=== PATIENT | female | born 1965 | race Caucasian/White ===

== ENCOUNTER 2016-05-18 14:51 | Inpatient (IN) | payer MEDICAID, OTHER ==
[~2016-05-18] VITALS: Ht 160 cm; Wt 52.4 kg
[2016-05-18 15:10] VITALS: BP 138/83; PULSE 68; RESP 22; TEMP 98.1; O2SAT 99
[2016-05-18] MEDS ORDERED: LORazepam 2 MG TAB PO PRN (15:15)
[2016-05-18] MEDS ORDERED: LORazepam 2 MG/ML VIAL IV PUSH PRN ×4 (15:15)
[2016-05-18] MEDS ORDERED: FLUMAZENIL 0.5 MG/5 ML VIAL IV PUSH PRN (15:15)
[2016-05-18] MEDS ORDERED: LORazepam 1 MG TAB PO PRN (15:15)
--- NOTE | 2016-05-18 15:19 | PD ---
HPI Chief Complaint: Rojas Act Time Seen by Provider: 15:11 Travel History International Travel<30 days: No Contact w/Intl Traveler<30days: No History of Present Illness HPI Patient is a 51-year-old female brought by police on a Rojas act for alcohol intoxication and suicide attempt. The patient states that overnight some time she woke up and was depressed that she has started drinking again and took approximately 20 Klonopin 0.5 mg tablets. This was an attempt to harm herself because she is depressed but she is "an alcoholic ". She notified her boyfriend who called police. She states that she has been sober for 3 months but began drinking again 3 days prior. She has been drinking constantly. She takes BuSpar in addition to Klonopin for depression and anxiety. She has had previous suicide attempts. She denies any chronic medical problems. She endorses tobacco use, denies illicit drug use. She states that several months ago she had severe alcohol withdrawals and she is concerned this will happen again. Her last alcoholic drink was approximately 1 hour prior. [facility] Past Medical History Diminished Hearing: No Kidney Stones: Yes Immunizations Current: Yes Menopausal: Yes : 2 Tubal Ligation: Yes Past Surgical History Section: Yes Social History Alcohol Use: No Tobacco Use: No Substance Use: No Allergies-Medications (Allergen,Severity, Reaction): Coded Allergies: Sulfa (Verified Allergy, Intermediate, Hives, 05/18/16) Reported Meds & Prescriptions Reported Meds & Active Scripts Active Reported Klonopin (Clonazepam) 1 Mg Tab 1 Mg PO TID Buspirone (Buspirone HCl) 15 Mg Tab 15 Mg PO BID Review of Systems General / Constitutional: No: Fever HENT: No: Headaches, Lightheadedness Cardiovascular: No: Chest Pain or Discomfort Respiratory: No: Shortness of Breath Gastrointestinal: No: Abdominal Pain Neurologic: No: Weakness, Syncope, Focal Abnormalities, Tremor, Ataxia, Sensory Disturbance Psychiatric: Positive: Anxiety, Depression, Suicidal Ideations, Substance Abuse (ethanol) Physical Exam Narrative GENERAL: Well-developed and well-nourished adult female in no acute distress. Appears intoxicated but not overly somnolent. SKIN: Warm and dry. Good turgor without tenting. HEAD: Normocephalic and atraumatic. EYES: PERRL bilaterally, 5mm. EOMI bilaterally. Mild right lateral subconjunctival hemorrhage present. No injection or icterus present. No proptosis. Lids without edema or erythema. ENT: Buccal mucosa pink and moist. Oropharynx free of erythema, tonsillar hypertrophy, masses, swelling, asymmetry and exudates. Uvula midline and airway patent. NECK: Supple, no midline tenderness, crepitus or step-offs. Trachea midline, no JVD. No cervical or facial lymphadenopathy. CARDIOVASCULAR: Regular rate and rhythm without murmurs, rubs, clicks or gallops. Radial and posterior tibial pulses 2+ bilaterally. No pedal edema. Negative bilateral Homans sign. RESPIRATORY: Clear to auscultation bilaterally with symmetrical rise and fall, no distress or use of accessory muscles. Speaks in full sentences. GASTROINTESTINAL: Non-tender, non-distended. Normal bowel sounds all 4 quadrants. No masses or organomegaly present. MUSCULOSKELETAL: Patient freely moving all four extremities spontaneously. Extremities without clubbing, cyanosis, or edema. No obvious deformities. NEUROLOGIC: CN II-XII grossly intact. Awake and alert. Motor grossly within normal limits. Normal speech. PSYCHIATRIC: Tearful. Data Data Last Documented VS Vital Signs Date Time Temp Pulse Resp B/P Pulse Ox O2 Delivery O2 Flow Rate FiO2 05/18/16 16:52 20 05/18/16 15:10 98.1 68 138/83 99 Orders Complete Blood Count With Diff (05/18/16 15:09) Comprehensive Metabolic Panel (05/18/16 15:09) Urinalysis - C+S If Indicated (05/18/16 15:09) Drug Screen, Random Urine (05/18/16 15:09) Ed Urine Pregnancytest Poc (05/18/16 15:09) Alcohol (Ethanol) (05/18/16 15:09) Salicylates (Aspirin) (05/18/16 15:09) Tylenol (Acetaminophen) (05/18/16 15:09) Psych Screen (05/18/16 15:09) Diet Regular Basic (05/18/16 Dinner) Alcohol Withdrawal Asmt-Ciwa ONCE (05/18/16 15:09) Flumazenil Inj (Romazicon Inj) (05/18/16 15:15) Lorazepam (Ativan) (05/18/16 15:15) Lorazepam Inj (Ativan Inj) (05/18/16 15:15) Lorazepam (Ativan) (05/18/16 15:15) Lorazepam Inj (Ativan Inj) (05/18/16 15:15) Lorazepam Inj (Ativan Inj) (05/18/16 15:15) Lorazepam Inj (Ativan Inj) (05/18/16 15:15) Beta Hcg (Quant/Titer) (05/18/16 15:30) Labs Laboratory Tests Test 05/18/16 05/18/16 15:20 15:30 Urine Color YELLOW Urine Turbidity HAZY Urine pH 5.5 Urine Specific Tiger 1.016 Urine Protein TRACE mg/dL Urine Glucose (UA) NEG mg/dL Urine Ketones NEG mg/dL Urine Occult Blood MOD Urine Nitrite NEG Urine Bilirubin NEG Urine Urobilinogen LESS THAN 2.0 MG/DL Urine Leukocyte Esterase TRACE Urine RBC 4 /hpf Urine WBC 4 /hpf Urine Squamous Epithelial 10 /hpf Cells Urine Bacteria RARE /hpf Urine Mucus FEW /lpf Microscopic Urinalysis Comment CULT NOT INDICATED Urine Opiates Screen NEG Urine Barbiturates Screen NEG Urine Amphetamines Screen NEG Urine Benzodiazepines Screen POS Urine Cocaine Screen NEG Urine Cannabinoids Screen NEG White Blood Count 9.3 TH/MM3 Red Blood Count 4.49 MIL/MM3 Hemoglobin 13.6 GM/DL Hematocrit 40.7 % Mean Corpuscular Volume 90.8 FL Mean Corpuscular Hemoglobin 30.3 PG Mean Corpuscular Hemoglobin 33.4 % Concent Red Cell Distribution Width 13.3 % Platelet Count 192 TH/MM3 Mean Platelet Volume 8.3 FL Neutrophils (%) (Auto) 58.9 % Lymphocytes (%) (Auto) 32.5 % Monocytes (%) (Auto) 6.1 % Eosinophils (%) (Auto) 1.4 % Basophils (%) (Auto) 1.1 % Neutrophils # (Auto) 5.4 TH/MM3 Lymphocytes # (Auto) 3.0 TH/MM3 Monocytes # (Auto) 0.6 TH/MM3 Eosinophils # (Auto) 0.1 TH/MM3 Basophils # (Auto) 0.1 TH/MM3 CBC Comment DIFF FINAL Differential Comment Sodium Level 140 MEQ/L Potassium Level 3.8 MEQ/L Chloride Level 105 MEQ/L Carbon Dioxide Level 24.0 MEQ/L Anion Gap 11 MEQ/L Blood Urea Nitrogen 15 MG/DL Creatinine 0.62 MG/DL Estimat Glomerular Filtration 101 ML/MIN Rate Random Glucose 72 MG/DL Calcium Level 8.6 MG/DL Total Bilirubin 0.4 MG/DL Aspartate Amino Transf 25 U/L (AST/SGOT) Alanine Aminotransferase 27 U/L (ALT/SGPT) Alkaline Phosphatase 45 U/L Total Protein 6.3 GM/DL Albumin 3.4 GM/DL Human Chorionic Gonadotropin, LESS THAN 1 Quant MIU/ML Salicylates Level 4.6 MG/DL Acetaminophen Level LESS THAN 2.0 MCG/ML Ethyl Alcohol Level 180 MG/DL MDM Medical Decision Making Medical Screen Exam Complete: Yes Emergency Medical Condition: Yes Interpretation(s) Laboratory Tests Test 05/18/16 05/18/16 15:20 15:30 Urine Color YELLOW (YELLW/STRAW) Urine Turbidity HAZY (CLEAR) Urine pH 5.5 (5.0-8.5) Urine Specific Tiger 1.016 (1.002-1.035) Urine Protein TRACE mg/dL (NEG-TRACE) Urine Glucose (UA) NEG mg/dL (NEG) Urine Ketones NEG mg/dL (NEG) Urine Occult Blood MOD (NEG) Urine Nitrite NEG (NEG) Urine Bilirubin NEG (NEG) Urine Urobilinogen LESS THAN 2.0 MG/DL (LESS THAN 2.0) Urine Leukocyte Esterase TRACE (NEG) Urine RBC 4 /hpf (0-3) Urine WBC 4 /hpf (0-5) Urine Squamous Epithelial 10 /hpf (0-5) Cells Urine Bacteria RARE /hpf (NONE) Urine Mucus FEW /lpf (OCC) Microscopic Urinalysis Comment CULT NOT INDICATED Urine Opiates Screen NEG (NEG) Urine Barbiturates Screen NEG (NEG) Urine Amphetamines Screen NEG (NEG) Urine Benzodiazepines Screen POS (NEG) Urine Cocaine Screen NEG (NEG) Urine Cannabinoids Screen NEG (NEG) White Blood Count 9.3 TH/MM3 (4.0-11.0) Red Blood Count 4.49 MIL/MM3 (4.00-5.30) Hemoglobin 13.6 GM/DL (11.6-15.3) Hematocrit 40.7 % (35.0-46.0) Mean Corpuscular Volume 90.8 FL (80.0-100.0) Mean Corpuscular Hemoglobin 30.3 PG (27.0-34.0) Mean Corpuscular Hemoglobin 33.4 % Concent (32.0-36.0) Red Cell Distribution Width 13.3 % (11.6-17.2) Platelet Count 192 TH/MM3 (150-450) Mean Platelet Volume 8.3 FL (7.0-11.0) Neutrophils (%) (Auto) 58.9 % (16.0-70.0) Lymphocytes (%) (Auto) 32.5 % (9.0-44.0) Monocytes (%) (Auto) 6.1 % (0.0-8.0) Eosinophils (%) (Auto) 1.4 % (0.0-4.0) Basophils (%) (Auto) 1.1 % (0.0-2.0) Neutrophils # (Auto) 5.4 TH/MM3 (1.8-7.7) Lymphocytes # (Auto) 3.0 TH/MM3 (1.0-4.8) Monocytes # (Auto) 0.6 TH/MM3 (0-0.9) Eosinophils # (Auto) 0.1 TH/MM3 (0-0.4) Basophils # (Auto) 0.1 TH/MM3 (0-0.2) CBC Comment DIFF FINAL Differential Comment Sodium Level 140 MEQ/L (136-145) Potassium Level 3.8 MEQ/L (3.5-5.1) Chloride Level 105 MEQ/L (98-107) Carbon Dioxide Level 24.0 MEQ/L (21.0-32.0) Anion Gap 11 MEQ/L (5-15) Blood Urea Nitrogen 15 MG/DL (7-18) Creatinine 0.62 MG/DL (0.50-1.00) Estimat Glomerular Filtration 101 ML/MIN Rate (>89) Random Glucose 72 MG/DL (74-106) Calcium Level 8.6 MG/DL (8.5-10.1) Total Bilirubin 0.4 MG/DL (0.2-1.0) Aspartate Amino Transf 25 U/L (15-37) (AST/SGOT) Alanine Aminotransferase 27 U/L (10-53) (ALT/SGPT) Alkaline Phosphatase 45 U/L (45-117) Total Protein 6.3 GM/DL (6.4-8.2) Albumin 3.4 GM/DL (3.4-5.0) Human Chorionic Gonadotropin, LESS THAN 1 Quant MIU/ML (0-5) Salicylates Level 4.6 MG/DL (2.8-20.0) Acetaminophen Level LESS THAN 2.0 MCG/ML (10.0-30.0) Ethyl Alcohol Level 180 MG/DL (0-5) Differential Diagnosis Alcohol intoxication versus benzodiazepine overdose versus SI versus depression versus anxiety versus bipolar disorder versus schizophrenia versus substance abuse versus mood disorder versus personality disorder versus adjustment disorder Narrative Course Patient is a 51-year-old female brought by police after her boyfriend notified them that she took Klonopin last evening in an attempt to kill herself. She states she is an alcoholic and has been sober for 3 months but has been drinking steadily for 3 days. Last evening she was depressed about this and took approximately 20 Klonopin 0.5 mg tablets. She is awake, alert and is ambulatory in the ED. She is tearful and appears slightly intoxicated but is not overly somnolent. No cyanosis or signs of respiratory distress/depression. She has no medical complaints at this time and her exam is unremarkable. Vitals normal. Ordered labs and psych screening as well as CIWA protocol initiation, although she has no signs of withdrawal at present and is still intoxicated and last drink one hour prior. Nursing staff gave patient Ativan as part of see what protocol. She became irritated and agitated and was pacing and was threatening to stab and ear speculum into her carotid artery. He was called patient was observed and she sat in the bed and cooperated. Her labs show normal CBC. Metabolic panel shows glucose of 72 but is otherwise unremarkable. Patient was given juice to drink. HCG less than 1. She was less 4.6, serum ethanol less than 2. Ethanol 180. UDS positive for benzodiazepines. Urinalysis shows 4 rbc's, 4 wbc's and 10 squamous epithelial cells, no culture as is likely contaminant. Patient denies any GI/ symptoms on reexam. She is medically cleared to proceed with psych evaluation Diagnosis Primary Impression: Suicidal behavior with attempted self-injury Additional Impressions: Alcohol abuse Alcohol intoxication Qualified Code: F10.120 - Alcohol intoxication, uncomplicated Condition: Stable Vasyl Augustine III May 18, 2016 15:19
[2016-05-18 15:56] LABS: AUTOMATED NEUTROPHIL # 5.4 TH/MM3 (1.8-7.7); BASOPHIL # 0.1 TH/MM3 (0-0.2); BASOPHIL % 1.1 % (0.0-2.0); EOSINOPHIL # 0.1 TH/MM3 (0-0.4); EOSINOPHIL % 1.4 % (0.0-4.0); HEMATOCRIT 40.7 % (35.0-46.0); HEMO FLAGS DIFF FINAL; LYMPH % 32.5 % (9.0-44.0); MEAN CELL VOLUME 90.8 FL (80.0-100.0); MEAN CORPUSCULAR HEMOGLOBIN 30.3 PG (27.0-34.0); MEAN CORPUSCULAR HGB CONC 33.4 % (32.0-36.0); MONO % 6.1 % (0.0-8.0); NEUT % 58.9 % (16.0-70.0); PLATELET COUNT 192 TH/MM3 (150-450); RED BLOOD COUNT 4.49 MIL/MM3 (4.00-5.30); RED CELL DISTRIBUTION WIDTH 13.3 % (11.6-17.2); WHITE BLOOD COUNT 9.3 TH/MM3 (4.0-11.0)
[2016-05-18 16:16] LABS: BACTERIA, URINE RARE /hpf; BLOOD, URINE MOD (NEG); COMMENT (UR) CULT NOT INDICATED; CULTURE IF INDICATED CULT NOT INDICATED; GLUCOSE,URINE NEG (NEG); KETONE, URINE NEG (NEG); MUCUS URINE FEW /lpf (OCC); NITRITE,URINE NEG (NEG); PH, URINE 5.5 (5.0-8.5); SQUAMOUS EPITHELIAL CELL URINE 10 /hpf (0-5); URINE COLOR YELLOW (YELLW/STRAW)
[2016-05-18 16:18] LABS: AMPHETAMINE, URINE NEG (NEG); BARBITURATES, URINE NEG (NEG); COCAINE, URINE NEG (NEG)
[2016-05-18 16:32] LABS: ACETAMINOPHEN LESS THAN 2.0 MCG/ML (10.0-30.0); ALT (GPT) 27 U/L (10-53); ANION GAP 11 MEQ/L (5-15); AST (GOT) 25 U/L (15-37); BLOOD UREA NITROGEN 15 MG/DL (7-18); CHLORIDE 105 MEQ/L (98-107); GLOMERULAR FILTRATION RATE 101 ML/MIN (>89); POTASSIUM 3.8 MEQ/L (3.5-5.1); SODIUM (NA) 140 MEQ/L (136-145)
[2016-05-18 16:36] LABS: ALKALINE PHOSPHATASE 45 U/L (45-117); BETA HCG QUANT LESS THAN 1 MIU/ML (0-5); TOTAL BILIRUBIN ADULT 0.4 MG/DL (0.2-1.0)
[2016-05-18] MEDS ORDERED: CLON1 PO (16:51)
[2016-05-18] MEDS ORDERED: BUSP15TA PO (16:51)
[2016-05-18] MEDS ORDERED: MAGNESIUM HYDROXIDE SUSP 30 ML CUP PO PRN (22:00)
[2016-05-18] MEDS ORDERED: ALUMINUM/MAGNESIUM/SIMETH 30 ML CUP PO PRN (22:00)
[2016-05-18 22:20] VITALS: BP 139/66; PULSE 88; RESP 18; O2SAT 96
[2016-05-18 23:35] VITALS: BP 129/70; PULSE 90; RESP 18; TEMP 98.5; O2SAT 96
[2016-05-19 05:46] VITALS: BP 129/93; PULSE 90; RESP 18; TEMP 98.2; O2SAT 95
[2016-05-19] MEDS: NICOTINE 21 MG/24 HR PATCH T-DERMAL SCH (09:00)
[2016-05-19] MEDS: REMOVE OLD NICOTINE PATCH T-DERMAL SCH (09:00)
[2016-05-19] MEDS ORDERED: LORazepam 2 MG/ML VIAL IM PRN ×4 (11:30→15:15)
[2016-05-19] MEDS: ACETAMINOPHEN 325 MG TAB PO PRN ×2 (11:30→16:03)
--- NOTE | 2016-05-19 11:47 | MH ---
cc: MAURILIO CHAPARRO MD DATE OF ADMISSION 05/18/2016 ADMITTING DIAGNOSES Alcohol dependence with alcohol induced mood disorder F10.24. LEGAL STATUS The patient is declining ongoing voluntary psychiatric hospitalization. I will retain her under the Rojas ACT for now and possibly initiate a physician certificate as detailed below. The patient retains capacity to consent for medications. HISTORY OF PRESENT ILLNESS Ms. Waller is a 51-year-old female with a history of alcohol use disorder who presents under a Rojas ACT following a Klonopin overdose. The patient apparently made the overdose in the setting of unhappiness at her relapse to alcohol. Reviewing the electronic medical record, I see no prior psychiatric contact within our system. The patient seen and examined with counselor. Chart reviewed. Case discussed with nurse on the inpatient psychiatric unit. On my examination today, the patient reports "I just wanted to go to sleep. I do not want to . I just want to stop drinking. I have had great success with AA until about 10 days ago. It got cold and I stopped going." The patient reports that she had been sober for about the last three months, per relapsed to alcohol this past Tuesday. She has been drinking about a pint of liquor at least a day to start. She denies any feelings of low mood, although she is somewhat ashamed and frustrated with herself for relapsing. No hopelessness or worthlessness. No reported sleep disruption or appetite disruption. No reported focus or concentration issues. She denies any suicidal ideation and says that she wants to see her daughter graduate from high school. She also wants to live for her pet dogs. No homicidal ideation. Denies audiovisual hallucinations and I can elicit no delusional beliefs. I can detect no evidence of nate or hypomania in this patient. The remainder of the psychiatric ROS is negative. PAST PSYCHIATRIC HISTORY The patient denies a history of psychiatric diagnosis. She denies a history of inpatient or outpatient psychiatric treatment. She denies a history of previous suicide attempts. FAMILY HISTORY The patient denies a family history of serious mental illness, substance use disorder, or suicide. CHEMICAL DEPENDENCY HISTORY The patient reports that she had been sober for three months, but relapsed this past Tuesday to alcohol. She drinks at least a pint of liquor daily. Her longest sober time was 10 years which she accomplished with AA. She has had episodes of SVT in the past from alcohol withdrawal, but denies any history of DTs or seizures. She does endorse a history of blackouts and also had a DUI in 1999. She smokes about two packs of cigarettes a day. She denies any other substance use. SOCIAL HISTORY The patient denies a history of physical, verbal or sexual abuse. She lives with her daughter, boyfriend and two dogs. She has been with her boyfriend for about five years. She has two daughters. She is high school educated. She works as a property administrator and a payroll secretary. She denies any or legal history. She does endorse islam or spiritual beliefs. She denies any access to guns or firearms. PAST MEDICAL HISTORY The patient denies any history of medical problems. ALLERGIES The patient reports an allergy to SULFA. MEDICATIONS The patient reports that she takes no medications on an outpatient basis. The Klonopin was reportedly an old prescription. She also had been prescribed BuSpar in the past. REVIEW OF SYSTEMS The patient reports a headache, but reports no vision or hearing changes, no chest pain, no shortness of breath, no bowel or bladder issues. No symptoms of withdrawal. No other physical complaints. PHYSICAL EXAMINATION A physical examination was completed in the emergency room by the ER staff and the patient was medically cleared. On my examination today, the patient appears to be in no acute physical distress. She is a well-nourished, well-developed middle-aged female. No hand tremor, no diaphoresis, no mydriasis, no tongue fasciculations, no other signs of alcohol withdrawal. No other abnormal motor movements noted. VITAL SIGNS: Temperature is 98.2, pulse is 90, respirations 18, blood pressure 129/93, pulse oximetry of 95% on room air. LABORATORY FINDINGS CBC is unremarkable. CMP is remarkable only for a very mild hypoglycemia at 72. Beta hCG is negative. Toxicology is positive for benzodiazepines and alcohol level was 180 on presentation here. Urinalysis revealed moderate occult blood and trace leukocyte esterase, but no pyuria. MENTAL STATUS EXAM The patient is in hospital gown. She is somewhat disheveled, but maintaining basic hygiene. She is awake and alert and oriented x3. No evidence of delirium. No abnormal motor movements noted. Speech is within normal limits for rate, tone and volume. Language and fund of knowledge seem average for age. Mood is reportedly not particularly depressed, but affect is somewhat sullen and blunted. Thought process linear. No loosening of associations. No evident delusions. Denies audiovisual hallucinations. Denies suicidal or homicidal ideation. Insight and judgment seems fair to poor at best. ASSESSMENT/PLAN This is a 51-year-old female with a psychiatric history as detailed above who presents under a Rojas ACT after ingesting some Klonopin out of frustration at relapsing to alcohol. The patient denies that this was a genuine suicidal attempt and denies any suicidal ideation at this time. The ingestion did take place in the setting of alcohol and she does endorse a recent relapse to alcohol after about three months of sobriety. My suspicion is that the patient's issues are chiefly substance use related, and she would likely benefit from more intense attention at an addiction receiving facility. However, I would like the counselor to obtain collateral from the patient's support system to ensure that there is not some more occult depressive diathesis at play here. The patient requires psychiatric admission at this time for observation and safety. Admit inpatient. I will leave the patient under the Rojas ACT for now. If the patient's issues do field return repairer to be primarily substance use disorder, then I will initiate a physician certificate with the Rojas ACT. If not, we may observe the patient under the Rojas ACT. The patient retains capacity to consent for medications. I will place the patient under a CIWA protocol with Ativan for the management of any withdrawal, as well as thiamine and folate. Seizure and fall precautions. Vitals every shift. Counselor to see. Disposition planning. Estimated length of stay: Three days. UPDATE: Spoke with counselor, who has obtained collateral from boyfriend. As suspected, this is chiefly a substance use issue. I will lift the Rojas Act and place patient on a physician's certificate. I have notified the devulcanizer charger to contact [facility] to arrange transfer to addiction receiving facility once a bed is available. Maurilio LUX /11:13 AM 11:26 AM [facility]INSON
[2016-05-19 19:54] VITALS: BP 138/78; PULSE 79; RESP 18; TEMP 98.3; O2SAT 100
[2016-05-20 06:31] VITALS: BP 121/65; PULSE 78; RESP 18; TEMP 98; O2SAT 97
[2016-05-20] MEDS: REMOVE OLD NICOTINE PATCH T-DERMAL SCH (09:00)
[2016-05-20] MEDS: FOLIC ACID 1 MG TAB PO SCH (09:13)
[2016-05-20] MEDS: NICOTINE 21 MG/24 HR PATCH T-DERMAL SCH (09:13)
[2016-05-20] MEDS: THIAMINE HCL 100 MG TAB PO SCH (09:13)
--- NOTE | 2016-05-20 11:02 | HHI.PYPN ---
Subjective Remarks Patient seen and examined with counselor and nursing staff. Chart reviewed. Case discussed with nursing staff. Patient is presently under a physician's certificate and nursing staff has checked with the addiction receiving facility this morning; there are no beds currently but addiction receiving facility sales representative consultant said that they would call back this afternoon if there is an opening. On my examination today, patient is fairly sarcastic and sullen. She is dismissive of the care she is receiving here and takes no ownership for her ingestion. She thinks that she can manage her substance use better on her own. She denies any suicidal or homicidal ideation. Requests Motrin for a headache , and I did discuss with her the potential risk of this medication in an alcoholic patient. Review of Systems Other Complains of typical headache; says she normally takes Motrin. No other physical complaints. No reported symptoms of withdrawal. Objective Alert: Yes [place]: Person (O x 3) Mood: Calm Affect: Restricted (sullen and dysphoric) Memory Intact: Comment (seems intact on clinical exam) Hallucinations: Other (no AVH) Delusions: No Delusion Type: Other (no delusions) Suicidal: Ideation (denies suicidal ideation) Homicidal: Ideation (denies homicidal ideation) Insight/Judgement Poor Remarks No hand tremor, no diaphoresis, no other signs of withdrawal noted. No other motoric abnormalities noted. Thought processes linear. Labs Labs reviewed. No new labs. Vitals/IOs Vital Signs Date Time Temp Pulse Resp B/P Pulse Ox O2 Delivery O2 Flow Rate FiO2 05/20/16 06:31 98.0 78 18 121/65 97 05/18/16 22:20 Room Air Assessment & Plan Problem List: (1) Alcohol dependence with alcohol-induced mood disorder ICD Code: F10.24 Assessment & Plan Pt remains on PC with plan to send her to ACT once a bed is available. Continue CIWA PRN withdrawal. Add Motrin for headache. Continue other medications and care as ordered. Justification for Cont. Inpt. Monitoring for safety. Risk for decompensation. Discharge Planning Try to get pt to ACT drug/alcohol bed today or tomorrow am before PC expires. Request HC Surrog/Guard Advoc?: No Maurilio Acuna MD May 20, 2016 11:02
[2016-05-20] MEDS: IBUPROFEN 800 MG TAB PO PRN ×5 (11:48→19:49)
[2016-05-20] MEDS: ACETAMINOPHEN 325 MG TAB PO PRN ×2 (15:14→16:51)
[2016-05-20 18:31] VITALS: BP 150/69; PULSE 75; RESP 16; TEMP 98.6; O2SAT 99
[2016-05-21 05:32] VITALS: BP 116/73; PULSE 72; RESP 16; TEMP 97.7; O2SAT 96
[2016-05-21] MEDS: REMOVE OLD NICOTINE PATCH T-DERMAL SCH (09:00)
[2016-05-21] MEDS: NICOTINE 21 MG/24 HR PATCH T-DERMAL SCH (09:37)
[2016-05-21] MEDS: FOLIC ACID 1 MG TAB PO SCH (09:38)
[2016-05-21] MEDS: THIAMINE HCL 100 MG TAB PO SCH (09:38)
[2016-05-21] MEDS: IBUPROFEN 800 MG TAB PO PRN ×2 (11:56→11:58)
[2016-05-21] MEDS ORDERED: VITA100T2 PO (12:13)
[2016-05-21] MEDS ORDERED: FOLI1TAB4 PO (12:13)
--- NOTE | 2016-05-21 12:13 | HHI.DS ---
Psychiatry Discharge Summary Inpatient Psychiatric care?: Yes Advance Directive: Yes Mental Health AdvanceDirective: No Health Care Proxy: No Admission Admission Date May 18, 2016 at 23:07 Admission Diagnosis: (1) Alcohol dependence with alcohol-induced mood disorder ICD Code: F10.24 Brief History Ms. Waller is a 51-year-old female with a history of alcohol use disorder who presents under a Rojas ACT following a Klonopin overdose. The patient apparently made the overdose in the setting of unhappiness at her relapse to alcohol. Reviewing the electronic medical record, I see no prior psychiatric contact within our system. The patient seen and examined with counselor. Chart reviewed. Case discussed with nurse on the inpatient psychiatric unit. On my examination today, the patient reports "I just wanted to go to sleep. I do not want to . I just want to stop drinking. I have had great success with AA until about 10 days ago. It got cold and I stopped going." The patient reports that she had been sober for about the last three months, per relapsed to alcohol this past Tuesday. She has been drinking about a pint of liquor at least a day to start. She denies any feelings of low mood, although she is somewhat ashamed and frustrated with herself for relapsing. No hopelessness or worthlessness. No reported sleep disruption or appetite disruption. No reported focus or concentration issues. She denies any suicidal ideation and says that she wants to see her daughter graduate from high school. She also wants to live for her pet dogs. No homicidal ideation. Denies audiovisual hallucinations and I can elicit no delusional beliefs. I can detect no evidence of nate or hypomania in this patient. The remainder of the psychiatric ROS is negative. Tobacco Use In Past 30 Days: Refused To Answer Alcohol Use: Monthly or Less Hospital Course Patient was admitted to a locked, inpatient psychiatric unit. Appropriate precautions were in place throughout patient's hospital stay. Patient was seen and examined daily on the unit by psychiatry and also visited by counselor. Patient was placed on a CIWA scale with Ativan for the management of any withdrawal. Patient did not experience clinically significant withdrawal while on the inpatient unit. There was no evidence of any suicidality or homicidality on the inpatient unit. Patient remained in good behavioral control. On the day of discharge: Case discussed with nursing staff. Patient is described no behavioral problem. On my examination today, the patient requests discharge from the inpatient psychiatric unit. Nursing staff has once again contacted the addiction receiving facility, and they have once again said they have no capacity for the patient. Patient's physician's certificate is expiring today. She denies any suicidal or homicidal ideation. She denies any AVH and there is no evidence of psychosis. No issues with mood. No reported withdrawal symptoms or physical complaints. Patient is declining voluntary psychiatric hospitalization. I have no basis to retain this patient involuntarily at this point as there has been no evidence of ongoing risk of harm to self and she is attending to her basic needs. I will arrange for her discharged today in stable condition. We had strongly encourage the patient to accept at the very least a chemical dependency referral, but she has declined any referral on discharge. Patient is to follow-up with primary care. Lengthy psychoeducation to the patient regarding the management of alcohol use disorder. Patient counseled to return to the psychiatric emergency room for any concerning psychiatric symptoms. Results Blood Pressure 116 / 73 Vital Signs Date Time Temp Pulse Resp B/P Pulse Ox O2 Delivery O2 Flow Rate FiO2 05/21/16 05:32 97.7 72 16 116/73 96 05/18/16 22:20 Room Air Laboratory Tests Test 05/18/16 05/18/16 15:20 15:30 Urine Turbidity HAZY (CLEAR) Urine Occult Blood MOD (NEG) Urine Leukocyte Esterase TRACE (NEG) Urine RBC 4 /hpf (0-3) Urine Bacteria RARE /hpf (NONE) Urine Mucus FEW /lpf (OCC) Urine Benzodiazepines Screen POS (NEG) Random Glucose 72 MG/DL (74-106) Total Protein 6.3 GM/DL (6.4-8.2) Acetaminophen Level LESS THAN 2.0 MCG/ML (10.0-30.0) Ethyl Alcohol Level 180 MG/DL (0-5) Summary of Procedures None done Imaging None done Pending results at discharge: No Medications # of Antipsychotic meds at D/C: 0 Approp Antipsych med options 1 - Minimum of three failed multiple trials of monotherapy. 2 - Documented plan to taper to monotherapy due to previous use of multiple meds OR cross-taper in progress at D/C. 3 - Documentation of augmentation of Clozapine. 4 - Justification other than those listed in allowable values 1-3, document here : Discharge Discharge Date: May 21, 2016 Discharge Diagnosis: (1) Alcohol dependence Diagnosis: Principal ICD Code: F10.20 Mental Status Exam at Disch Patient is casually dressed. She is well groomed and appears to be maintaining basic hygiene. She is awake and alert and oriented 3. No abnormal motor movements noted. No signs of withdrawal noted. Steady gait and station. Speech is within normal limits for rate, tone and volume. Language and fund of knowledge seem adequate and appropriate for age. Mood is fair and affect is blunted. Thought process linear. No loosening of associations. No evident delusions. Denies AVH. Denies suicidal or homicidal ideation. Insight and judgment are fair. Pt Condition on Discharge: Stable Discharge Disposition: Discharge Home Discharge Instructions Diet Instructions: As Tolerated, No Restrictions Activities you can perform: Weight Bearing as Kareen Scheduled Appointment: patient declines New Medications: Folic Acid (Folate) 1 Mg Tab 1 MG PO DAILY Nutritional Supplement Days 30 Ref 0 TAB Thiamine (Vitamin B-1) 100 Mg Tab 100 MG PO DAILY Nutritional Supplement Days 30 Ref 0 TAB Discontinued Medications: Buspirone (Buspirone) 15 Mg Tab 15 MG PO BID Anxiety Ref 0 TAB Clonazepam (Klonopin) 1 Mg Tab 1 MG PO TID Ref 0 TAB Discharge Time <= 30 minutes Discharge/Advance Care Plan Health Problems: (1) Alcohol dependence with alcohol-induced mood disorder Goals to promote your health * To prevent worsening of your condition and complications * To maintain your health at the optimal level Directions to meet your goals Take your medications as prescribed Follow your dietary instruction Follow activity as directed Keep your appointments as scheduled Take your immunizations and boosters as scheduled If your symptoms worsen call your PCP, if no PCP go to Urgent Care Center or Emergency Room For 22/11 questions related to your inpatient stay or results of tests pending at discharge, please contact Dr. Maurilio Acuna at Smoking is Dangerous to Your Health. Avoid second hand smoking Problem Qualifiers (1) Alcohol dependence: Qualified Code: F10.20 - Uncomplicated alcohol dependence Maurilio Acuna MD May 21, 2016 12:13
== END 2016-05-21 14:00 | disposition home or self-care (01) | DRG 897 ==
LOC: NEPA 14:51 → NEDA 23:07 → H270 23:49
PROVIDERS: ADMIT Psychiatry & Neurology Psychiatry; ATTEND Psychiatry & Neurology Psychiatry
DX: F10.24 Alcohol dependence with alcohol-induced mood disorder (principal); R51 Headache; T42.4X2A Poisoning by benzodiazepines, intentional self-harm, initial encounter; Y90.6 Blood alcohol level of 120-199 mg/100 ml; Z88.2 Allergy status to sulfonamides; Z72.0 Tobacco use
CPT/HCPCS: 80053; 80307; 80320; 80329; 81001; 84702; 84703; 85025; 96374; G0480; J2060

== ENCOUNTER 2016-08-10 15:04 | Emergency (ER) | payer MEDICAID, OTHER ==
[~2016-08-10] VITALS: Ht 152.4 cm; Wt 56.8 kg
[2016-08-10] VITALS (7 sets, daily range): BP systolic 95–152; BP diastolic 51–73; PULSE 68–82; RESP 16–22; TEMP 98.4; O2SAT 93–100
[~2016-08-10 15:04] MED LIST: FOLI1TAB4 PO; VITA100T2 PO
--- NOTE | 2016-08-10 15:26 | PD ---
HPI Chief Complaint: Rojas act/EtOH/suicidal ideation Time Seen by Provider: 15:22 Travel History International Travel<30 days: No Contact w/Intl Traveler<30days: No Traveled to known affect area: No History of Present Illness HPI 51-year-old female brought in under the Rojas act was signed ideation. Patient states she is a chronic alcoholic who cannot get sober. Patient called 911 herself to report suicidal ideation. When officers arrived she willingly admitted that she was suicidal but does not have a specific plan. Patient has history of anxiety and difficulty with withdrawal from EtOH. She denies history of seizures. Patient denies any acute medical issues at this time. She is allergic to sulfa. PFS Past Medical History Cancer: No Cardiovascular Problems: No Diabetes: No Diminished Hearing: No Headaches: No Kidney Stones: Yes Psychiatric: No Immunizations Current: Yes Seizures: No Menopausal: Yes : 2 Tubal Ligation: Yes Past Surgical History Section: Yes Social History Alcohol Use: Yes (binge) Tobacco Use: Yes Substance Use: No Allergies-Medications (Allergen,Severity, Reaction): Coded Allergies: Sulfa (Verified Allergy, Intermediate, Hives, 08/10/16) Reported Meds & Prescriptions Reported Meds & Active Scripts Active No Active Prescriptions or Reported Medications Review of Systems ROS Limitations: Intoxication Except as stated in HPI: all other systems reviewed are Neg General / Constitutional: No: Fever Eyes: No: Visual changes HENT: No: Headaches Cardiovascular: No: Chest Pain or Discomfort Respiratory: No: Shortness of Breath Gastrointestinal: No: Abdominal Pain Genitourinary: No: Dysuria Musculoskeletal: No: Pain Skin: No Rash Neurologic: No: Weakness Psychiatric: No: Depression Endocrine: No: Polydipsia Hematologic/Lymphatic: No: Easy Bruising Physical Exam Narrative GENERAL: Patient is anxious but no acute distress. SKIN: Warm and dry. Normal color. Normal turgor. HEAD: Atraumatic. Normocephalic. EYES: Pupils equal and round. No scleral icterus. No injection or drainage. ENT: No nasal bleeding or discharge. Mucous membranes pink and moist. Pharynx is normal. Airway is patent. NECK: Trachea midline. No JVD. CARDIOVASCULAR: Regular rate and rhythm. No murmurs gallops or rubs. RESPIRATORY: No accessory muscle use. Clear to auscultation. Breath sounds equal bilaterally. MUSCULOSKELETAL: Extremities without clubbing, cyanosis, or edema. No obvious deformities. NEUROLOGICAL: Awake and alert. No obvious cranial nerve deficits. Motor grossly within normal limits. Five out of 5 muscle strength in the arms and legs. Normal speech. PSYCHIATRIC: Appropriate mood and affect; insight and judgment normal. Data Data Last Documented VS Vital Signs Date Time Temp Pulse Resp B/P Pulse Ox O2 Delivery O2 Flow Rate FiO2 08/10/16 16:30 82 19 112/61 93 08/10/16 15:30 98.4 Orders Complete Blood Count With Diff (08/10/16 15:19) Comprehensive Metabolic Panel (08/10/16 15:19) Urinalysis - C+S If Indicated (08/10/16 15:19) Ed Urine Pregnancytest Poc (08/10/16 15:19) Psych Screen (08/10/16 15:19) Drug Screen, Random Urine (08/10/16 15:19) Alcohol (Ethanol) (08/10/16 15:19) Chlordiazepoxide (Librium) (08/10/16 15:30) Lorazepam (Ativan) (08/10/16 15:30) Diphenhydramine Inj (Benadryl Inj) (08/10/16 15:45) Lorazepam Inj (Ativan Inj) (08/10/16 16:15) Haloperidol Inj (Haldol Inj) (08/10/16 16:15) Restraints Violent (08/10/16 16:27) Sodium Chlor 0.9% 1000 Ml Inj (Ns 1000 M (08/10/16 16:45) Labs Laboratory Tests Test 08/10/16 15:35 White Blood Count 9.7 TH/MM3 Red Blood Count 4.54 MIL/MM3 Hemoglobin 13.6 GM/DL Hematocrit 41.0 % Mean Corpuscular Volume 90.3 FL Mean Corpuscular Hemoglobin 30.0 PG Mean Corpuscular Hemoglobin 33.3 % Concent Red Cell Distribution Width 13.4 % Platelet Count 221 TH/MM3 Mean Platelet Volume 7.9 FL Neutrophils (%) (Auto) 56.7 % Lymphocytes (%) (Auto) 34.8 % Monocytes (%) (Auto) 5.5 % Eosinophils (%) (Auto) 1.4 % Basophils (%) (Auto) 1.6 % Neutrophils # (Auto) 5.5 TH/MM3 Lymphocytes # (Auto) 3.4 TH/MM3 Monocytes # (Auto) 0.5 TH/MM3 Eosinophils # (Auto) 0.1 TH/MM3 Basophils # (Auto) 0.2 TH/MM3 CBC Comment DIFF FINAL Differential Comment Urine Color LIGHT-YELLOW Urine Turbidity CLEAR Urine pH 5.0 Urine Specific [place] 1.008 Urine Protein NEG mg/dL Urine Glucose (UA) NEG mg/dL Urine Ketones NEG mg/dL Urine Occult Blood LARGE Urine Nitrite NEG Urine Bilirubin NEG Urine Urobilinogen LESS THAN 2.0 MG/DL Urine Leukocyte Esterase NEG Urine RBC 8 /hpf Urine WBC 2 /hpf Urine Squamous Epithelial 2 /hpf Cells Urine Bacteria RARE /hpf Urine Mucus FEW /lpf Microscopic Urinalysis Comment CULT NOT INDICATED Sodium Level 146 MEQ/L Potassium Level 4.2 MEQ/L Chloride Level 114 MEQ/L Carbon Dioxide Level 22.1 MEQ/L Anion Gap 10 MEQ/L Blood Urea Nitrogen 10 MG/DL Creatinine 0.67 MG/DL Estimat Glomerular Filtration 93 ML/MIN Rate Random Glucose 71 MG/DL Calcium Level 8.8 MG/DL Total Bilirubin 0.3 MG/DL Aspartate Amino Transf 31 U/L (AST/SGOT) Alanine Aminotransferase 28 U/L (ALT/SGPT) Alkaline Phosphatase 42 U/L Total Protein 7.0 GM/DL Albumin 3.5 GM/DL Urine Opiates Screen NEG Urine Barbiturates Screen NEG Urine Amphetamines Screen NEG Urine Benzodiazepines Screen NEG Urine Cocaine Screen NEG Urine Cannabinoids Screen NEG Ethyl Alcohol Level 299 MG/DL [facility] Medical Decision Making Medical Screen Exam Complete: Yes Emergency Medical Condition: Yes Differential Diagnosis Rojas act. EtOH intoxication. Suicidal ideation. Narrative Course Patient is medically stable at time of exam. Psychiatric labs ordered per protocol including urine test. Patient is given 50 mg Librium by mouth as well as 1 mg lorazepam by mouth. Patient is awaiting medical bed placement. Patient is medically cleared for psychiatric evaluation. Patient became more and more agitated and anxious. She was moved to [facility]. Patient was placed in soft physical restraints, and was given 50 mg Benadryl IV as well as 5 of Haldol and [address] Mandel went in to see the patient at 1611 hrs. Labs returned showing normal CBC. CMP shows elevated sodium 146. Chloride of 114. BUN/creatinine are normal. Liver functions are normal. Alkaline phosphatase slightly decreased at 42. Patient is negative for urine drug screen, serum alcohol levels 299. Urinalysis is unremarkable except for 8 RBCs per high-power field. Patient is given 1 L normal saline IV. Patient is medically cleared for psychiatric evaluation. Diagnosis Primary Impression: Alcohol dependence with alcohol-induced mood disorder Additional Impressions: Suicidal ideations Medical clearance for psychiatric admission Scripts No Active Prescriptions or Reported Meds Condition: Stable Marvin Mccoy Aug 10, 2016 15:26
[2016-08-10] MEDS ORDERED: LORazepam 1 MG TAB PO ONE (15:30)
[2016-08-10] MEDS ORDERED: chlordiazePOXIDE 25 MG CAP PO ONE (15:30)
[2016-08-10] MEDS ORDERED: diphenhydrAMINE HCL 50 MG/ML VIAL IV PUSH ONE (15:45)
[2016-08-10 15:58] LABS: AUTOMATED NEUTROPHIL # 5.5 TH/MM3 (1.8-7.7); BASOPHIL # 0.2 TH/MM3 (0-0.2); BASOPHIL % 1.6 % (0.0-2.0); EOSINOPHIL # 0.1 TH/MM3 (0-0.4); EOSINOPHIL % 1.4 % (0.0-4.0); HEMO FLAGS DIFF FINAL; LYMPH % 34.8 % (9.0-44.0); LYMPHOCYTE # 3.4 TH/MM3 (1.0-4.8); MEAN CELL VOLUME 90.3 FL (80.0-100.0); MEAN CORPUSCULAR HGB CONC 33.3 % (32.0-36.0); MONO % 5.5 % (0.0-8.0); NEUT % 56.7 % (16.0-70.0); PLATELET COUNT 221 TH/MM3 (150-450); RED BLOOD COUNT 4.54 MIL/MM3 (4.00-5.30); RED CELL DISTRIBUTION WIDTH 13.4 % (11.6-17.2); WHITE BLOOD COUNT 9.7 TH/MM3 (4.0-11.0)
[2016-08-10 16:06] LABS: BACTERIA, URINE RARE /hpf; BLOOD, URINE LARGE (NEG); COMMENT (UR) CULT NOT INDICATED; CULTURE IF INDICATED CULT NOT INDICATED; GLUCOSE,URINE NEG (NEG); KETONE, URINE NEG (NEG); MUCUS URINE FEW /lpf (OCC); NITRITE,URINE NEG (NEG); SQUAMOUS EPITHELIAL CELL URINE 2 /hpf (0-5); URINE COLOR LIGHT-YELLOW (YELLW/STRAW)
[2016-08-10] MEDS ORDERED: LORazepam 2 MG/ML VIAL IM ONE (16:15)
[2016-08-10] MEDS ORDERED: HALOPERIDOL LACTATE 5 MG/ML AMP IM ONE (16:15)
[2016-08-10 16:30] LABS: ALKALINE PHOSPHATASE 42 U/L (45-117); ALT (GPT) 28 U/L (10-53); ANION GAP 10 MEQ/L (5-15); AST (GOT) 31 U/L (15-37); BICARBONATE 22.1 MEQ/L (21.0-32.0); BLOOD UREA NITROGEN 10 MG/DL (7-18); CHLORIDE 114 MEQ/L (98-107); GLOMERULAR FILTRATION RATE 93 ML/MIN (>89); SODIUM (NA) 146 MEQ/L (136-145); TOTAL BILIRUBIN ADULT 0.3 MG/DL (0.2-1.0)
[2016-08-10 16:35] LABS: POTASSIUM 4.2 MEQ/L (3.5-5.1)
[2016-08-10 16:36] LABS: AMPHETAMINE, URINE NEG (NEG); BARBITURATES, URINE NEG (NEG); COCAINE, URINE NEG (NEG)
[2016-08-10] MEDS ORDERED: SODIUM CHLOR 0.9% 1000 ML INJ 1,000 ML IV ONE (16:45)
[2016-08-11 02:14] VITALS: BP 139/63; PULSE 18; PULSE 91; RESP 18; O2SAT 95
[2016-08-11 06:34] VITALS: BP 170/82; PULSE 96; RESP 19; O2SAT 99
--- NOTE | 2016-08-11 11:30 | PD ---
History of Present Illness Chief Complaint: Psychiatric Symptoms Time Seen by Provider: 11:15 Travel History International Travel<30 Days: No Contact w/Intl Traveler<30days: No Known affected area: No Legal Status Legal Status: Rojas Act Rojas Act Signed By: Shruthi Riojas History of Present Illness: 51-year-old female with long history of alcoholism, who was recently in a alcohol program. After leaving the program she went back to binge drinking. She became upset with herself as a result. However, at this time she denies suicidal or homicidal ideation, plan or intention. She also denies any psychotic symptoms and her cognition is intact. She is not intoxicated at this time. She is verbally huong for safety. She is being encouraged to return to and appears willing to do so. In this physician's opinion, she does not meet criteria for a Rojas act for inpatient psychiatric hospitalization. PFSH Past Medical History Medical History: Denies Significant Hx Cancer: No Cardiovascular Problems: No Diabetes: No Diminished Hearing: No Headaches: No Kidney Stones: Yes Psychiatric: No Immunizations Current: Yes Seizures: No ?: Not Menopausal: Yes : 3 Para: 2 Miscarriage: 1 : 0 Tubal Ligation: Yes Past Surgical History Surgical History: No Previous Surgery Section: Yes Psychiatric History Psychiatric History Hx Psychiatric Treatment: PATIENT WAS LAST ADMITTED TO [facility] FROM 05/18/16 TO 05/21/16 FOR SUBSTANCE INDUCED MOOD DISORDER. History of Inpatient Treatment: Yes Guns or firearms in home: No Social History Hx Alcohol Use: Yes (binge) Hx Tobacco Use: Yes Hx Substance Use: Yes Substance Use Type: Alcohol Other Substances Used: IT IS UNKNOWN IF SHE HAS REC'D SUBSTANCE ABUSE TREATMENT Hx of Substance Use Treatment: Yes Allergies-Medications (Allergen,Severity, Reaction): Coded Allergies: Sulfa (Verified Allergy, Intermediate, Hives, 08/10/16) Reported Meds & Prescriptions Reported Meds & Active Scripts Active No Active Prescriptions or Reported Medications Review of Systems ROS Limitations: Clinical Condition Except as stated in HPI: all other systems reviewed are Neg Exam Exam Limitations: Clinical Condition Alert: Yes Bertram: Person, Place, Date, Situation Mood: Calm Affect: Appropriate Speech: Clear, Logical Eye Contact: Normal Memory Intact: Immediate, Recent, Remote Insight/Judgement Adequate except with regard to her drinking alcohol. MDM Medical Decision Making Medical Record Reviewed: Yes Assessment/Plan This physician counseled the patient regarding the tenets of alcoholics anonymous. In particular progress not perfection. The patient was encouraged to return to AA meetings and obtain a sponsor. She is not feeling desperate or suicidal at this time. Therefore she does not meet Rojas act criteria and she is not a candidate for inpatient psychiatric hospitalization. Orders Complete Blood Count With Diff (08/10/16 15:19) Comprehensive Metabolic Panel (08/10/16 15:19) Urinalysis - C+S If Indicated (08/10/16 15:19) Ed Urine Pregnancytest Poc (08/10/16 15:19) Psych Screen (08/10/16 15:19) Drug Screen, Random Urine (08/10/16 15:19) Alcohol (Ethanol) (08/10/16 15:19) Chlordiazepoxide (Librium) (08/10/16 15:30) Lorazepam (Ativan) (08/10/16 15:30) Diphenhydramine Inj (Benadryl Inj) (08/10/16 15:45) Lorazepam Inj (Ativan Inj) (08/10/16 16:15) Haloperidol Inj (Haldol Inj) (08/10/16 16:15) Restraints Violent (08/10/16 16:27) Sodium Chlor 0.9% 1000 Ml Inj (Ns 1000 M (08/10/16 16:45) Diet Regular Basic (08/11/16 Breakfast) Diet Regular Basic (08/11/16 Lunch) Results Vital Signs Date Time Temp Pulse Resp B/P Pulse Ox O2 Delivery O2 Flow Rate FiO2 08/11/16 06:34 96 19 170/82 99 Room Air 08/11/16 02:14 91 18 139/63 95 Room Air 08/10/16 22:20 81 19 152/73 95 Room Air 08/10/16 22:08 71 16 128/68 100 Nasal Cannula 2 08/10/16 19:32 68 16 118/66 100 Nasal Cannula 2 08/10/16 17:45 96 Nasal Cannula 2 08/10/16 17:30 71 18 95/51 93 Nasal Cannula 2 08/10/16 16:30 82 19 112/61 93 08/10/16 15:30 98.4 80 22 135/67 95 Laboratory Tests Test 08/10/16 15:35 White Blood Count 9.7 Red Blood Count 4.54 Hemoglobin 13.6 Hematocrit 41.0 Mean Corpuscular Volume 90.3 Mean Corpuscular Hemoglobin 30.0 Mean Corpuscular Hemoglobin 33.3 Concent Red Cell Distribution Width 13.4 Platelet Count 221 Mean Platelet Volume 7.9 Neutrophils (%) (Auto) 56.7 Lymphocytes (%) (Auto) 34.8 Monocytes (%) (Auto) 5.5 Eosinophils (%) (Auto) 1.4 Basophils (%) (Auto) 1.6 Neutrophils # (Auto) 5.5 Lymphocytes # (Auto) 3.4 Monocytes # (Auto) 0.5 Eosinophils # (Auto) 0.1 Basophils # (Auto) 0.2 CBC Comment DIFF FINAL Differential Comment Urine Color LIGHT-YELLOW Urine Turbidity CLEAR Urine pH 5.0 Urine Specific [place] 1.008 Urine Protein NEG Urine Glucose (UA) NEG Urine Ketones NEG Urine Occult Blood LARGE Urine Nitrite NEG Urine Bilirubin NEG Urine Urobilinogen LESS THAN 2.0 Urine Leukocyte Esterase NEG Urine RBC 8 Urine WBC 2 Urine Squamous Epithelial 2 Cells Urine Bacteria RARE Urine Mucus FEW Microscopic Urinalysis Comment CULT NOT INDICATED Sodium Level 146 Potassium Level 4.2 Chloride Level 114 Carbon Dioxide Level 22.1 Anion Gap 10 Blood Urea Nitrogen 10 Creatinine 0.67 Estimat Glomerular Filtration 93 Rate Random Glucose 71 Calcium Level 8.8 Total Bilirubin 0.3 Aspartate Amino Transf 31 (AST/SGOT) Alanine Aminotransferase 28 (ALT/SGPT) Alkaline Phosphatase 42 Total Protein 7.0 Albumin 3.5 Urine Opiates Screen NEG Urine Barbiturates Screen NEG Urine Amphetamines Screen NEG Urine Benzodiazepines Screen NEG Urine Cocaine Screen NEG Urine Cannabinoids Screen NEG Ethyl Alcohol Level 299 Diagnosis Primary Impression: Alcohol abuse Prescriptions No Active Prescriptions or Reported Meds Condition: Stable Freddy Funes MD Aug 11, 2016 11:30
[2016-08-11] MEDS ORDERED: CLON0.5T PO (16:11)
== END 2016-08-11 12:32 | disposition home or self-care (01) ==
LOC: NEPE 15:04 → NEPJ 08-11 12:32
DX: F10.24 Alcohol dependence with alcohol-induced mood disorder (principal); R45.851 Suicidal ideations; F10.10 Alcohol abuse, uncomplicated; Z87.891 Personal history of nicotine dependence
CPT/HCPCS: 80053; 80307; 81001; 84703; 85025; 96372; 96374; 99284; J1200; J1630; J2060

== ENCOUNTER 2016-08-11 15:52 | Observation (INO) | payer MEDICAID, OTHER ==
[~2016-08-11] VITALS: Ht 160 cm; Wt 55.0 kg
[2016-08-11 15:58] VITALS: BP 116/65; PULSE 71; RESP 18; TEMP 98.1; O2SAT 98
[2016-08-11] MEDS ORDERED: SODIUM CHLOR 0.9% 1000 ML INJ 1,000 ML IV SCH ×2 (16:05→18:19)
[2016-08-11 16:07] VITALS: RESP 18; O2SAT 99
[2016-08-11] MEDS ORDERED: CLON0.5T PO (16:11)
[2016-08-11] MEDS ORDERED: THIAMINE INJ 100 MG in SODIUM CHLORIDE 0.9% INJ 100 ML IV ONE (16:15)
[2016-08-11] MEDS ORDERED: ONDANSETRON HCL 4 MG/2 ML VIAL IV PUSH ONE (16:15)
--- NOTE | 2016-08-11 16:26 | PD ---
HPI Chief Complaint: Alcohol/Drug Intoxication Time Seen by Provider: 16:21 Travel History International Travel<30 days: No Contact w/Intl Traveler<30days: No Traveled to known affect area: No History of Present Illness HPI 51-year-old female that presents to the ED for evaluation of overdose. Patient states that about 3 hours ago she took about 20 of her clonazepam 0.5 mg pills as well as "bunch of "marijuana as well as two pints of Vodka In an attempt to not wait Anymore. Patient was actually just seen here yesterday and was released yesterday. Patient reports that she did this in attempt to kill herself. On my examination patient is somnolent but arousable. She answers questions of properly. Her main complaint is that she feels thirsty and she feels nauseous. She states that she also has a slight headache. Apparently daughter is the one who found her and called the police. Police [place] acted her and brought her here for evaluation via ambulance. She denies any falls. No other drug abuse. Per patient she takes a clonazepam prescribed to her for anxiety. Patient states that she is depressed secondary to her recent relapse and alcoholism. She has an allergy to sulfa. She denies any other medical prongs at this time. PFSH Past Medical History Cancer: No Cardiovascular Problems: No Diabetes: No Diminished Hearing: No Headaches: No Kidney Stones: Yes Psychiatric: No Immunizations Current: Yes Seizures: No ?: Not Menopausal: Yes : 3 Para: 2 Miscarriage: 1 : 0 Tubal Ligation: Yes Past Surgical History Section: Yes Social History Alcohol Use: Yes (binge) Tobacco Use: Yes Substance Use: Yes Allergies-Medications (Allergen,Severity, Reaction): Coded Allergies: Sulfa (Verified Allergy, Intermediate, Hives, 08/11/16) Reported Meds & Prescriptions Reported Meds & Active Scripts Active Reported Clonazepam 0.5 Mg Tab 0.5 Mg PO BID Review of Systems Except as stated in HPI: all other systems reviewed are Neg Physical Exam Narrative GENERAL: SKIN: Warm and dry. HEAD: Atraumatic. Normocephalic. EYES: Pupils equal and round. No scleral icterus. No injection or drainage. ENT: No nasal bleeding or discharge. Mucous membranes pink and moist. Tongue is midline. No uvula deviation. NECK: Trachea midline. No JVD. CARDIOVASCULAR: Regular rate and rhythm. No murmurs, S3, S4. RESPIRATORY: No accessory muscle use. Clear to auscultation. Breath sounds equal bilaterally. GASTROINTESTINAL: Abdomen soft, non-tender, nondistended. Hepatic and splenic margins not palpable. MUSCULOSKELETAL: Extremities without clubbing, cyanosis, or edema. No obvious deformities. Full range of motion of the upper and lower extremities bilaterally. 2+ pulses bilaterally. NEUROLOGICAL: Awake and alert. No obvious cranial nerve deficits. Motor grossly within normal limits. Five out of 5 muscle strength in the arms and legs. Normal speech. PSYCHIATRIC: Intoxicated mood and affect; insight and judgment questionable secondary to suicidal ideation Data Data Last Documented VS Vital Signs Date Time Temp Pulse Resp B/P Pulse Ox O2 Delivery O2 Flow Rate FiO2 08/11/16 17:20 76 17 99 Room Air 08/11/16 17:19 121/70 08/11/16 15:58 98.1 Orders Electrocardiogram (08/11/16 16:05) Complete Blood Count With Diff (08/11/16 16:05) Comprehensive Metabolic Panel (08/11/16 16:05) Prothrombin Time / Inr (Pt) (08/11/16 16:05) Act Partial Throm Time (Ptt) (08/11/16 16:05) Magnesium (Mg) (08/11/16 16:05) Iv Access Insert/Monitor (08/11/16 16:05) Ecg Monitoring (08/11/16 16:05) Oximetry (08/11/16 16:05) Drug Screen, Random Urine (08/11/16 16:05) Alcohol (Ethanol) (08/11/16 16:05) Salicylates (Aspirin) (08/11/16 16:05) Tylenol (Acetaminophen) (08/11/16 16:05) Call Poison Control (08/11/16 16:05) Sodium Chlor 0.9% 1000 Ml Inj (Ns 1000 M (08/11/16 16:05) Thiamine Inj (Thiamine Inj) (08/11/16 16:15) Ondansetron Inj (Zofran Inj) (08/11/16 16:15) ^ Sitter (08/11/16 16:48) Haloperidol Inj (Haldol Inj) (08/11/16 17:45) Restraints Non-Violent NILA.Q3H (08/11/16 17:37) Labs Laboratory Tests Test 08/11/16 08/11/16 16:10 16:40 White Blood Count 6.8 TH/MM3 Red Blood Count 4.37 MIL/MM3 Hemoglobin 13.3 GM/DL Hematocrit 39.3 % Mean Corpuscular Volume 89.9 FL Mean Corpuscular Hemoglobin 30.4 PG Mean Corpuscular Hemoglobin 33.8 % Concent Red Cell Distribution Width 13.5 % Platelet Count 208 TH/MM3 Mean Platelet Volume 8.7 FL Neutrophils (%) (Auto) 57.8 % Lymphocytes (%) (Auto) 30.8 % Monocytes (%) (Auto) 8.5 % Eosinophils (%) (Auto) 1.7 % Basophils (%) (Auto) 1.2 % Neutrophils # (Auto) 3.9 TH/MM3 Lymphocytes # (Auto) 2.1 TH/MM3 Monocytes # (Auto) 0.6 TH/MM3 Eosinophils # (Auto) 0.1 TH/MM3 Basophils # (Auto) 0.1 TH/MM3 CBC Comment DIFF FINAL Differential Comment Prothrombin Time 10.0 SEC Prothromb Time International 0.9 RATIO Ratio Activated Partial 27.7 SEC Thromboplast Time Sodium Level 143 MEQ/L Potassium Level 3.8 MEQ/L Chloride Level 109 MEQ/L Carbon Dioxide Level 27.5 MEQ/L Anion Gap 7 MEQ/L Blood Urea Nitrogen 13 MG/DL Creatinine 0.59 MG/DL Estimat Glomerular Filtration 107 ML/MIN Rate Random Glucose 60 MG/DL Calcium Level 8.9 MG/DL Magnesium Level 2.2 MG/DL Total Bilirubin 0.4 MG/DL Aspartate Amino Transf 44 U/L (AST/SGOT) Alanine Aminotransferase 30 U/L (ALT/SGPT) Alkaline Phosphatase 42 U/L Total Protein 6.4 GM/DL Albumin 3.3 GM/DL Salicylates Level 3.2 MG/DL Acetaminophen Level LESS THAN 2.0 MCG/ML Ethyl Alcohol Level 196 MG/DL Urine Opiates Screen NEG Urine Barbiturates Screen NEG Urine Amphetamines Screen NEG Urine Benzodiazepines Screen POS Urine Cocaine Screen NEG Urine Cannabinoids Screen NEG MDM Medical Decision Making Medical Screen Exam Complete: Yes Emergency Medical Condition: Yes Medical Record Reviewed: Yes Interpretation(s) CBC & BMP Diagram 08/11/16 16:10 LFTS WNL tox positive for benzos and alcohol Differential Diagnosis Depression versus suicidal ideation versus anxiety versus adjustment disorder versus mood disorder versus bipolar disorder versus schizophrenia versus paranoid disorder versus psychosis versus substance abuse versus alcohol abuse versus alcohol induced psychosis versus homicidality addition versus cutting versus personality disorder versus overdose versus suicidal ideation Narrative Course 51-year-old female that presents to the ED for evaluation of psychiatric evaluation and overdose. Patient was properly examined and was found to have signs and symptoms consistent appears to be overdose on benzos and alcohol. Labs were ordered. Patient was started on IV fluids and timing. ED nurse will contact poison control. Poison control recommends observation for the next 6-8 hours. Repeat of labs. This was discussed in my attending who agrees with plan. Patient initially was very somnolent and tired but she has progressively gotten more awake. She is somewhat agitated and she had to be restrained as she continued to pull up her IV and becoming somewhat agitated. Patient was given 5 mg of Haldol IM. I spoke with my attending and regards to patient and she recommends admission to medicine as patient will require 6 hours to 8 hours of observation before she can be medically clear. Case was discussed with Dr. Freed over the phone who agrees to admission. Diagnosis Primary Impression: Benzodiazepine overdose Qualified Code: T42.4X2A - Benzodiazepine overdose, intentional self-harm, initial encounter Additional Impression: Suicidal behavior with attempted self-injury Admitting Information Admitting Physician Requests: Observation Amish Troncoso Aug 11, 2016 16:26
[2016-08-11 16:43] LABS: AUTOMATED NEUTROPHIL # 3.9 TH/MM3 (1.8-7.7); BASOPHIL # 0.1 TH/MM3 (0-0.2); BASOPHIL % 1.2 % (0.0-2.0); EOSINOPHIL # 0.1 TH/MM3 (0-0.4); EOSINOPHIL % 1.7 % (0.0-4.0); HEMATOCRIT 39.3 % (35.0-46.0); HEMO FLAGS DIFF FINAL; LYMPH % 30.8 % (9.0-44.0); LYMPHOCYTE # 2.1 TH/MM3 (1.0-4.8); MEAN CELL VOLUME 89.9 FL (80.0-100.0); MEAN CORPUSCULAR HEMOGLOBIN 30.4 PG (27.0-34.0); MEAN CORPUSCULAR HGB CONC 33.8 % (32.0-36.0); MONO % 8.5 % (0.0-8.0); NEUT % 57.8 % (16.0-70.0); PLATELET COUNT 208 TH/MM3 (150-450); RED BLOOD COUNT 4.37 MIL/MM3 (4.00-5.30); RED CELL DISTRIBUTION WIDTH 13.5 % (11.6-17.2); WHITE BLOOD COUNT 6.8 TH/MM3 (4.0-11.0)
[2016-08-11 17:07] LABS: ACETAMINOPHEN LESS THAN 2.0 MCG/ML (10.0-30.0); ALKALINE PHOSPHATASE 42 U/L (45-117); TOTAL BILIRUBIN ADULT 0.4 MG/DL (0.2-1.0)
[2016-08-11 17:13] LABS: ALT (GPT) 30 U/L (10-53); ANION GAP 7 MEQ/L (5-15); AST (GOT) 44 U/L (15-37); BICARBONATE 27.5 MEQ/L (21.0-32.0); BLOOD UREA NITROGEN 13 MG/DL (7-18); CHLORIDE 109 MEQ/L (98-107); GLOMERULAR FILTRATION RATE 107 ML/MIN (>89); MAGNESIUM 2.2 MG/DL (1.5-2.5); POTASSIUM 3.8 MEQ/L (3.5-5.1); SODIUM (NA) 143 MEQ/L (136-145)
[2016-08-11 17:18] LABS: APTT (PATIENT) 27.7 SEC (24.3-30.1); INTERNATIONAL NORMALIZED RATIO 0.9 RATIO
[2016-08-11 17:19] VITALS: BP 121/70; PULSE 78; RESP 18; O2SAT 99
[2016-08-11] MEDS ORDERED: HALOPERIDOL LACTATE 5 MG/ML AMP IM ONE (17:45)
[2016-08-11 17:58] LABS: AMPHETAMINE, URINE NEG (NEG); BARBITURATES, URINE NEG (NEG); COCAINE, URINE NEG (NEG)
--- NOTE | 2016-08-11 18:19 | HHI.HP ---
[facility] Unknown Admission Diagnosis benzo overdose, alcohol abuse, suicidal ideation Diagnoses: Chief Complaint: Drug Overdose Travel History International Travel<30 Days: No Contact w/Intl Traveler <30 Da: No Traveled to Known Affected Are: No History of Present Illness 51-year-old female that presents to the ED for evaluation of overdose. Patient states that about 3 hours ago she took about 20 of her clonazepam 0.5 mg pills as well as "bunch of "marijuana as well as two pints of Vodka In an attempt to not wait Anymore. Patient was actually just seen here yesterday and was released yesterday. Patient reports that she did this in attempt to kill herself. On my examination patient is somnolent but arousable. She answers questions of properly. Her main complaint is that she feels thirsty and she feels nauseous. She states that she also has a slight headache. Apparently daughter is the one who found her and called the police. Police [place] acted her and brought her here for evaluation via ambulance. She denies any falls. No other drug abuse. Per patient she takes a clonazepam prescribed to her for anxiety. Patient states that she is depressed secondary to her recent relapse and alcoholism. She has an allergy to sulfa. She denies any other medical prongs at this time. Seen in Emergency room, no complaint at this time. she is alert and oriented able to Eat will start General diet. Past Family Social History Past Medical History Kidney Stones Past Surgical History C Section Reported Medications Reported Meds & Active Scripts Active Reported Clonazepam 0.5 Mg Tab 0.5 Mg PO BID Allergies: Coded Allergies: Sulfa (Verified Allergy, Intermediate, Hives, 08/11/16) Active Ordered Medications Current Medications Medications (Trade) Dose Ordered Sig/Guillaume Route Start Time Stop Time Status Last Admin (NS 1000 ml Inj) 1,000 ml @ 100 mls/hr Q10H IV 08/11/16 18:19 (NS Flush) 2 ml UNSCH PRN IV FLUSH 08/11/16 18:30 (NS Flush) 2 ml BID IV FLUSH 08/11/16 21:00 (Tylenol) 650 mg Q4H PRN PO 08/11/16 18:30 (Zofran Inj) 4 mg Q6H PRN IVP 08/11/16 18:30 (Dulcolax Supp) 10 mg DAILY PRN RECTAL 08/11/16 18:30 (Lovenox Inj) 40 mg Q24H SQ 08/11/16 20:00 (Narcan Inj) 0.4 mg UNSCH PRN IV 08/11/16 18:30 (Protonix Inj) 40 mg Q24H IV PUSH 08/11/16 20:00 Family History Asked and denied by patient Social History Tobacco dependence, Drug abuse and Alcohol abuse. Physical Exam Vital Signs Vital Signs Date Time Temp Pulse Resp B/P Pulse Ox O2 Delivery O2 Flow Rate FiO2 08/11/16 17:20 76 17 99 Room Air 08/11/16 17:19 78 18 121/70 99 Room Air 08/11/16 16:07 18 99 Room Air 08/11/16 15:58 98.1 71 18 116/65 98 Physical Exam GENERAL: Well developed, alert and oriented x 3. SKIN: Warm and dry. HEAD: Atraumatic. Normocephalic. EYES: Pupils equal and round. No scleral icterus. No injection or drainage. ENT: No nasal bleeding or discharge. Mucous membranes pink and moist. Tongue is midline. No uvula deviation. NECK: Trachea midline. No JVD. CARDIOVASCULAR: Regular rate and rhythm. No murmurs, S3, S4. RESPIRATORY: No accessory muscle use. Clear to auscultation. Breath sounds equal bilaterally. GASTROINTESTINAL: Abdomen soft, non-tender, nondistended. Hepatic and splenic margins not palpable. MUSCULOSKELETAL: Extremities without clubbing, cyanosis, or edema. No obvious deformities. Full range of motion of the upper and lower extremities bilaterally. 2+ pulses bilaterally. NEUROLOGICAL: Awake and alert. No obvious cranial nerve deficits. Motor grossly within normal limits. Five out of 5 muscle strength in the arms and legs. Normal speech. PSYCHIATRIC: Intoxicated mood and affect; insight and judgment questionable secondary to suicidal ideation Laboratory Laboratory Tests Test 08/11/16 08/11/16 16:10 16:40 White Blood Count 6.8 Red Blood Count 4.37 Hemoglobin 13.3 Hematocrit 39.3 Mean Corpuscular Volume 89.9 Mean Corpuscular Hemoglobin 30.4 Mean Corpuscular Hemoglobin 33.8 Concent Red Cell Distribution Width 13.5 Platelet Count 208 Mean Platelet Volume 8.7 Neutrophils (%) (Auto) 57.8 Lymphocytes (%) (Auto) 30.8 Monocytes (%) (Auto) 8.5 Eosinophils (%) (Auto) 1.7 Basophils (%) (Auto) 1.2 Neutrophils # (Auto) 3.9 Lymphocytes # (Auto) 2.1 Monocytes # (Auto) 0.6 Eosinophils # (Auto) 0.1 Basophils # (Auto) 0.1 CBC Comment DIFF FINAL Differential Comment Prothrombin Time 10.0 Prothromb Time International 0.9 Ratio Activated Partial 27.7 Thromboplast Time Sodium Level 143 Potassium Level 3.8 Chloride Level 109 Carbon Dioxide Level 27.5 Anion Gap 7 Blood Urea Nitrogen 13 Creatinine 0.59 Estimat Glomerular Filtration 107 Rate Random Glucose 60 Calcium Level 8.9 Magnesium Level 2.2 Total Bilirubin 0.4 Aspartate Amino Transf 44 (AST/SGOT) Alanine Aminotransferase 30 (ALT/SGPT) Alkaline Phosphatase 42 Total Protein 6.4 Albumin 3.3 Salicylates Level 3.2 Acetaminophen Level LESS THAN 2.0 Ethyl Alcohol Level 196 Urine Opiates Screen NEG Urine Barbiturates Screen NEG Urine Amphetamines Screen NEG Urine Benzodiazepines Screen POS Urine Cocaine Screen NEG Urine Cannabinoids Screen NEG Result Diagram: 08/11/16 1610 08/11/16 1610 Imaging No Imaging studies performed. Assessment and Plan Assessment and Plan 1. Intentional Drug Overdose/Suicide attempt, positive Toxicology screen for Benzodiazepine and alcohol, Poison control recommended admission, continue [place] act and transfer to psych unit tomorrow. continue IV fluids and gastric protection. Suicidal Behavior. continue CIWA protocol, Thiamine, Multivitamins, Folic Acid. Electrolyte replacement as needed. continue Cardiac monitoring. Discussed with ASTER [place]. DVT prophylaxis with Lovenox GI prophylaxis with Protonix Psychiatric consult. Code Status Full Code Discussed Condition With Patient and Ángel Ross MD Aug 11, 2016 18:19
[2016-08-11 18:24] VITALS: BP 142/63; PULSE 76; RESP 16; TEMP 97.8; O2SAT 98
[2016-08-11] MEDS ORDERED: NALOXONE HCL 0.4 MG/ML AMP IV PRN (18:30)
[2016-08-11] MEDS ORDERED: SODIUM CHLORIDE 0.9% FLUSH 10 ML FLUSH IV FLUSH PRN (18:30)
[2016-08-11] MEDS ORDERED: ACETAMINOPHEN 325 MG TAB PO PRN (18:30)
[2016-08-11] MEDS ORDERED: ONDANSETRON HCL 4 MG/2 ML VIAL IVP PRN (18:30)
[2016-08-11] MEDS ORDERED: BISACODYL 10 MG SUPP RECTAL PRN (18:30)
[2016-08-11] MEDS ORDERED: LORazepam 2 MG/ML VIAL IV PUSH PRN (19:00)
[2016-08-11] MEDS ORDERED: ENOXAPARIN SODIUM 40 MG/0.4 ML SYRINGE SQ SCH (20:00)
[2016-08-11] MEDS ORDERED: PANTOPRAZOLE SODIUM 40 MG VIAL IV PUSH SCH (20:00)
[2016-08-11 20:22] VITALS: BP 133/73; PULSE 78; RESP 18; TEMP 98.7; O2SAT 98
[2016-08-11 20:36] LABS: CREATINE KINASE 954 U/L (26-192)
[2016-08-11] MEDS ORDERED: MULTIVITAMIN INJ 10 ML, FOLIC ACID INJ 1 MG in SODIUM CHLORID 0.9% 500 ML INJ 500 ML IV SCH (21:00)
[2016-08-11] MEDS: SODIUM CHLORIDE 0.9% FLUSH 10 ML FLUSH IV FLUSH SCH (21:00)
[2016-08-11] MEDS ORDERED: THIAMINE INJ 100 MG in SODIUM CHLORIDE 0.9% INJ 100 ML IV SCH (21:00)
[2016-08-11 22:07] LABS: CKMB 2.6 NG/ML (0.5-3.6)
[2016-08-11 23:41] VITALS: BP 101/50; PULSE 74; RESP 18; TEMP 98.4; O2SAT 95
[2016-08-12 00:14] VITALS: PULSE 68
[2016-08-12 00:40] LABS: ALT (GPT) 28 U/L (10-53); ANION GAP 5 MEQ/L (5-15); AST (GOT) 47 U/L (15-37); BICARBONATE 28.7 MEQ/L (21.0-32.0); BLOOD UREA NITROGEN 10 MG/DL (7-18); CHLORIDE 110 MEQ/L (98-107); GLOMERULAR FILTRATION RATE 119 ML/MIN (>89); SODIUM (NA) 144 MEQ/L (136-145)
[2016-08-12 00:54] LABS: ALKALINE PHOSPHATASE 35 U/L (45-117); CREATINE KINASE 1021 U/L (26-192); TOTAL BILIRUBIN ADULT 0.4 MG/DL (0.2-1.0)
[2016-08-12 01:06] LABS: CKMB 6.3 NG/ML (0.5-3.6)
[2016-08-12 04:49] VITALS: BP 110/53; PULSE 77; RESP 18; TEMP 98.8; O2SAT 94
[2016-08-12 05:25] LABS: BACTERIA, URINE MANY /hpf; BLOOD, URINE LARGE (NEG); GLUCOSE,URINE NEG (NEG); KETONE, URINE TRACE mg/dL (NEG); MUCUS URINE FEW /lpf (OCC); NITRITE,URINE NEG (NEG); PH, URINE 5.5 (5.0-8.5); SQUAMOUS EPITHELIAL CELL URINE 1 /hpf (0-5)
[2016-08-12 05:27] LABS: URINE COLOR LIGHT-RED (YELLW/STRAW)
[2016-08-12 05:29] LABS: COMMENT (UR) CULTURE INDICATED; CULTURE IF INDICATED CULTURE INDICATED
[2016-08-12 07:11] LABS: AUTOMATED NEUTROPHIL # 3.2 TH/MM3 (1.8-7.7); BASOPHIL % 0.9 % (0.0-2.0); EOSINOPHIL # 0.1 TH/MM3 (0-0.4); EOSINOPHIL % 2.1 % (0.0-4.0); HEMATOCRIT 34.9 % (35.0-46.0); HEMO FLAGS DIFF FINAL; LYMPH % 26.5 % (9.0-44.0); LYMPHOCYTE # 1.4 TH/MM3 (1.0-4.8); MEAN CELL VOLUME 90.7 FL (80.0-100.0); MEAN CORPUSCULAR HEMOGLOBIN 30.8 PG (27.0-34.0); MEAN CORPUSCULAR HGB CONC 33.9 % (32.0-36.0); MONO % 7.9 % (0.0-8.0); NEUT % 62.6 % (16.0-70.0); PLATELET COUNT 163 TH/MM3 (150-450); RED BLOOD COUNT 3.85 MIL/MM3 (4.00-5.30); RED CELL DISTRIBUTION WIDTH 13.6 % (11.6-17.2); WHITE BLOOD COUNT 5.1 TH/MM3 (4.0-11.0)
[2016-08-12 07:13] LABS: PROTHROMBIN TIME - PATIENT 10.7 SEC (9.8-11.6)
--- NOTE | 2016-08-12 07:44 | HHI.PR ---
Subjective Remarks 51-year-old female that presents to the ED for evaluation of overdose. Patient states that about 3 hours ago she took about 20 of her clonazepam 0.5 mg pills as well as "bunch of "marijuana as well as two pints of Vodka In an attempt to not wait Anymore. Patient was actually just seen here yesterday and was released yesterday. Patient reports that she did this in attempt to kill herself. On my examination patient is somnolent but arousable. She answers questions of properly. Her main complaint is that she feels thirsty and she feels nauseous. She states that she also has a slight headache. Apparently daughter is the one who found her and called the police. Police Crystal acted her and brought her here for evaluation via ambulance. She denies any falls. No other drug abuse. Per patient she takes a clonazepam prescribed to her for anxiety. Patient states that she is depressed secondary to her recent relapse and alcoholism. She has an allergy to sulfa. She denies any other medical prongs at this time. Seen in Emergency room, no complaint at this time. she is alert and oriented able to Eat will start General diet. 08/12: Seen in her room in the presence of Sitter, discussed with nurse Miss Yanez, seen by Psychiatry specialist Doctor Zacarias Danielson, With Diagnosis of Alcohol dependence with alcohol induced mood disorder , previous hospitalizations, she was hospitalized here at [place] in May 2016 under the care of Dr. Acuna, documentation reviewed , she is on Zoloft 100 mg and BuSpar 20 mg 3 times a day, on and off compliance, prescribed by PCP, she was Rojas acted and released from the ER yesterday by Dr. Funes, the documentation also reviewed, no significant medical history, who presents to the ED for evaluation of overdose with alcohol and benzodiazepines. On initial evaluation Patient stated that about 3 hours ago she took about 20 of her clonazepam 0.5 mg pills as well as "bunch of "marijuana as well as two pints of Vodka In an attempt to not wait Anymore. Patient reports that she did this in attempt to kill herself. She was consulted to psychiatry to assess SI and depression. On psychiatric evaluation patient is irritable, oppositional resistant, partially cooperative, no provided a lot of significant information for the psychiatric assessment, but endorses suicidal intention in her recent overdose with Klonopin and alcohol and continues to report SI, hopelessness, helplessness, sad mood, poor sleep at night, generalized pessimism. Collateral information could not be obtained at this moment. Patient seems to be very vulnerable, fragile and unpredictable at this moment. This is her second ER visit under Crystal damian in a week due to suicidal attempt and suicidal ideation. It is highly probable that suicidal behavior and mood symptoms are directly related with alcoholism and benzodiazepines abuse, but at this moment patient represents an elevator risk for suicidality and further collateral information, creation of a safe discharge plan a more longitudinal observation of mood and behavior is needed. Patient meet criteria for involuntary psychiatric admission for stabilization and safety. Will restart Zoloft at 50 mg and BuSpar 10 mg [address] patient is [facility] protocol for withdrawal of benzodiazepines/alcohol. Extensive support, motivation and psychoeducation provided. Patient can be transferred to psychiatry once medically clear. Objective Vital Signs Date Time Temp Pulse Resp B/P Pulse Ox O2 Delivery O2 Flow Rate FiO2 08/12/16 04:49 98.8 77 18 110/53 94 08/12/16 00:14 68 08/11/16 23:41 98.4 74 18 101/50 95 08/11/16 20:22 98.7 78 18 133/73 98 08/11/16 18:24 97.8 76 16 142/63 98 Room Air 08/11/16 17:20 76 17 99 Room Air 08/11/16 17:19 78 18 121/70 99 Room Air 08/11/16 16:07 18 99 Room Air 08/11/16 15:58 98.1 71 18 116/65 98 Result Diagram: 08/11/16 1610 08/12/16 0007 Imaging No Imaging studies performed. Procedures No procedures performed Other Results Laboratory Tests Test 08/11/16 08/11/16 08/12/16 08/12/16 16:10 16:40 00:07 04:50 White Blood Count 6.8 TH/MM3 Red Blood Count 4.37 MIL/MM3 Hemoglobin 13.3 GM/DL Hematocrit 39.3 % Mean Corpuscular Volume 89.9 FL Mean Corpuscular Hemoglobin 30.4 PG Mean Corpuscular Hemoglobin 33.8 % Concent Red Cell Distribution Width 13.5 % Platelet Count 208 TH/MM3 Mean Platelet Volume 8.7 FL Neutrophils (%) (Auto) 57.8 % Lymphocytes (%) (Auto) 30.8 % Monocytes (%) (Auto) 8.5 % Eosinophils (%) (Auto) 1.7 % Basophils (%) (Auto) 1.2 % Neutrophils # (Auto) 3.9 TH/MM3 Lymphocytes # (Auto) 2.1 TH/MM3 Monocytes # (Auto) 0.6 TH/MM3 Eosinophils # (Auto) 0.1 TH/MM3 Basophils # (Auto) 0.1 TH/MM3 CBC Comment DIFF FINAL Differential Comment Prothrombin Time 10.0 SEC Prothromb Time International 0.9 RATIO Ratio Activated Partial 27.7 SEC Thromboplast Time Magnesium Level 2.2 MG/DL Salicylates Level 3.2 MG/DL Acetaminophen Level LESS THAN 2.0 MCG/ML Ethyl Alcohol Level 196 MG/DL Urine Opiates Screen NEG Urine Barbiturates Screen NEG Urine Amphetamines Screen NEG Urine Benzodiazepines Screen POS Urine Cocaine Screen NEG Urine Cannabinoids Screen NEG Sodium Level 144 MEQ/L Potassium Level 4.0 MEQ/L Chloride Level 110 MEQ/L Carbon Dioxide Level 28.7 MEQ/L Anion Gap 5 MEQ/L Blood Urea Nitrogen 10 MG/DL Creatinine 0.54 MG/DL Estimat Glomerular Filtration 119 ML/MIN Rate Random Glucose 91 MG/DL Calcium Level 8.7 MG/DL Total Bilirubin 0.4 MG/DL Aspartate Amino Transf 47 U/L (AST/SGOT) Alanine Aminotransferase 28 U/L (ALT/SGPT) Alkaline Phosphatase 35 U/L Total Creatine Kinase 1021 U/L Creatine Kinase MB 6.3 NG/ML Creatine Kinase MB % 0.6 % Troponin I LESS THAN 0.02 NG/ML Total Protein 5.5 GM/DL Albumin 3.0 GM/DL Urine Color LIGHT-RED Urine Turbidity HAZY Urine pH 5.5 Urine Specific Jackson 1.018 Urine Protein 30 mg/dL Urine Glucose (UA) NEG mg/dL Urine Ketones TRACE mg/dL Urine Occult Blood LARGE Urine Nitrite NEG Urine Bilirubin NEG Urine Urobilinogen LESS THAN 2.0 MG/DL Urine Leukocyte Esterase TRACE Urine RBC /hpf Urine WBC 33 /hpf Urine Squamous Epithelial 1 /hpf Cells Urine Amorphous Sediment RARE Urine Bacteria MANY /hpf Urine Mucus FEW /lpf Microscopic Urinalysis Comment CULTURE INDICATED Objective Remarks GENERAL: Well developed, alert and oriented x 3. SKIN: Warm and dry. HEAD: Atraumatic. Normocephalic. EYES: Pupils equal and round. No scleral icterus. No injection or drainage. ENT: No nasal bleeding or discharge. Mucous membranes pink and moist. Tongue is midline. No uvula deviation. NECK: Trachea midline. No JVD. CARDIOVASCULAR: Regular rate and rhythm. No murmurs, S3, S4. RESPIRATORY: No accessory muscle use. Clear to auscultation. Breath sounds equal bilaterally. GASTROINTESTINAL: Abdomen soft, non-tender, nondistended. Hepatic and splenic margins not palpable. MUSCULOSKELETAL: Extremities without clubbing, cyanosis, or edema. No obvious deformities. Full range of motion of the upper and lower extremities bilaterally. 2+ pulses bilaterally. NEUROLOGICAL: Awake and alert. No obvious cranial nerve deficits. Motor grossly within normal limits. Five out of 5 muscle strength in the arms and legs. Normal speech. PSYCHIATRIC: Intoxicated mood and affect; insight and judgment questionable secondary to suicidal ideation Laboratory Medications and IVs Current Medications Medications (Trade) Dose Ordered Sig/Guillaume Route Start Time Stop Time Status Last Admin (NS 1000 ml Inj) 1,000 ml @ 100 mls/hr Q10H IV 08/11/16 18:19 08/11/16 19:07 (NS Flush) 2 ml UNSCH PRN IV FLUSH 08/11/16 18:30 (NS Flush) 2 ml BID IV FLUSH 08/11/16 21:00 (Tylenol) 650 mg Q4H PRN PO 08/11/16 18:30 (Zofran Inj) 4 mg Q6H PRN IVP 08/11/16 18:30 (Dulcolax Supp) 10 mg DAILY PRN RECTAL 08/11/16 18:30 (Lovenox Inj) 40 mg Q24H SQ 08/11/16 20:00 08/11/16 22:08 (Narcan Inj) 0.4 mg UNSCH PRN IV 08/11/16 18:30 Pantoprazole Sodium 40 mg 40 mg Q24H IV PUSH 08/11/16 20:00 08/11/16 22:08 Multivitamins 10 ml/Folic Acid 1 mg/Sodium Chloride 510.2 ml @ 125 mls/hr Q24H IV 08/11/16 21:00 08/16/16 20:59 08/11/16 22:08 (Thiamine Inj/NS Inj) 101 ml @ 100 mls/hr Q24H IV 08/11/16 21:00 08/14/16 20:59 08/11/16 22:09 (Vitamin B1) 100 mg DAILY PO 08/15/16 09:00 (Ativan Inj) 1 mg Q4H PRN IV PUSH 08/11/16 19:00 A/P Assessment and Plan 1. Intentional Drug Overdose/Suicide attempt, positive Toxicology screen for Benzodiazepine and alcohol, Poison control recommended admission, continue Rojas act and transfer to psych unit tomorrow. continue IV fluids and gastric protection. Suicidal Behavior. continue CIWA protocol, Thiamine, Multivitamins, Folic Acid. Electrolyte replacement as needed. continue Cardiac monitoring. Psychiatry Specialist Notes: Seen in her room in the presence of Sitter, discussed with nurse Miss Yanez, seen by Psychiatry specialist Doctor Zacarias Danielson, With Diagnosis of Alcohol dependence with alcohol induced mood disorder , previous hospitalizations, she was hospitalized here at [place] in May 2016 under the care of Dr. Acuna, documentation reviewed , she is on Zoloft 100 mg and BuSpar 20 mg 3 times a day, on and off compliance, prescribed by PCP, she was Rojas acted and released from the ER yesterday by Dr. Funes, the documentation also reviewed, no significant medical history, who presents to the ED for evaluation of overdose with alcohol and benzodiazepines. On initial evaluation Patient stated that about 3 hours ago she took about 20 of her clonazepam 0.5 mg pills as well as "bunch of "marijuana as well as two pints of Vodka In an attempt to not wait Anymore. Patient reports that she did this in attempt to kill herself. She was consulted to psychiatry to assess SI and depression. On psychiatric evaluation patient is irritable, oppositional resistant, partially cooperative, no provided a lot of significant information for the psychiatric assessment, but endorses suicidal intention in her recent overdose with Klonopin and alcohol and continues to report SI, hopelessness, helplessness, sad mood, poor sleep at night, generalized pessimism. Collateral information could not be obtained at this moment. Patient seems to be very vulnerable, fragile and unpredictable at this moment. This is her second ER visit under Rojas act in a week due to suicidal attempt and suicidal ideation. It is highly probable that suicidal behavior and mood symptoms are directly related with alcoholism and benzodiazepines abuse, but at this moment patient represents an elevator risk for suicidality and further collateral information, creation of a safe discharge plan a more longitudinal observation of mood and behavior is needed. Patient meet criteria for involuntary psychiatric admission for stabilization and safety. Will restart Zoloft at 50 mg and BuSpar 10 mg [address] patient is [facility] protocol for withdrawal of benzodiazepines/alcohol. Extensive support, motivation and psychoeducation provided. Patient can be transferred to psychiatry once medically clear. 2. Rhabdomyolysis increased IV fluids to 150 ml per hour and following. CK trending down, patient took out her IV lines. DVT prophylaxis with Lovenox GI prophylaxis with Protonix Okay to transfer to Psychiatric unit. Code Status Full Code Discharge Planning Transfer to Inpatient Psychiatric unit. Ángel Hernández MD Aug 12, 2016 07:44
[2016-08-12 08:06] VITALS: BP 160/86; PULSE 66; RESP 16; TEMP 98; O2SAT 92
[2016-08-12] MEDS: SODIUM CHLORIDE 0.9% FLUSH 10 ML FLUSH IV FLUSH SCH (09:00)
[2016-08-12 11:17] LABS: CKMB 3.4 NG/ML (0.5-3.6)
[2016-08-12 12:05] VITALS: BP 160/82; PULSE 68; RESP 16; TEMP 98; O2SAT 94
[2016-08-12] MEDS ORDERED: traMADol HCL 50 MG TAB PO PRN (13:00)
--- NOTE | 2016-08-12 14:16 | PD.CONS ---
Provisional Diagnosis Admission Date Aug 11, 2016 at 18:09 [place] I. Major depressive disorder, recurrent, severe without psychosis vs alcohol- induced mood disorder, alcohol and hypnotic-sedative use disorder. [place] II. Deferred [place] III. No significant medical history [place] IV. Public Address Announcer act in a week [place] V. 45 History of Present Illness Service Psychiatry Consult Requested By Primary Care Physician Unknown HPI The patient is a 51-year-old woman, domiciled with her daughter, , employed, with psychiatric history of depression, anxiety, alcohol- induced mood disorder, alcohol and sedative-hypnotics use disorder, previous hospitalizations, she was hospitalized here at [facility] in May under the care of Dr. Acuna, documentation reviewed, she is on Zoloft 100 mg and BuSpar 20 mg 3 times a day, on and off compliance, prescribed by PCP, she was Rojas acted and released from the ER yesterday by Dr. Funes, the documentation also reviewed, no significant medical history, who presents to the ED for evaluation of overdose with alcohol and benzodiazepines. On initial evaluation Patient stated that about 3 hours ago she took about 20 of her clonazepam 0.5 mg pills as well as "bunch of "marijuana as well as two pints of Vodka In an attempt to not wait Anymore. Patient reports that she did this in attempt to kill herself. She was consulted to psychiatry to assess SI and depression. On psychiatric evaluation today patient seems to be clinically sober at this moment , but she is very irritable, kind of oppositional and resistant. Patient says that she is tired of life and been an alcoholic. She says she has tried everything including detox, rehabilitation, AA, antidepressants, psychiatric hospitalizations and nothing seems to work for her. Patient says that she feels like everything is falling apart, she has not been to live for and she feels she is giving up. Patient endorses depressive symptoms, anxiety, anhedonia, hopelessness, helplessness, low energy, insomnia and suicidal ideation without current plan. Patient denies homicidal ideation, she denies visual and auditory hallucinations. She is fully oriented 3, she reports daily use of about 3pints of Vodka and also Clonazepam, "many pills", but denies the use of illicit drugs. Review of Systems Constitutional: DENIES: Diaphoretic episodes, Fatigue, Fever, Weight gain, Weight loss, Chills, Dizziness, Change in appetite, Night Sweats Endocrine: DENIES: Abnorml menstrual pattern, Heat/cold intolerance, Polydipsia , Polyuria, Polyphagia Eyes: DENIES: Blurred vision, Diplopia, Eye inflammation, Eye pain, Vision loss , Photosensitivity, Double Vision Ears, nose, mouth, throat: DENIES: Tinnitus, Hearing loss, Vertigo, Nasal discharge, Oral lesions, Throat pain, Hoarseness, Ear Pain, Running Nose, Epistaxis, Sinus Pain, Toothache, Odynophagia Respiratory: DENIES: Apneas, Cough, Snoring, Wheezing, Hemoptysis, Sputum production, Shortness of breath Cardiovascular: DENIES: Chest pain, Palpitations, Syncope, Dyspnea on Exertion , PND, Lower Extremity Edema, Orthopnea, Claudication Gastrointestinal: DENIES: Abdominal pain, Black stools, Bloody stools, Constipation, Diarrhea, Nausea, Vomiting, Difficulty Swallowing, Anorexia Musculoskeletal: DENIES: Joint pain, Muscle aches, Stiffness, Joint Swelling, Back pain, Neck pain Integumentary: DENIES: Abnormal pigmentation, Pruritus, Rash, Nail changes, Breast masses, Breast skin changes, Nipple discharge Hematologic/lymphatic: DENIES: Bruising, Lymphadenopathy Immunologic/allergic: DENIES: Eczema, Urticaria Neurologic: DENIES: Abnormal gait, Headache, Localized weakness, Paresthesias, Seizures, Speech Problems, Tremor, Poor Balance Psychiatric: DENIES: Anxiety, Confusion, Mood changes, Depression, Hallucinations, Agitation, Suicidal Ideation, Homicidal Ideation, Delusions Past Family Social History Coded Allergies: Sulfa (Verified Allergy, Intermediate, Hives, 08/11/16) Reported Medications Clonazepam 0.5 Mg Tab0.5 Mg PO BID #60 TAB Ref 0 08/11/16 Discontinued Scripts Thiamine (Vitamin B-1)100 Mg [id number] Mg PO DAILY 30 Days Ref 0 Prov:Maurilio Acuna MD 05/21/16 Folic Acid (Folate)1 Mg Tab1 Mg PO DAILY 30 Days Ref 0 Prov:Maurilio Acuna MD 05/21/16 Current Medications Medications (Trade) Dose Ordered Sig/Guillaume Route Start Time Stop Time Status Last Admin (NS 1000 ml Inj) 1,000 ml @ 150 mls/hr Q6H40M IV 08/11/16 18:19 08/11/16 19:07 (NS Flush) 2 ml UNSCH PRN IV FLUSH 08/11/16 18:30 (NS Flush) 2 ml BID IV FLUSH 08/11/16 21:00 (Tylenol) 650 mg Q4H PRN PO 08/11/16 18:30 (Zofran Inj) 4 mg Q6H PRN IVP 08/11/16 18:30 (Dulcolax Supp) 10 mg DAILY PRN RECTAL 08/11/16 18:30 (Lovenox Inj) 40 mg Q24H SQ 08/11/16 20:00 08/11/16 22:08 (Narcan Inj) 0.4 mg UNSCH PRN IV 08/11/16 18:30 Pantoprazole Sodium 40 mg 40 mg Q24H IV PUSH 08/11/16 20:00 08/11/16 22:08 Multivitamins 10 ml/Folic Acid 1 mg/Sodium Chloride 510.2 ml @ 125 mls/hr Q24H IV 08/11/16 21:00 08/16/16 20:59 08/11/16 22:08 (Thiamine Inj/NS Inj) 101 ml @ 100 mls/hr Q24H IV 08/11/16 21:00 08/14/16 20:59 08/11/16 22:09 (Vitamin B1) 100 mg DAILY PO 08/15/16 09:00 (Ativan Inj) 1 mg Q4H PRN IV PUSH 08/11/16 19:00 (Ultram) 50 mg Q6H PRN PO 08/12/16 13:00 08/12/16 12:54 Family History She denies Social History Patient was born and raised in [place], she has been living in [place] since 1977, she is , she lives with her daughter and her daughter's fianc. She is unemployed in a [employer] company, her highest level of education is 2 years college. Patient's Strengths (min. 2) Verbal communication Physical Exam Vital Signs Vital Signs Date Time Temp Pulse Resp B/P Pulse Ox O2 Delivery O2 Flow Rate FiO2 08/12/16 12:05 98.0 68 16 160/82 94 08/11/16 18:24 Room Air Mental Status Examination Appearance woman, age appearing, good hygiene, in [facility], she is oppositional, resistant and irritable Speech: Unremarkable Orientation: x3 Memory: Unremarkable Thought Process: Logical Thought Content: Unremarkable Hallucination Type: None Suicidal Ideation: Yes Previous Suicide Attempts: Yes Homicidal Ideation: No Previous Homicide Attempts: No Judgment: Impulsive Affect: Sad Mood: Sad, Irritable Motor Activity: Normal gait Assessment & Plan Problem List: (1) Alcohol dependence with alcohol-induced mood disorder Assessment & Plan: The patient is a 51-year-old woman with psychiatric history of depression, anxiety, alcohol-induced mood disorder, alcohol and sedative-hypnotics use disorder, previous hospitalizations, she was hospitalized here at [facility] in May 2016 under the care of Dr. Acuna, documentation reviewed, she is on Zoloft 100 mg and BuSpar 20 mg 3 times a day, on and off compliance, prescribed by PCP, she was Rojas acted and released from the ER yesterday by Dr. Funes, the documentation also reviewed, no significant medical history, who presents to the ED for evaluation of overdose with alcohol and benzodiazepines. On initial evaluation Patient stated that about 3 hours ago she took about 20 of her clonazepam 0.5 mg pills as well as "bunch of "marijuana as well as two pints of Vodka In an attempt to not wait Anymore. Patient reports that she did this in attempt to kill herself. She was consulted to psychiatry to assess SI and depression. On psychiatric evaluation patient is irritable, oppositional resistant, partially cooperative, no provided a lot of significant information for the psychiatric assessment, but endorses suicidal intention in her recent overdose with Klonopin and alcohol and continues to report SI, hopelessness, helplessness, sad mood, poor sleep at night, generalized pessimism. Collateral information could not be obtained at this moment. Patient seems to be very vulnerable, fragile and unpredictable at this moment. This is her second ER visit under Crystal damian in a week due to suicidal attempt and suicidal ideation. It is highly probable that suicidal behavior and mood symptoms are directly related with alcoholism and benzodiazepines abuse, but at this moment patient represents an elevator risk for suicidality and further collateral information, creation of a safe discharge plan a more longitudinal observation of mood and behavior is needed. Patient meet criteria for involuntary psychiatric admission for stabilization and safety. Will restart Zoloft at 50 mg and BuSpar 10 mg [address] patient is [facility] protocol for withdrawal of benzodiazepines/alcohol. Extensive support, motivation and psychoeducation provided. Patient can be transferred to psychiatry once medically clear. ICD Code: F10.24 Assessment & Plan Estimated LOS: days Zacarias Danielson MD Aug 12, 2016 14:16
[2016-08-12] MEDS ORDERED: FLUMAZENIL 0.5 MG/5 ML VIAL IV PUSH PRN (15:00)
[2016-08-12] MEDS ORDERED: LORazepam 1 MG TAB PO PRN (15:00)
[2016-08-12] MEDS ORDERED: LORazepam 2 MG/ML VIAL IV PUSH PRN ×4 (15:00)
[2016-08-12] MEDS ORDERED: LORazepam 2 MG TAB PO PRN (15:00)
[2016-08-12] MEDS ORDERED: NICOTINE 21 MG/24 HR PATCH T-DERMAL SCH (15:00)
--- NOTE | 2016-08-12 15:06 | HHI.DS ---
Discharge Summary Admission Date Aug 11, 2016 at 18:09 Discharge Date: Aug 12, 2016 Admitting Diagnosis benzo overdose, alcohol abuse, suicidal ideation (1) Suicidal ideations ICD Code: R45.851 Diagnosis: Principal (2) Suicidal behavior with attempted self-injury ICD Code: T14.91 Diagnosis: Principal (3) Alcohol dependence with alcohol-induced mood disorder ICD Code: F10.24 Diagnosis: Principal Procedures No procedures performed to the patient Brief History - From Admission 51-year-old female that presents to the ED for evaluation of overdose. Patient states that about 3 hours ago she took about 20 of her clonazepam 0.5 mg pills as well as "bunch of "marijuana as well as two pints of Vodka In an attempt to not wait Anymore. Patient was actually just seen here yesterday and was released yesterday. Patient reports that she did this in attempt to kill herself. On my examination patient is somnolent but arousable. She answers questions of properly. Her main complaint is that she feels thirsty and she feels nauseous. She states that she also has a slight headache. Apparently daughter is the one who found her and called the police. Police [place] acted her and brought her here for evaluation via ambulance. She denies any falls. No other drug abuse. Per patient she takes a clonazepam prescribed to her for anxiety. Patient states that she is depressed secondary to her recent relapse and alcoholism. She has an allergy to sulfa. She denies any other medical prongs at this time. Seen in Emergency room, no complaint at this time. she is alert and oriented able to Eat will start General diet. CBC/BMP: 08/12/16 0620 08/12/16 0007 Significant Findings Laboratory Tests Test 08/11/16 08/11/16 08/12/16 08/12/16 16:10 16:40 00:07 04:50 Monocytes (%) (Auto) 8.5 % (0.0-8.0) Chloride Level 109 MEQ/L 110 MEQ/L (98-107) (98-107) Random Glucose 60 MG/DL (74-106) Aspartate Amino Transf 44 U/L (15-37) 47 U/L (15-37) (AST/SGOT) Alkaline Phosphatase 42 U/L (45-117) 35 U/L (45-117) Total Creatine Kinase 954 U/L 1021 U/L (26-192) (26-192) Troponin I LESS THAN 0.02 LESS THAN 0.02 NG/ML NG/ML (0.02-0.05) (0.02-0.05) Albumin 3.3 GM/DL 3.0 GM/DL (3.4-5.0) (3.4-5.0) Acetaminophen Level LESS THAN 2.0 MCG/ML (10.0-30.0) Ethyl Alcohol Level 196 MG/DL (0-5) Urine Benzodiazepines Screen POS (NEG) Creatine Kinase MB 6.3 NG/ML (0.5-3.6) Total Protein 5.5 GM/DL (6.4-8.2) Urine Color LIGHT-RED (YELLW/STRAW) Urine Turbidity HAZY (CLEAR) Urine Protein 30 mg/dL (NEG-TRACE) Urine Ketones TRACE mg/dL (NEG) Urine Occult Blood LARGE (NEG) Urine Leukocyte Esterase TRACE (NEG) Urine WBC 33 /hpf (0-5) Urine Bacteria MANY /hpf (NONE) Urine Mucus FEW /lpf (OCC) Test 08/12/16 08/12/16 06:20 09:55 Red Blood Count 3.85 MIL/MM3 (4.00-5.30) Hematocrit 34.9 % (35.0-46.0) Total Creatine Kinase 781 U/L (26-192) Imaging No Imaging studies performed. PE at Discharge GENERAL: Well developed, alert and oriented x 3. SKIN: Warm and dry. HEAD: Atraumatic. Normocephalic. EYES: Pupils equal and round. No scleral icterus. No injection or drainage. ENT: No nasal bleeding or discharge. Mucous membranes pink and moist. Tongue is midline. No uvula deviation. NECK: Trachea midline. No JVD. CARDIOVASCULAR: Regular rate and rhythm. No murmurs, S3, S4. RESPIRATORY: No accessory muscle use. Clear to auscultation. Breath sounds equal bilaterally. GASTROINTESTINAL: Abdomen soft, non-tender, nondistended. Hepatic and splenic margins not palpable. MUSCULOSKELETAL: Extremities without clubbing, cyanosis, or edema. No obvious deformities. Full range of motion of the upper and lower extremities bilaterally. 2+ pulses bilaterally. NEUROLOGICAL: Awake and alert. No obvious cranial nerve deficits. Motor grossly within normal limits. Five out of 5 muscle strength in the arms and legs. Normal speech. PSYCHIATRIC: Intoxicated mood and affect; insight and judgment questionable secondary to suicidal ideation Hospital Course 51-year-old female that presents to the ED for evaluation of overdose. Patient states that about 3 hours ago she took about 20 of her clonazepam 0.5 mg pills as well as "bunch of "marijuana as well as two pints of Vodka In an attempt to not wait Anymore. Patient was actually just seen here yesterday and was released yesterday. Patient reports that she did this in attempt to kill herself. On my examination patient is somnolent but arousable. She answers questions of properly. Her main complaint is that she feels thirsty and she feels nauseous. She states that she also has a slight headache. Apparently daughter is the one who found her and called the police. Police [place] acted her and brought her here for evaluation via ambulance. She denies any falls. No other drug abuse. Per patient she takes a clonazepam prescribed to her for anxiety. Patient states that she is depressed secondary to her recent relapse and alcoholism. She has an allergy to sulfa. She denies any other medical prongs at this time. Seen in Emergency room, no complaint at this time. she is alert and oriented able to Eat will start General diet. 08/12: Seen in her room in the presence of Sitter, discussed with nurse Miss Yanez, seen by Psychiatry specialist Doctor Zacarias Danielson, With Diagnosis of Alcohol dependence with alcohol induced mood disorder . No Nausea, vomit or diarrhea. Assessment and Plan 1. Intentional Drug Overdose/Suicide attempt, positive Toxicology screen for Benzodiazepine and alcohol, Poison control recommended admission, continue Rojas act and transfer to psych unit tomorrow. continue IV fluids and gastric protection. Suicidal Behavior. continue CIWA protocol, Thiamine, Multivitamins, Folic Acid. Electrolyte replacement as needed. continue Cardiac monitoring. Psychiatry Specialist Notes: Seen in her room in the presence of Sitter, discussed with nurse Miss Yanez, seen by Psychiatry specialist Doctor Zacarias Danielson, With Diagnosis of Alcohol dependence with alcohol induced mood disorder , previous hospitalizations, she was hospitalized here at [facility] in May 2016 under the care of Dr. Acuna, documentation reviewed , she is on Zoloft 100 mg and BuSpar 20 mg 3 times a day, on and off compliance, prescribed by PCP, she was Rojas acted and released from the ER yesterday by Dr. Funes, the documentation also reviewed, no significant medical history, who presents to the ED for evaluation of overdose with alcohol and benzodiazepines. On initial evaluation Patient stated that about 3 hours ago she took about 20 of her clonazepam 0.5 mg pills as well as "bunch of "marijuana as well as two pints of Vodka In an attempt to not wait Anymore. Patient reports that she did this in attempt to kill herself. She was consulted to psychiatry to assess SI and depression. On psychiatric evaluation patient is irritable, oppositional resistant, partially cooperative, no provided a lot of significant information for the psychiatric assessment, but endorses suicidal intention in her recent overdose with Klonopin and alcohol and continues to report SI, hopelessness, helplessness, sad mood, poor sleep at night, generalized pessimism. Collateral information could not be obtained at this moment. Patient seems to be very vulnerable, fragile and unpredictable at this moment. This is her second ER visit under Crystal damian in a week due to suicidal attempt and suicidal ideation. It is highly probable that suicidal behavior and mood symptoms are directly related with alcoholism and benzodiazepines abuse, but at this moment patient represents an elevator risk for suicidality and further collateral information, creation of a safe discharge plan a more longitudinal observation of mood and behavior is needed. Patient meet criteria for involuntary psychiatric admission for stabilization and safety. Will restart Zoloft at 50 mg and BuSpar 10 mg [address] patient is [facility] protocol for withdrawal of benzodiazepines/alcohol. Extensive support, motivation and psychoeducation provided. Patient can be transferred to psychiatry once medically clear. 2. Rhabdomyolysis increased IV fluids to 150 ml per hour and following. CK trending down, patient took out her IV lines. DVT prophylaxis with Lovenox GI prophylaxis with Protonix Okay to transfer to Psychiatric unit. Code Status Full Code Discharge Planning Transfer to Inpatient Psychiatric unit. Pt Condition on Discharge: Fair Discharge Disposition: Disc to Psych Care Fac Discharge Time: <= 30 minutes Discharge Instructions DIET: Follow Instructions for: As Tolerated, No Restrictions Activities you can perform: Regular-No Restrictions Ángel Hernández MD Aug 12, 2016 15:06
--- NOTE | 2016-08-12 17:21 | EKG ---
Date Performed: 08/11/2016 Time Performed: 16:15:27 PTAGE: 51 years EKG: Sinus rhythm NORMAL ECG NO PREVIOUS TRACING DOCTOR: Nikko Santiago Interpretating Date/Time 08/12/2016 17:20:17
[2016-08-13] MEDS ORDERED: REMOVE OLD PATCH T-DERMAL SCH (09:00)
[2016-08-13] MEDS ORDERED: CLON0.1T PO (12:25)
[2016-08-13] MEDS ORDERED: ZOLO100T PO (12:25)
[2016-08-15] MEDS ORDERED: THIAMINE HCL 100 MG TAB PO SCH (09:00)
== END 2016-08-12 16:12 ==
LOC: NEPE 15:52 → NEDA 18:09 → NEPGCP 19:57
PROVIDERS: ADMIT Internal Medicine; ATTEND Internal Medicine
DX: T42.4X2A Poisoning by benzodiazepines, intentional self-harm, initial encounter (principal); F10.24 Alcohol dependence with alcohol-induced mood disorder; F19.10 Other psychoactive substance abuse, uncomplicated; F41.9 Anxiety disorder, unspecified; F33.9 Major depressive disorder, recurrent, unspecified; M62.82 Rhabdomyolysis; F17.200 Nicotine dependence, unspecified, uncomplicated; Y90.6 Blood alcohol level of 120-199 mg/100 ml; Z79.899 Other long term (current) drug therapy; Z88.2 Allergy status to sulfonamides
CPT/HCPCS: 80053; 80307; 81001; 82550; 82552; 82948; 83735; 84484; 85025; 85610; 85730; 87086; 93005; 96361; 96365; 96375; 99285; C9113; G0378; J1630; J1650; J2405; J3411; J7030; J7040

== ENCOUNTER 2016-08-12 15:12 | Inpatient (IN) | payer MEDICAID, OTHER ==
[~2016-08-12] VITALS: Ht 162.6 cm; Wt 57.8 kg
[~2016-08-12 15:12] MED LIST changes: +CLON0.5T PO; -FOLI1TAB4 PO; -VITA100T2 PO
[2016-08-12] MEDS ORDERED: FLUMAZENIL 0.5 MG/5 ML VIAL IV PUSH PRN (17:15)
[2016-08-12] MEDS ORDERED: ALUMINUM/MAGNESIUM/SIMETH 30 ML CUP PO PRN (17:15)
[2016-08-12] MEDS ORDERED: LORazepam 1 MG TAB PO PRN (17:15)
[2016-08-12] MEDS ORDERED: diphenhydrAMINE HCL 50 MG CAP PO PRN (17:15)
[2016-08-12] MEDS ORDERED: BENZTROPINE MESYLATE 1 MG TAB PO PRN (17:15)
[2016-08-12] MEDS ORDERED: LORazepam 2 MG/ML VIAL IV PUSH PRN ×4 (17:15)
[2016-08-12] MEDS ORDERED: BENZTROPINE MESYLATE 2 MG/2 ML VIAL IM PRN (17:15)
[2016-08-12 17:30] VITALS: BP 182/73; PULSE 65; RESP 16; TEMP 98.4; O2SAT 99
[2016-08-12] MEDS: hydrOXYzine HCL 50 MG TAB PO PRN (17:49)
[2016-08-12] MEDS: LORazepam 2 MG TAB PO PRN ×2 (18:43→21:15)
[2016-08-12 20:30] VITALS: BP 165/76; PULSE 70; RESP 16; TEMP 98; O2SAT 99
[2016-08-12] MEDS: MAGNESIUM HYDROXIDE SUSP 30 ML CUP PO PRN (21:14)
[2016-08-12] MEDS: ACETAMINOPHEN 325 MG TAB PO PRN (21:15)
[2016-08-12 22:33] VITALS: BP 143/64; PULSE 67; RESP 20; TEMP 97.3; O2SAT 99
[2016-08-13] MEDS: ACETAMINOPHEN 325 MG TAB PO PRN ×2 (02:10→08:49)
[2016-08-13] MEDS: hydrOXYzine HCL 50 MG TAB PO PRN (02:10)
[2016-08-13 02:16] VITALS: BP 133/64; PULSE 70; RESP 18; TEMP 97.5; O2SAT 97
[2016-08-13 04:58] VITALS: BP_SYST 112; BP_SYST 116; BP_DIAS 56; BP_DIAS 87; PULSE 70; PULSE 79; RESP 18; TEMP 98.1; O2SAT 96; O2SAT 98
[2016-08-13] MEDS: LORazepam 2 MG TAB PO PRN (08:14)
[2016-08-13] MEDS ORDERED: FOLIC ACID 1 MG TAB PO SCH (09:00)
[2016-08-13] MEDS ORDERED: THIAMINE HCL 100 MG TAB PO SCH (09:00)
[2016-08-13] MEDS ORDERED: REMOVE OLD PATCH T-DERMAL SCH (09:00)
[2016-08-13] MEDS ORDERED: NICOTINE 21 MG/24 HR PATCH T-DERMAL SCH (09:00)
[2016-08-13 10:31] LABS: ANION GAP 5 MEQ/L (5-15); BICARBONATE 31.9 MEQ/L (21.0-32.0); BLOOD UREA NITROGEN 8 MG/DL (7-18); CHLORIDE 102 MEQ/L (98-107); CREATINE KINASE 581 U/L (26-192); GLOMERULAR FILTRATION RATE 93 ML/MIN (>89); HDL CHOLESTEROL 83.9 MG/DL (40.0-60.0); LDL CHOLESTEROL 140 MG/DL (0-99); SODIUM (NA) 139 MEQ/L (136-145)
[2016-08-13 10:48] LABS: CKMB 1.8 NG/ML (0.5-3.6)
--- NOTE | 2016-08-13 11:40 | HHI.HP ---
Provisional Diagnosis Admission Date Aug 12, 2016 at 15:12 [place]. Adjustment disorder with mixed disturbance of emotion and conduct. Certification of Person's Competence To Provide Express and Informed Consent I have personally examined Marian Waller , a person being served at [facility] on, Aug 13, 2016 11:34. Express and informed consent means consent voluntarily given in writing, by a competent person, after sufficient explanation and disclosure of the subject matter involved to enable the person to make a knowing and willful decision without any element of force, fraud, deceit, duress, or other form of constraint or coercion. This person is 18 years of age or older, is not now known to be incompetent to consent to treatment with a guardian advocate, and does not have a health care surrogate or proxy currently making medical treatment decisions. I have found this person to be one of the following: [x] Competent to provide express and informed consent, as defined above, for voluntary admission to this facility and is competent to provide express and informed consent for treatment. He/she has the consistent capacity to make well reasoned, willful, and knowing decisions concerning his or her medical or mental health treatment. The person fully and consistently understands the purpose of the admission for examination/placement and is fully capable of personally exercising all rights assured [place] Incompetent to provide express and informed consent to voluntary admission, and this is incompetent to provide express and informed consent to treatment. The person must be transferred to involuntary status and a petition for a guardian advocate filed with the Circuit Court. [] Refusing to provide express and informed consent to voluntary admission but is competent to provide express and informed consent for treatment. The person must be discharged or transferred to involuntary status. Form shall be completed within 24 hours of a person's arrival at the receiving facility and filed in the clinical record of each person: 1. Admitted on a voluntary basis 2. Permitted to provide express and informed consent to his/her own treatment 3. Allowed to transfer from involuntary to voluntary status 4. Prior to permitting a person to consent to his or her own treatment after having been previously found incompetent to consent to treatment. History of Present Illness Capacity: Has Capacity HPI 51-year-old female with a long history of alcohol abuse admitted for reports of suicidality. Patient's daughter had the patient Rojas acted. At the present time, the patient is not suicidal homicidal or psychotic. She verbally contracts for safety. Unfortunately, she has been in and continues to want to drink alcohol. This physician therefore has no significant ability to help her and this facility is not license for detox and rehabilitation. As the patient is not acutely ill from a psychiatric standpoint and her main problem is alcohol , she will be discharged. She is being given prescriptions for Zoloft, clonidine to address her complaints of depression and anxiety when she is not drinking. Review of Systems ROS Limitations: Clinical Condition Past Psych History Psychological trauma history Denied Violence risk - others (6 mos) Minimal Violence risk - self (6 mos) Moderate due to her ongoing wish to drink alcohol. Substance Abuse History Drugs/Alcohol past 12 months Drinks 1-2 pints of vodka per day according to her own report. Past Family Social History Coded Allergies: Sulfa (Verified Allergy, Intermediate, Hives, 08/11/16) Reported Medications Clonazepam 0.5 Mg Tab0.5 Mg PO BID #60 TAB Ref 0 08/11/16 Discontinued Scripts Thiamine (Vitamin B-1)100 Mg [id number] Mg PO DAILY 30 Days Ref 0 Prov:Maurilio Acuna MD 05/21/16 Folic Acid (Folate)1 Mg Tab1 Mg PO DAILY 30 Days Ref 0 Prov:Maurilio Acuna MD 05/21/16 Current Medications Medications (Trade) Dose Ordered Sig/Guillaume Route Start Time Stop Time Status Last Admin (Benadryl) 50 mg HS PRN PO 08/12/16 17:15 08/12/16 21:15 (Tylenol) 650 mg Q4H PRN PO 08/12/16 17:15 08/13/16 08:49 (Milk Of Magnesia Liq) 30 ml DAILY PRN PO 08/12/16 17:15 08/12/16 21:14 (Mag-Al Plus Susp Liq) 30 ml Q6H PRN PO 08/12/16 17:15 (Habitrol 21 Mg Patch.24 Hr) 1 patch DAILY T-DERMAL 08/13/16 09:00 08/13/16 08:10 (Atarax) 50 mg Q6H PRN PO 08/12/16 17:15 08/13/16 02:10 (Cogentin) 1 mg Q12H PRN PO 08/12/16 17:15 (Cogentin Inj) 1 mg Q12H PRN IM 08/12/16 17:15 Miscellaneous Information 1 DAILY T-DERMAL 08/13/16 09:00 08/13/16 08:10 (Romazicon Inj) 0.2 mg Q1M PRN IV PUSH 08/12/16 17:15 (Ativan) 1 mg Q4H PRN PO 08/12/16 17:15 (Ativan Inj) 1 mg Q4H PRN IV PUSH 08/12/16 17:15 (Ativan) 2 mg Q2H PRN PO 08/12/16 17:15 08/13/16 08:14 (Ativan Inj) 2 mg Q2H PRN IV PUSH 08/12/16 17:15 (Ativan Inj) 2 mg Q1H PRN IV PUSH 08/12/16 17:15 (Ativan Inj) 2 mg Q15M PRN IV PUSH 08/12/16 17:15 (Vitamin B1) 100 mg DAILY PO 08/13/16 09:00 08/13/16 08:10 (Folate) 1 mg DAILY PO 08/13/16 09:00 08/13/16 08:10 Family History Significant for mood disorders. Social History Has a daughter that she lives with intermittently. Not employed. Long multiyear history of alcoholism. Patient's Strengths (min. 2) Verbal and resilient. Physical Exam GENERAL: SKIN: Warm and dry. HEAD: Normocephalic. EYES: No scleral icterus. No injection or drainage. NECK: Supple, trachea midline. No JVD or lymphadenopathy. CARDIOVASCULAR: Regular rate and rhythm without murmurs, gallops, or rubs. RESPIRATORY: Breath sounds equal bilaterally. No accessory muscle use. GASTROINTESTINAL: Abdomen soft, non-tender, nondistended. MUSCULOSKELETAL: No cyanosis, or edema. BACK: Nontender without obvious deformity. No CVA tenderness. Vital Signs Vital Signs Date Time Temp Pulse Resp B/P Pulse Ox O2 Delivery O2 Flow Rate FiO2 08/13/16 04:58 98.1 70 18 116/87 98 Mental Status Examination Speech: Unremarkable Orientation: x3 Memory: Unremarkable Thought Process: Organized, Goal Directed Thought Content: Unremarkable Hallucination Type: None Attention and Concentration: Good Suicidal Ideation: No Previous Suicide Attempts: Yes Homicidal Ideation: No Previous Homicide Attempts: No Insight: Fair Judgment: WNL Affect: Good Mood: Appropriate Motor Activity: Normal gait Assessment & Plan Problem List: (1) Adjustment disorder with mixed disturbance of emotions and conduct ICD Code: F43.25 Assessment & Plan Estimated LOS: Discharge today. Freddy Funes MD Aug 13, 2016 11:40
[2016-08-13 11:58] LABS: HEMOGLOBIN A1a 1.4 %; HEMOGLOBIN A1b 0.8 %; HEMOGLOBIN Ao 85.3 %; HEMOGLOBIN F 1.3 %; HEMOGLOBIN LA1C 2.1 %; HEMOGLOBIN P3 3.6 %
[2016-08-13] MEDS ORDERED: CLON0.1T PO (12:25)
[2016-08-13] MEDS ORDERED: ZOLO100T PO (12:25)
--- NOTE | 2016-08-13 13:03 | PD.CONS ---
[facility] By [facility] Reason for Consult hypokalemia and medical management Primary Care Physician Unknown Diagnoses: History of Present Illness 51 year old female with a history of a benzo overdose was treated for one day on the medical floor for rhabdomyolysis. She was then transferred to the psych department for further evaluation. [facility] is being consulted for medical management. Past Family Social History Allergies: Coded Allergies: Sulfa (Verified Allergy, Intermediate, Hives, 08/11/16) Past Medical History Kidney stones Past Surgical History C section Reported Medications Reported Meds & Active Scripts Active Clonidine (Clonidine HCl) 0.1 Mg Tab 0.1 Mg PO TID Zoloft (Sertraline HCl) 100 Mg Tab 100 Mg PO DAILY Reported Clonazepam 0.5 Mg Tab 0.5 Mg PO BID Active Ordered Medications Current Medications Medications (Trade) Dose Ordered Sig/Guillaume Route Start Time Stop Time Status Last Admin (Benadryl) 50 mg HS PRN PO 08/12/16 17:15 08/12/16 21:15 (Tylenol) 650 mg Q4H PRN PO 08/12/16 17:15 08/13/16 08:49 (Milk Of Magnesia Liq) 30 ml DAILY PRN PO 08/12/16 17:15 08/12/16 21:14 (Mag-Al Plus Susp Liq) 30 ml Q6H PRN PO 08/12/16 17:15 (Habitrol 21 Mg Patch.24 Hr) 1 patch DAILY T-DERMAL 08/13/16 09:00 08/13/16 08:10 (Atarax) 50 mg Q6H PRN PO 08/12/16 17:15 08/13/16 02:10 (Cogentin) 1 mg Q12H PRN PO 08/12/16 17:15 (Cogentin Inj) 1 mg Q12H PRN IM 08/12/16 17:15 Miscellaneous Information 1 DAILY T-DERMAL 08/13/16 09:00 08/13/16 08:10 (Romazicon Inj) 0.2 mg Q1M PRN IV PUSH 08/12/16 17:15 (Ativan) 1 mg Q4H PRN PO 08/12/16 17:15 (Ativan Inj) 1 mg Q4H PRN IV PUSH 08/12/16 17:15 (Ativan) 2 mg Q2H PRN PO 08/12/16 17:15 08/13/16 08:14 (Ativan Inj) 2 mg Q2H PRN IV PUSH 08/12/16 17:15 (Ativan Inj) 2 mg Q1H PRN IV PUSH 08/12/16 17:15 (Ativan Inj) 2 mg Q15M PRN IV PUSH 08/12/16 17:15 (Vitamin B1) 100 mg DAILY PO 08/13/16 09:00 08/13/16 08:10 (Folate) 1 mg DAILY PO 08/13/16 09:00 08/13/16 08:10 Social History Tobacco use: Alcohol use: Illicit drug use: marijuana Physical Exam Vital Signs Vital Signs Date Time Temp Pulse Resp B/P Pulse Ox O2 Delivery O2 Flow Rate FiO2 08/13/16 04:58 98.1 70 18 116/87 98 08/13/16 02:16 97.5 70 18 133/64 97 08/12/16 22:33 97.3 67 20 143/64 99 08/12/16 20:30 98.0 70 16 165/76 99 08/12/16 17:30 98.4 65 16 182/73 99 Physical Exam GENERAL: This is a well-nourished, well-developed patient, in no apparent distress. SKIN: No rashes, ecchymoses or lesions. Cool and dry. HEAD: Atraumatic. Normocephalic. No temporal or scalp tenderness. EYES: Pupils equal round and reactive. Extraocular motions intact. No scleral icterus. No injection or drainage. ENT: Nose without bleeding, purulent drainage or septal hematoma. Throat without erythema, tonsillar hypertrophy or exudate. Uvula midline. Airway patent. NECK: Trachea midline. No JVD or lymphadenopathy. Supple, nontender, no meningeal signs. CARDIOVASCULAR: Regular rate and rhythm without murmurs, gallops, or rubs. RESPIRATORY: Clear to auscultation. Breath sounds equal bilaterally. No wheezes , rales, or rhonchi. GASTROINTESTINAL: Abdomen soft, non-tender, nondistended. No hepato-splenomegaly , or palpable masses. No guarding. MUSCULOSKELETAL: Extremities without clubbing, cyanosis, or edema. No joint tenderness, effusion, or edema noted. No calf tenderness. Negative Homans sign bilaterally. NEUROLOGICAL: Awake and alert. Cranial nerves II through XII intact. Motor and sensory grossly within normal limits. Five out of 5 muscle strength in all muscle groups. Normal speech. Laboratory Laboratory Tests Test 08/13/16 09:09 Sodium Level 139 Potassium Level 4.0 Chloride Level 102 Carbon Dioxide Level 31.9 Anion Gap 5 Blood Urea Nitrogen 8 Creatinine 0.67 Estimat Glomerular Filtration 93 Rate Random Glucose 60 Calcium Level 9.3 Total Creatine Kinase 581 Creatine Kinase MB 1.8 Creatine Kinase MB % 0.3 Triglycerides Level 60 Cholesterol Level 236 LDL Cholesterol 140 HDL Cholesterol 83.9 Cholesterol/HDL Ratio 2.81 Result Diagram: 08/13/16 09 Assessment and Plan Problem List: (1) Adjustment disorder with mixed disturbance of emotions and conduct ICD Code: F43.25 Status: Acute (2) Rhabdomyolysis ICD Code: M62.82 Status: Acute Assessment and Plan 51 year old female with a history of a benzo overdose was treated for one day on the medical floor for rhabdomyolysis. She was then transferred to the psych department for further evaluation. [facility] is being consulted for hypokalemia and medical management. Adjustment disorder -managed by psych Rhabdomyolysis Labs: CPK trending down 781-->581 -Cont to encourage PO DVT prophylaxis: ambulation Written by Marilyn Encinas, acting as scribe for Dr. Lopez on 08/13/16 at [facility] Aug 13, 2016 13:03 -Cont to encourage PO DVT prophylaxis: ambulation Written by Marilyn Encinas, acting as scribe for Dr. Lopez on 08/13/16 at [facility] Aug 13, 2016 13:03
[2016-08-13] MEDS: MAGNESIUM HYDROXIDE SUSP 30 ML CUP PO PRN (13:13)
== END 2016-08-13 17:20 | disposition home or self-care (01) | DRG 882 ==
LOC: H260 15:12
PROVIDERS: ADMIT Psychiatry & Neurology Psychiatry; ATTEND Psychiatry & Neurology Psychiatry
DX: F43.25 Adjustment disorder with mixed disturbance of emotions and conduct (principal); M62.82 Rhabdomyolysis; F10.20 Alcohol dependence, uncomplicated; F12.90 Cannabis use, unspecified, uncomplicated; Z72.0 Tobacco use
CPT/HCPCS: 80048; 80061; 82550; 82552; 83036; Q0163

== ENCOUNTER 2016-08-14 17:42 | Emergency (ER) | payer MEDICAID, OTHER ==
[~2016-08-14] VITALS: Ht 162.6 cm; Wt 56.0 kg
[~2016-08-14 17:42] MED LIST changes: +CLON0.1T PO; +ZOLO100T PO
[2016-08-14] MEDS ORDERED: SODIUM CHLOR 0.9% 1000 ML INJ 1,000 ML IV SCH (17:56)
[2016-08-14 18:00] VITALS: TEMP 98.3
[2016-08-14] MEDS ORDERED: ONDANSETRON HCL 4 MG/2 ML VIAL IVP ONE (18:00)
[2016-08-14] MEDS ORDERED: LORazepam 2 MG/ML VIAL IV PUSH PRN ×4 (18:00)
[2016-08-14] MEDS ORDERED: SODIUM CHLORIDE 0.9% FLUSH 10 ML FLUSH IV FLUSH PRN (18:00)
[2016-08-14] MEDS ORDERED: FLUMAZENIL 0.5 MG/5 ML VIAL IV PUSH PRN (18:00)
[2016-08-14] MEDS ORDERED: LORazepam 1 MG TAB PO PRN (18:00)
[2016-08-14] MEDS ORDERED: chlordiazePOXIDE 25 MG CAP PO PRN (18:00)
[2016-08-14] MEDS ORDERED: LORazepam 2 MG TAB PO PRN (18:00)
[2016-08-14 18:03] VITALS: BP 115/58; PULSE 72; RESP 16; O2SAT 96
--- NOTE | 2016-08-14 18:08 | PD ---
HPI Chief Complaint: EtOH intoxication. Suicidal ideation. Rojas act. Time Seen by Provider: 18:01 Travel History International Travel<30 days: No Contact w/Intl Traveler<30days: No Traveled to known affect area: No History of Present Illness HPI 51-year-old female brought in by EMS under the Rojas act with EtOH intoxication, question benzo intoxication, suicidal ideation. Patient's plan she is going to stab herself in the liver and bleed to . Patient has no acute medical complaints. Patient was recently seen for similar complaints 2 days ago. Patient is allergic to sulfa. PFS Past Medical History Anxiety: Yes Depression: Yes Cancer: No Cardiovascular Problems: Yes (SVT in january, cardioverted) Cerebrovascular Accident: No Diabetes: No Diminished Hearing: No Endocrine: No Genitourinary: No Headaches: No Kidney Stones: Yes Neurologic: No Psychiatric: Yes Reproductive: No Respiratory: No Immunizations Current: Yes Migraines: No Seizures: No Sickle Cell Disease: No Menopausal: Yes : 3 Para: 2 Miscarriage: 1 : 0 Tubal Ligation: Yes Past Surgical History Arteriovenous Shunt: No Section: Yes Gynecologic Surgery: Yes (tubal ligation) Insulin Pump: No Joint Replacement: No Oral Surgery: Yes (tonsilectomy) Pacemaker: No Social History Alcohol Use: Yes (binge) Tobacco Use: Yes Substance Use: Yes (+thc) Allergies-Medications (Allergen,Severity, Reaction): Coded Allergies: Sulfa (Verified Allergy, Intermediate, Hives, 08/14/16) Reported Meds & Prescriptions Reported Meds & Active Scripts Active Clonidine (Clonidine HCl) 0.1 Mg Tab 0.1 Mg PO TID Zoloft (Sertraline HCl) 100 Mg Tab 100 Mg PO DAILY Reported Clonazepam 0.5 Mg Tab 0.5 Mg PO BID Review of Systems ROS Limitations: Intoxication Except as stated in HPI: all other systems reviewed are Neg Physical Exam Narrative GENERAL: Patient is arousable but obtunded. Obviously intoxicated. No obvious signs of trauma. Currently cooperative. SKIN: Warm and dry. Normal color. Normal turgor. No signs of trauma. HEAD: Atraumatic. Normocephalic. EYES: Pupils equal and round. No scleral icterus. No injection or drainage. ENT: No nasal bleeding or discharge. Mucous membranes pink and moist. Pharynx is clear. Airway is patent. NECK: Trachea midline. Neck is supple nontender. CARDIOVASCULAR: Regular rate and rhythm. RESPIRATORY: No accessory muscle use. Clear to auscultation. Breath sounds equal bilaterally. GASTROINTESTINAL: Abdomen soft, non-tender, nondistended. Hepatic and splenic margins not palpable. MUSCULOSKELETAL: Extremities without clubbing, cyanosis, or edema. No obvious deformities. NEUROLOGICAL: Awake and alert. No obvious cranial nerve deficits. Motor grossly within normal limits. Five out of 5 muscle strength in the arms and legs. Normal speech. PSYCHIATRIC: Appropriate mood and affect; insight and judgment normal. Data Data Last Documented VS Vital Signs Date Time Temp Pulse Resp B/P Pulse Ox O2 Delivery O2 Flow Rate FiO2 08/14/16 18:03 72 16 115/58 96 Room Air 08/14/16 18:00 98.3 Orders Complete Blood Count With Diff (08/14/16 17:56) Comprehensive Metabolic Panel (08/14/16 17:56) Urinalysis - C+S If Indicated (08/14/16 17:56) Iv Access Insert/Monitor (08/14/16 17:56) Cath For Specimen (08/14/16 17:56) Psych Screen (08/14/16 17:56) Drug Screen, Random Urine (08/14/16 17:56) Alcohol (Ethanol) (08/14/16 17:56) Ecg Monitoring (08/14/16 17:56) Oximetry (08/14/16 17:56) Ondansetron Inj (Zofran Inj) (08/14/16 18:00) Sodium Chlor 0.9% 1000 Ml Inj (Ns 1000 M (08/14/16 17:56) Sodium Chloride 0.9% Flush (Ns Flush) (08/14/16 18:00) Chlordiazepoxide (Librium) (08/14/16 18:00) Alcohol Withdrawal Asmt-Ciwa [id number] (08/14/16 17:56) Flumazenil Inj (Romazicon Inj) (08/14/16 18:00) Lorazepam (Ativan) (08/14/16 18:00) Lorazepam Inj (Ativan Inj) (08/14/16 18:00) Lorazepam (Ativan) (08/14/16 18:00) Lorazepam Inj (Ativan Inj) (08/14/16 18:00) Lorazepam Inj (Ativan Inj) (08/14/16 18:00) Lorazepam Inj (Ativan Inj) (08/14/16 18:00) Labs Laboratory Tests Test 08/14/16 08/14/16 18:07 18:40 White Blood Count 8.1 TH/MM3 Red Blood Count 4.14 MIL/MM3 Hemoglobin 12.5 GM/DL Hematocrit 37.7 % Mean Corpuscular Volume 91.1 FL Mean Corpuscular Hemoglobin 30.1 PG Mean Corpuscular Hemoglobin 33.0 % Concent Red Cell Distribution Width 13.6 % Platelet Count 172 TH/MM3 Mean Platelet Volume 8.6 FL Neutrophils (%) (Auto) 58.5 % Lymphocytes (%) (Auto) 33.4 % Monocytes (%) (Auto) 5.4 % Eosinophils (%) (Auto) 1.3 % Basophils (%) (Auto) 1.4 % Neutrophils # (Auto) 4.7 TH/MM3 Lymphocytes # (Auto) 2.7 TH/MM3 Monocytes # (Auto) 0.4 TH/MM3 Eosinophils # (Auto) 0.1 TH/MM3 Basophils # (Auto) 0.1 TH/MM3 CBC Comment DIFF FINAL Differential Comment Sodium Level 143 MEQ/L Potassium Level 4.1 MEQ/L Chloride Level 108 MEQ/L Carbon Dioxide Level 29.2 MEQ/L Anion Gap 6 MEQ/L Blood Urea Nitrogen 10 MG/DL Creatinine 0.75 MG/DL Estimat Glomerular Filtration 81 ML/MIN Rate Random Glucose 88 MG/DL Calcium Level 8.2 MG/DL Total Bilirubin 0.1 MG/DL Aspartate Amino Transf 37 U/L (AST/SGOT) Alanine Aminotransferase 40 U/L (ALT/SGPT) Alkaline Phosphatase 41 U/L Total Protein 6.1 GM/DL Albumin 3.2 GM/DL Ethyl Alcohol Level 421 MG/DL Urine Color LIGHT-YELLOW Urine Turbidity CLEAR Urine pH 5.0 Urine Specific [place] 1.004 Urine Protein NEG mg/dL Urine Glucose (UA) NEG mg/dL Urine Ketones NEG mg/dL Urine Occult Blood NEG Urine Nitrite NEG Urine Bilirubin NEG Urine Urobilinogen LESS THAN 2.0 MG/DL Urine Leukocyte Esterase NEG Urine RBC LESS THAN 1 /hpf Urine WBC LESS THAN 1 /hpf Urine Squamous Epithelial <1 /hpf Cells Urine Mucus FEW /lpf Microscopic Urinalysis Comment CULT NOT INDICATED Urine Opiates Screen NEG Urine Barbiturates Screen NEG Urine Amphetamines Screen NEG Urine Benzodiazepines Screen POS Urine Cocaine Screen NEG Urine Cannabinoids Screen POS MDM Medical Decision Making Medical Screen Exam Complete: Yes Emergency Medical Condition: Yes Medical Record Reviewed: Yes Differential Diagnosis Rojas act. EtOH intoxication. Benzodiazepine intoxication. Suicidal ideation. Narrative Course Patient is medically stable at time of exam. Psychiatric labs ordered per protocol. IV access is obtained patient is given 1 L normal saline bolus. Patient is given 25 mg Librium by mouth. CIWA protocol is ordered. CBC is unremarkable. Chemistry shows no significant findings. Urinalysis is within normal limits. Urine drug screen positive for benzodiazepines and cannabinoids Serum alcohol is 421 at 1807 hrs. Patient is medically clear for psychiatric evaluation. Diagnosis Primary Impression: Medical clearance for psychiatric admission Additional Impressions: Alcohol dependence with alcohol-induced mood disorder Suicidal ideations Condition: Stable Marvin Mccoy Aug 14, 2016 18:08
[2016-08-14 18:18] LABS: AUTOMATED NEUTROPHIL # 4.7 TH/MM3 (1.8-7.7); BASOPHIL # 0.1 TH/MM3 (0-0.2); BASOPHIL % 1.4 % (0.0-2.0); EOSINOPHIL # 0.1 TH/MM3 (0-0.4); EOSINOPHIL % 1.3 % (0.0-4.0); HEMATOCRIT 37.7 % (35.0-46.0); HEMO FLAGS DIFF FINAL; LYMPH % 33.4 % (9.0-44.0); LYMPHOCYTE # 2.7 TH/MM3 (1.0-4.8); MEAN CELL VOLUME 91.1 FL (80.0-100.0); MEAN CORPUSCULAR HEMOGLOBIN 30.1 PG (27.0-34.0); MONO % 5.4 % (0.0-8.0); NEUT % 58.5 % (16.0-70.0); PLATELET COUNT 172 TH/MM3 (150-450); RED BLOOD COUNT 4.14 MIL/MM3 (4.00-5.30); RED CELL DISTRIBUTION WIDTH 13.6 % (11.6-17.2); WHITE BLOOD COUNT 8.1 TH/MM3 (4.0-11.0)
[2016-08-14 18:38] LABS: ANION GAP 6 MEQ/L (5-15); AST (GOT) 37 U/L (15-37); BICARBONATE 29.2 MEQ/L (21.0-32.0); BLOOD UREA NITROGEN 10 MG/DL (7-18); CHLORIDE 108 MEQ/L (98-107); GLOMERULAR FILTRATION RATE 81 ML/MIN (>89); POTASSIUM 4.1 MEQ/L (3.5-5.1); SODIUM (NA) 143 MEQ/L (136-145)
[2016-08-14 18:43] LABS: ALKALINE PHOSPHATASE 41 U/L (45-117); ALT (GPT) 40 U/L (10-53); TOTAL BILIRUBIN ADULT 0.1 MG/DL (0.2-1.0)
[2016-08-14 19:15] LABS: AMPHETAMINE, URINE NEG (NEG); BARBITURATES, URINE NEG (NEG); BLOOD, URINE NEG (NEG); COCAINE, URINE NEG (NEG); COMMENT (UR) CULT NOT INDICATED; CULTURE IF INDICATED CULT NOT INDICATED; GLUCOSE,URINE NEG (NEG); KETONE, URINE NEG (NEG); MUCUS URINE FEW /lpf (OCC); NITRITE,URINE NEG (NEG); SQUAMOUS EPITHELIAL CELL URINE <1 /hpf (0-5); URINE COLOR LIGHT-YELLOW (YELLW/STRAW)
[2016-08-14 21:35] VITALS: BP 85/46; PULSE 68; RESP 18; O2SAT 92
[2016-08-15 00:18] VITALS: BP 103/48; PULSE 74; RESP 18; O2SAT 99
[2016-08-15 06:32] VITALS: BP 162/73; PULSE 85; RESP 20
[2016-08-15 11:00] VITALS: BP 120/68; PULSE 100; RESP 18
--- NOTE | 2016-08-15 12:31 | PD.CONS ---
Provisional Diagnosis Admission Date History of Present Illness Service Psychiatry Consult Requested By Primary Care Physician Unknown HPI The patient is a 51-year-old woman with psychiatric history of depression, anxiety, alcohol-induced mood disorder, alcohol and sedative- hypnotics use disorder, now becoming ER frequent visitor alcohol intoxicated, previous psychiatric hospitalizations, she was hospitalized here at [facility] in May 2016 under the care of Dr. Acuna, documentation reviewed, she is on Zoloft 100 mg and BuSpar 20 mg 3 times a day, on and off compliance, prescribed by PCP, she was Rojas acted and released from the ER yesterday by Dr. Funes, the documentation also reviewed, no significant medical history, who presents to the ED under Rojas act due to SI in the context of acute alcohol intoxication. On psychiatric evaluation patient is is calm and cooperative, requesting to be discharged to go back home. Patient denies depressive symptoms , she denies anxiety, she denies perceptual disturbances, she denies manic, she denies suicidal or homicidal ideation, denies visual and auditory hallucinations. On longitudinal observation in the ER patient has been calm and cooperative, no aggressive behavior or agitation observed or reported. No symptomatology of withdrawal reported or observed at this moment. She reports daily use of alcohol, she declines to give details about. Review of Systems Constitutional: DENIES: Diaphoretic episodes, Fatigue, Fever, Weight gain, Weight loss, Chills, Dizziness, Change in appetite, Night Sweats Endocrine: DENIES: Abnorml menstrual pattern, Heat/cold intolerance, Polydipsia , Polyuria, Polyphagia Eyes: DENIES: Blurred vision, Diplopia, Eye inflammation, Eye pain, Vision loss , Photosensitivity, Double Vision Ears, nose, mouth, throat: DENIES: Tinnitus, Hearing loss, Vertigo, Nasal discharge, Oral lesions, Throat pain, Hoarseness, Ear Pain, Running Nose, Epistaxis, Sinus Pain, Toothache, Odynophagia Respiratory: DENIES: Apneas, Cough, Snoring, Wheezing, Hemoptysis, Sputum production, Shortness of breath Cardiovascular: DENIES: Chest pain, Palpitations, Syncope, Dyspnea on Exertion , PND, Lower Extremity Edema, Orthopnea, Claudication Musculoskeletal: DENIES: Joint pain, Muscle aches, Stiffness, Joint Swelling, Back pain, Neck pain Integumentary: DENIES: Abnormal pigmentation, Pruritus, Rash, Nail changes, Breast masses, Breast skin changes, Nipple discharge Hematologic/lymphatic: DENIES: Bruising, Lymphadenopathy Immunologic/allergic: DENIES: Eczema, Urticaria Neurologic: DENIES: Abnormal gait, Headache, Localized weakness, Paresthesias, Seizures, Speech Problems, Tremor, Poor Balance Psychiatric: DENIES: Anxiety, Confusion, Mood changes, Depression, Hallucinations, Agitation, Suicidal Ideation, Homicidal Ideation, Delusions Past Family Social History Coded Allergies: Sulfa (Verified Allergy, Intermediate, Hives, 08/14/16) Active Scripts Clonidine 0.1 Mg Tab0.1 Mg PO TID #90 TAB Ref 0 Prov:Freddy Funes MD 08/13/16 Sertraline (Zoloft)100 Mg Uil609 Mg PO DAILY #30 TAB Ref 0 Prov:Freddy Funes MD 08/13/16 Reported Medications Clonazepam 0.5 Mg Tab0.5 Mg PO BID #60 TAB Ref 0 08/11/16 Discontinued Scripts Thiamine (Vitamin B-1)100 Mg Ovp511 Mg PO DAILY 30 Days Ref 0 Prov:Maurilio Acuna MD 05/21/16 Folic Acid (Folate)1 Mg Tab1 Mg PO DAILY 30 Days Ref 0 Prov:Maurilio Acuna MD 05/21/16 Family History She denies Social History Patient was born and raised in [place], she has been living in [place] since 1977, she is , she lives with her daughter and her daughter's fianc. She is unemployed in a cleaning company, her highest level of education is 2 years college Physical Exam No withdrawal present physical exam Vital Signs Vital Signs Date Time Temp Pulse Resp B/P Pulse Ox O2 Delivery O2 Flow Rate FiO2 08/15/16 11:00 100 18 120/68 Room Air 08/15/16 00:18 99 08/14/16 18:00 98.3 I/O 08/14/16 08/14/16 08/15/16 08:00 16:00 00:00 Intake Total 240 ml Balance 240 ml Lab Results BAL 421, toxicology positive for cannabis and benzodiazepines Mental Status Examination Appearance woman, [facility], good hygiene, superficially cooperative, calm Speech: Unremarkable Orientation: x3 Thought Process: Logical Thought Content: Unremarkable Hallucination Type: None Previous Suicide Attempts: Yes Homicidal Ideation: No Previous Homicide Attempts: No Judgment: WNL Mood: Appropriate Motor Activity: Normal gait Assessment & Plan Problem List: (1) Alcohol dependence with alcohol-induced mood disorder Assessment & Plan: At the moment of this evaluation the patient does not present any significant, concerning or acute evidence of depression, anxiety, nate or psychosis. The patient denies suicidal or homicidal ideation, the patient denies visual and auditory hallucinations. The patient does not benefit of acute psychiatric admission at this moment. She would really benefit of a comprehensive detox and rehabilitation program. She was offered to be placed in a store management, but she declines. Extensive psychoeducation , supportive motivation provided. Patient will be discharged back home. Rojas act will be lifted. ICD Code: F10.24 Assessment & Plan Estimated LOS: days Zacarias Danielson MD Aug 15, 2016 12:31
== END 2016-08-15 11:40 | disposition home or self-care (01) ==
LOC: NEPE 17:42 → NEPJ 08-15 11:40
DX: F10.24 Alcohol dependence with alcohol-induced mood disorder (principal); Z72.0 Tobacco use
CPT/HCPCS: 80053; 80307; 81001; 85025; 96361; 96374; 99283; J2405; J7030; P9612

== ENCOUNTER 2017-06-02 22:42 | Emergency (ER) | payer MEDICAID, OTHER ==
[2017-06-02 22:50] VITALS: BP 145/67; PULSE 72; O2SAT 96
[2017-06-02] MEDS ORDERED: LORazepam 2 MG/ML VIAL IM ONE (23:00)
[2017-06-03] MEDS ORDERED: LORazepam 2 MG/ML VIAL IM ONE
[2017-06-03] MEDS ORDERED: HALOPERIDOL LACTATE 5 MG/ML AMP IM ONE
[2017-06-03 00:10] LABS: AUTOMATED NEUTROPHIL # 8.9 TH/MM3 (1.8-7.7); BASOPHIL # 0.2 TH/MM3 (0-0.2); BASOPHIL % 1.4 % (0.0-2.0); EOSINOPHIL # 0.1 TH/MM3 (0-0.4); EOSINOPHIL % 0.6 % (0.0-4.0); HEMATOCRIT 41.2 % (35.0-46.0); LYMPH % 28.4 % (9.0-44.0); LYMPHOCYTE # 3.9 TH/MM3 (1.0-4.8); MEAN CELL VOLUME 87.9 FL (80.0-100.0); MEAN CORPUSCULAR HEMOGLOBIN 29.9 PG (27.0-34.0); MEAN PLATELET VOLUME 8.4 FL (7.0-11.0); MONO % 3.9 % (0.0-8.0); MONOCYTE # 0.5 TH/MM3 (0-0.9); NEUT % 65.7 % (16.0-70.0); PLATELET COUNT 223 TH/MM3 (150-450); RED BLOOD COUNT 4.69 MIL/MM3 (4.00-5.30); RED CELL DISTRIBUTION WIDTH 13.9 % (11.6-17.2); WHITE BLOOD COUNT 13.6 TH/MM3 (4.0-11.0)
[2017-06-03 00:25] LABS: ALT (GPT) 19 U/L (10-53); AST (GOT) 23 U/L (15-37); BICARBONATE 20.2 MEQ/L (21.0-32.0); BLOOD UREA NITROGEN 13 MG/DL (7-18); CALCIUM 8.7 MG/DL (8.5-10.1); CHLORIDE 108 MEQ/L (98-107); CREATININE 0.76 MG/DL (0.50-1.00); GLOMERULAR FILTRATION RATE 80 ML/MIN (>89); GLUCOSE,RANDOM 81 MG/DL (74-106); SODIUM (NA) 141 MEQ/L (136-145)
[2017-06-03 00:32] VITALS: BP 103/55; PULSE 79; RESP 17; TEMP 98.1; O2SAT 96
[2017-06-03 00:34] LABS: ALKALINE PHOSPHATASE 56 U/L (45-117); TOTAL BILIRUBIN ADULT 0.2 MG/DL (0.2-1.0); TOTAL PROTEIN 7.5 GM/DL (6.4-8.2)
[2017-06-03 01:59] VITALS: BP 96/54; PULSE 77; RESP 16; O2SAT 95
--- NOTE | 2017-06-03 02:00 | PD ---
HPI Chief Complaint: Psychiatric Symptoms Time Seen by Provider: 23:58 Travel History International Travel<30 days: No Contact w/Intl Traveler<30days: No Traveled to known affect area: No History of Present Illness HPI Patient is a 52-year-old female that presented to the emergency Department under Rojas act due to making suicidal statements. Patient allegedly may be statements to the police, she has a previous history of suicide attempts. On arrival patient was extremely combative both physically and verbally. She was not forthcoming with information nor was she cooperative with staff. [facility] Past Medical History Anxiety: Yes Depression: Yes Cancer: No Cardiovascular Problems: Yes (SVT in january, cardioverted) Cerebrovascular Accident: No Diabetes: No Diminished Hearing: No Endocrine: No Gastrointestinal Disorders: No Genitourinary: No Headaches: No Implanted Vascular Access Dvce: No Kidney Stones: Yes Neurologic: No Psychiatric: Yes Reproductive: No Respiratory: No Immunizations Current: Yes Migraines: No Seizures: No Sickle Cell Disease: No ?: Unknown Menopausal: Yes : 3 Para: 2 Miscarriage: 1 : 0 Tubal Ligation: Yes Past Surgical History Arteriovenous Shunt: No Section: Yes Gynecologic Surgery: Yes (tubal ligation) Insulin Pump: No Joint Replacement: No Oral Surgery: Yes (tonsilectomy) Pacemaker: No Other Surgery: Yes Social History Alcohol Use: Yes (binge) Tobacco Use: Yes Substance Use: Yes (CHRONIC ALCOHOL ABUSE) Allergies-Medications (Allergen,Severity, Reaction): Coded Allergies: Sulfa (Sulfonamide Antibiotics) (Unverified Allergy, Intermediate, Hives, 12/14/16) Reported Meds & Prescriptions Reported Meds & Active Scripts Active Clonidine (Clonidine HCl) 0.1 Mg Tab 0.1 Mg PO TID Zoloft (Sertraline HCl) 100 Mg Tab 100 Mg PO DAILY Reported Clonazepam 0.5 Mg Tab 0.5 Mg PO BID Review of Systems ROS Limitations: Uncooperative Except as stated in HPI: all other systems reviewed are Neg Psychiatric: Positive: Suicidal Ideations, Substance Abuse Physical Exam Narrative GENERAL: Well-developed, well-nourished female. Resting in no acute distress currently. SKIN: Warm and dry. HEAD: Atraumatic. Normocephalic. EYES: Pupils equal and round. No scleral icterus. No injection or drainage. ENT: No nasal bleeding or discharge. Mucous membranes pink and moist. NECK: Trachea midline. No JVD. CARDIOVASCULAR: Regular rate and rhythm. RESPIRATORY: No accessory muscle use. Clear to auscultation. Breath sounds equal bilaterally. GASTROINTESTINAL: Abdomen soft, non-tender, nondistended. Hepatic and splenic margins not palpable. MUSCULOSKELETAL: Extremities without clubbing, cyanosis, or edema. No obvious deformities. NEUROLOGICAL: No obvious cranial nerve deficits. Motor grossly within normal limits. Five out of 5 muscle strength in the arms and legs. Normal speech. Data Data Last Documented VS Vital Signs Date Time Temp Pulse Resp B/P (MAP) Pulse Ox O2 Delivery O2 Flow Rate FiO2 06/03/17 00:32 98.1 79 17 103/55 (71) 96 Room Air Orders Orders Complete Blood Count With Diff (06/02/17 22:58) Comprehensive Metabolic Panel (06/02/17 22:58) Thyroid Stimulating Hormone (06/02/17 22:58) Psych Screen (06/02/17 22:58) Lorazepam Inj (Ativan Inj) (06/02/17 23:00) Drug Screen, Random Urine (06/02/17 22:58) Alcohol (Ethanol) (06/02/17 22:58) Restraints Violent (06/02/17 23:09) Haloperidol Inj (Haldol Inj) (06/03/17 00:00) Lorazepam Inj (Ativan Inj) (06/03/17 00:00) Labs Laboratory Tests Test 06/02/17 23:50 White Blood Count 13.6 TH/MM3 Red Blood Count 4.69 MIL/MM3 Hemoglobin 14.0 GM/DL Hematocrit 41.2 % Mean Corpuscular Volume 87.9 FL Mean Corpuscular Hemoglobin 29.9 PG Mean Corpuscular Hemoglobin Concent 34.0 % Red Cell Distribution Width 13.9 % Platelet Count 223 TH/MM3 Mean Platelet Volume 8.4 FL Neutrophils (%) (Auto) 65.7 % Lymphocytes (%) (Auto) 28.4 % Monocytes (%) (Auto) 3.9 % Eosinophils (%) (Auto) 0.6 % Basophils (%) (Auto) 1.4 % Neutrophils # (Auto) 8.9 TH/MM3 Lymphocytes # (Auto) 3.9 TH/MM3 Monocytes # (Auto) 0.5 TH/MM3 Eosinophils # (Auto) 0.1 TH/MM3 Basophils # (Auto) 0.2 TH/MM3 CBC Comment DIFF FINAL Differential Comment Blood Urea Nitrogen 13 MG/DL Creatinine 0.76 MG/DL Random Glucose 81 MG/DL Total Protein 7.5 GM/DL Albumin 4.0 GM/DL Calcium Level 8.7 MG/DL Alkaline Phosphatase 56 U/L Aspartate Amino Transf (AST/SGOT) 23 U/L Alanine Aminotransferase (ALT/SGPT) 19 U/L Total Bilirubin 0.2 MG/DL Sodium Level 141 MEQ/L Potassium Level 3.9 MEQ/L Chloride Level 108 MEQ/L Carbon Dioxide Level 20.2 MEQ/L Anion Gap 13 MEQ/L Estimat Glomerular Filtration Rate 80 ML/MIN Thyroid Stimulating Hormone 3rd Gen 0.401 uIU/ML Ethyl Alcohol Level 222 MG/DL MDM Medical Decision Making Medical Screen Exam Complete: Yes Emergency Medical Condition: Yes Interpretation(s) Laboratory Tests Test 06/02/17 23:50 White Blood Count 13.6 TH/MM3 Red Blood Count 4.69 MIL/MM3 Hemoglobin 14.0 GM/DL Hematocrit 41.2 % Mean Corpuscular Volume 87.9 FL Mean Corpuscular Hemoglobin 29.9 PG Mean Corpuscular Hemoglobin Concent 34.0 % Red Cell Distribution Width 13.9 % Platelet Count 223 TH/MM3 Mean Platelet Volume 8.4 FL Neutrophils (%) (Auto) 65.7 % Lymphocytes (%) (Auto) 28.4 % Monocytes (%) (Auto) 3.9 % Eosinophils (%) (Auto) 0.6 % Basophils (%) (Auto) 1.4 % Neutrophils # (Auto) 8.9 TH/MM3 Lymphocytes # (Auto) 3.9 TH/MM3 Monocytes # (Auto) 0.5 TH/MM3 Eosinophils # (Auto) 0.1 TH/MM3 Basophils # (Auto) 0.2 TH/MM3 CBC Comment DIFF FINAL Differential Comment Blood Urea Nitrogen 13 MG/DL Creatinine 0.76 MG/DL Random Glucose 81 MG/DL Total Protein 7.5 GM/DL Albumin 4.0 GM/DL Calcium Level 8.7 MG/DL Alkaline Phosphatase 56 U/L Aspartate Amino Transf (AST/SGOT) 23 U/L Alanine Aminotransferase (ALT/SGPT) 19 U/L Total Bilirubin 0.2 MG/DL Sodium Level 141 MEQ/L Potassium Level 3.9 MEQ/L Chloride Level 108 MEQ/L Carbon Dioxide Level 20.2 MEQ/L Anion Gap 13 MEQ/L Estimat Glomerular Filtration Rate 80 ML/MIN Thyroid Stimulating Hormone 3rd Gen 0.401 uIU/ML Ethyl Alcohol Level 222 MG/DL Vital Signs Date Time Temp Pulse Resp B/P (MAP) Pulse Ox O2 Delivery O2 Flow Rate FiO2 06/03/17 00:32 98.1 79 17 103/55 (71) 96 Room Air 06/02/17 22:50 72 145/67 (93) 96 Room Air Differential Diagnosis Mood disorder versus substance abuse versus intoxication versus suicidal ideations versus other Narrative Course Patient is a 52-year-old female that presented under Rojas act for psychiatric evaluation after making suicidal threats. Patient was combative, aggressive on arrival. The patient was placed in 4. restraints and she was medicated to avoid harm to herself or anyone else., Patient is intoxicated with a blood alcohol level of 222. Chemistry and CBC reviewed, no acute findings identified. Patient's vital signs are stable, she is medically cleared for psychiatric evaluation at this time. Diagnosis Primary Impression: Medical clearance for psychiatric admission Additional Impressions: Alcohol intoxication Qualified Codes: F10.920 - Alcohol use, unspecified with intoxication, uncomplicated Suicidal ideations Condition: Stable Gini Baker Jun 03, 2017 02:00
[2017-06-03 06:34] VITALS: BP 127/63; PULSE 80; RESP 17; O2SAT 100
== END 2017-06-03 13:01 | disposition short-term general hospital (02) ==
LOC: NEPJ 22:42
DX: F10.129 Alcohol abuse with intoxication, unspecified (principal); Y90.7 Blood alcohol level of 200-239 mg/100 ml; R45.851 Suicidal ideations; F41.9 Anxiety disorder, unspecified; F32.9 Major depressive disorder, single episode, unspecified; I47.1 Supraventricular tachycardia; Z78.1 Physical restraint status; Z72.0 Tobacco use
CPT/HCPCS: 80053; 80307; 84443; 84703; 85025; 96372; 99285; J1630; J2060

== ENCOUNTER 2017-06-12 15:14 | Emergency (ER) | payer MEDICAID, OTHER ==
[~2017-06-12] VITALS: Ht 167.6 cm; Wt 65.0 kg
[2017-06-12 15:42] VITALS: BP 128/72; PULSE 84; RESP 12; TEMP 98.5; O2SAT 95
[2017-06-12] MEDS ORDERED: HALOPERIDOL LACTATE 5 MG/ML AMP IM ONE (16:30)
[2017-06-12] MEDS ORDERED: LORazepam 2 MG/ML VIAL IM ONE (16:30)
--- NOTE | 2017-06-12 16:33 | PD ---
HPI . Acute intoxication Chief Complaint: Psychiatric Symptoms Time Seen by Provider: 16:14 Travel History International Travel<30 days: No Contact w/Intl Traveler<30days: No Traveled to known affect area: No History of Present Illness HPI This patient was reportedly dropped off here by the [facility] Department for alcohol intoxication. This patient is intoxicated and unable to provide us with any meaningful history. The patient was seen here 1 week ago under very similar circumstances with the difference being that she was placed under a Rojas Act last week. She was eventually transported from our facility to [facility]. The results of her admission to [facility] are unknown. PFS Past Medical History Anxiety: Yes Depression: Yes Cancer: No Cardiovascular Problems: Yes (SVT in january, cardioverted) Cerebrovascular Accident: No Diabetes: No Diminished Hearing: No Endocrine: No Gastrointestinal Disorders: No Genitourinary: No Headaches: No Implanted Vascular Access Dvce: No Kidney Stones: Yes Neurologic: No Psychiatric: Yes Reproductive: No Respiratory: No Immunizations Current: Yes Migraines: No Seizures: No Sickle Cell Disease: No ?: Not Menopausal: Yes : 3 Para: 2 Miscarriage: 1 : 0 Tubal Ligation: Yes Past Surgical History Arteriovenous Shunt: No Section: Yes Gynecologic Surgery: Yes (tubal ligation) Insulin Pump: No Joint Replacement: No Oral Surgery: Yes (tonsilectomy) Pacemaker: No Other Surgery: Yes Social History Alcohol Use: Yes (binge) Tobacco Use: Yes Substance Use: Yes (CHRONIC ALCOHOL ABUSE) Allergies-Medications (Allergen,Severity, Reaction): Coded Allergies: Sulfa (Sulfonamide Antibiotics) (Unverified Allergy, Intermediate, Hives, 12/14/16) Reported Meds & Prescriptions Reported Meds & Active Scripts Active Clonidine (Clonidine HCl) 0.1 Mg Tab 0.1 Mg PO TID Zoloft (Sertraline HCl) 100 Mg Tab 100 Mg PO DAILY Reported Clonazepam 0.5 Mg Tab 0.5 Mg PO BID Review of Systems ROS Limitations: Intoxication, Uncooperative, Combative Physical Exam Narrative GENERAL: Disheveled appearing. Uncooperative. Actively fighting with staff. She is not stable on her feet. SKIN: Warm and dry. HEAD: Normocephalic/atraumatic. EYES: Pupils are equal. Extraocular movements are intact. NECK: Normal range of motion. CARDIOVASCULAR: Regular rate and rhythm. RESPIRATORY: Nonlabored respirations. MUSCULOSKELETAL: Atraumatic. NEUROLOGICAL: Nonfocal. PSYCHIATRIC: Patient is combative and intoxicated. She is unstable on her feet. Data Data Last Documented VS Vital Signs Date Time Temp Pulse Resp B/P (MAP) Pulse Ox O2 Delivery O2 Flow Rate FiO2 06/12/17 15:42 98.5 84 12 128/72 (90) 95 Orders Orders Restraints Violent (06/12/17 16:16) Lorazepam Inj (Ativan Inj) (06/12/17 16:30) Haloperidol Inj (Haldol Inj) (06/12/17 16:30) MDM Medical Decision Making Medical Screen Exam Complete: Yes Emergency Medical Condition: Yes Medical Record Reviewed: Yes (patient was seen here 1 week ago and found to be intoxicated. Otherwise were unremarkable and will not be repeated here today. She was discharged from [facility] to [facility].) Differential Diagnosis Differential diagnosis includes but is not limited to depression with suicidal gesture, suicide attempt, suicidal ideation, attention seeking behavior. Narrative Course Patient was dropped off to us by the [place] [employer] with reported suicidal ideation. She is intoxicated. She is unstable on her feet and unsafe for discharge at this point. We will allow her to sober up and then reassess her complaint of suicidal ideation. I suspect that her level of intoxication has something to do with her suicidal ideation. She will probably not be suicidal when she raya up. In the meantime, he has been placed in restraints for her own safety. She is not steady on her feet but is physically fighting us trying to leave. She will be given chemical sedation as well consisting of Ativan and Haldol. Her care will be checked out to the oncoming provider. Diagnosis Primary Impression: Alcohol intoxication Qualified Codes: F10.920 - Alcohol use, unspecified with intoxication, uncomplicated Patient Instructions: Alcohol Intoxication (DC), General Instructions Condition: Stable Heidy Hubbard MD Jun 12, 2017 16:33
--- NOTE | 2017-06-12 22:15 | PD ---
Physical Exam Narrative GENERAL: SKIN: Warm and dry. HEAD: Atraumatic. Normocephalic. EYES: Pupils equal and round. No scleral icterus. No injection or drainage. ENT: No nasal bleeding or discharge. Mucous membranes pink and moist. NECK: Trachea midline. No JVD. CARDIOVASCULAR: Regular rate and rhythm. RESPIRATORY: No accessory muscle use. Clear to auscultation. Breath sounds equal bilaterally. GASTROINTESTINAL: Abdomen soft, non-tender, nondistended. Hepatic and splenic margins not palpable. MUSCULOSKELETAL: Extremities without clubbing, cyanosis, or edema. No obvious deformities. NEUROLOGICAL: Awake and alert. but unsteady while ambulating...not actively fighting nor arguing Data Data Last Documented VS Vital Signs Date Time Temp Pulse Resp B/P (MAP) Pulse Ox O2 Delivery O2 Flow Rate FiO2 06/12/17 15:42 98.5 84 12 128/72 (90) 95 Orders Orders Restraints Violent (06/12/17 16:16) Lorazepam Inj (Ativan Inj) (06/12/17 16:30) Haloperidol Inj (Haldol Inj) (06/12/17 16:30) MDM Medical Record Reviewed: Yes Supervised Visit with MARILEE: No Narrative Course patient is not sober enough at 2215 to be released, will advised sleep overnight and reevaluate in am for discharge, no lindsey act form signed. no active si/hi at this time and patientn resting well and quietly Diagnosis Primary Impression: Alcohol intoxication Qualified Codes: F10.920 - Alcohol use, unspecified with intoxication, uncomplicated Patient Instructions: General Instructions, Alcohol Intoxication (DC) Condition: Stable Phil Beverly MD Jun 12, 2017 22:15
[2017-06-13 06:45] VITALS: BP 120/80
== END 2017-06-13 06:51 | disposition home or self-care (01) ==
LOC: NEPD 15:14 → NEDAMB 06-13 06:51
DX: F10.129 Alcohol abuse with intoxication, unspecified (principal); R45.851 Suicidal ideations; F41.9 Anxiety disorder, unspecified; F32.9 Major depressive disorder, single episode, unspecified; Z78.1 Physical restraint status; Z72.0 Tobacco use
CPT/HCPCS: 96372; 99285; J1630; J2060

== ENCOUNTER 2017-06-16 19:04 | Emergency (ER) | payer MEDICAID, OTHER ==
[2017-06-16 19:10] VITALS: BP 113/66; PULSE 90; RESP 19; TEMP 98.7; O2SAT 99
== END 2017-06-16 20:35 | disposition left against medical advice (07) ==
LOC: NEDAMB 19:04
DX: Z53.21 Procedure and treatment not carried out due to patient leaving prior to being seen by health care provider (principal)
CPT/HCPCS: 99281

== ENCOUNTER 2017-06-16 20:50 | Emergency (ER) | payer SELFPAY ==
[2017-06-16 20:51] VITALS: BP 147/66; PULSE 93; RESP 18; TEMP 97.8; O2SAT 96
== END 2017-06-16 21:15 | disposition left against medical advice (07) ==
LOC: NED 20:50
DX: Z53.21 Procedure and treatment not carried out due to patient leaving prior to being seen by health care provider (principal)
CPT/HCPCS: 99281

== ENCOUNTER 2017-07-17 02:59 | Emergency (ER) | payer SELFPAY ==
[2017-07-17 03:08] VITALS: BP 126/99; PULSE 97; RESP 18; TEMP 97.6; O2SAT 97
--- NOTE | 2017-07-17 04:48 | PD ---
HPI Chief Complaint: Psychiatric Symptoms Time Seen by Provider: 04:45 Travel History International Travel<30 days: No Contact w/Intl Traveler<30days: No Traveled to known affect area: No History of Present Illness HPI This patient was transferred here from [facility] for psychiatric evaluation. She was previously medically cleared. See their notes for complete history of present illness. She reports that she drank too much alcohol tonight. She has no medical complaints at this time. [facility] Past Medical History Anxiety: Yes Depression: Yes Cancer: No Cardiovascular Problems: Yes (SVT in january, cardioverted) Cerebrovascular Accident: No Diabetes: No Patient Takes Glucophage: No Diminished Hearing: No Endocrine: No Gastrointestinal Disorders: No Genitourinary: No Headaches: No Implanted Vascular Access Dvce: No Kidney Stones: Yes Neurologic: No Psychiatric: Yes Reproductive: No Respiratory: No Immunizations Current: Yes Migraines: No Seizures: No Sickle Cell Disease: No ?: Unknown Menopausal: Yes : 3 Para: 2 Miscarriage: 1 : 0 Tubal Ligation: Yes Past Surgical History Arteriovenous Shunt: No Section: Yes Gynecologic Surgery: Yes (tubal ligation) Insulin Pump: No Joint Replacement: No Oral Surgery: Yes (tonsilectomy) Pacemaker: No Other Surgery: Yes Social History Alcohol Use: Yes (binge) Tobacco Use: Yes Substance Use: Yes (CHRONIC ALCOHOL ABUSE) Allergies-Medications (Allergen,Severity, Reaction): Coded Allergies: Sulfa (Sulfonamide Antibiotics) (Unverified Allergy, Intermediate, Hives, 06/16/17) Reported Meds & Prescriptions Reported Meds & Active Scripts Active Clonidine (Clonidine HCl) 0.1 Mg Tab 0.1 Mg PO TID Zoloft (Sertraline HCl) 100 Mg Tab 100 Mg PO DAILY Reported Clonazepam 0.5 Mg Tab 0.5 Mg PO BID Review of Systems Except as stated in HPI: all other systems reviewed are Neg Physical Exam Narrative GENERAL: Well-developed well-nourished female who is sleeping but is arousable. SKIN: Warm and dry. HEAD: Atraumatic. Normocephalic. EYES: Pupils equal and round. No scleral icterus. No injection or drainage. CARDIOVASCULAR: Regular rate and rhythm. No murmur appreciated. RESPIRATORY: No accessory muscle use. Clear to auscultation. Breath sounds equal bilaterally. GASTROINTESTINAL: Abdomen soft, non-tender, nondistended. Hepatic and splenic margins not palpable. MUSCULOSKELETAL: No obvious deformities. No clubbing. No cyanosis. No edema. NEUROLOGICAL: Awake and alert. No obvious cranial nerve deficits. Motor grossly within normal limits. Normal speech. PSYCHIATRIC: Appropriate mood and affect; insight and judgment normal. Data Data Last Documented VS Vital Signs Date Time Temp Pulse Resp B/P (MAP) Pulse Ox O2 Delivery O2 Flow Rate FiO2 07/17/17 03:08 97.6 97 18 126/99 (108) 97 Room Air Orders Orders Diet Regular Basic (07/17/17 Breakfast) [facility] Medical Decision Making Medical Screen Exam Complete: Yes Emergency Medical Condition: Yes Medical Record Reviewed: Yes Differential Diagnosis Alcohol intoxication, acute psychosis, major depressive disorder Narrative Course Mental health screening discussed with the patient. Psychiatric screen ordered. Lab work from [facility] has been reviewed. Her alcohol level was 420. She is medically cleared for psychiatric disposition. Diagnosis Primary Impression: Medical clearance for psychiatric admission Chidi Webster Jul 17, 2017 04:48
[2017-07-17 06:27] VITALS: BP 176/81; PULSE 105; RESP 17; TEMP 98.7; O2SAT 95
--- NOTE | 2017-07-17 09:03 | PD.PSY.CON ---
Provisional Diagnosis Admission Date Date of consultation 07/17/17 [place]. 1. Alcohol dependence [place] II. Deferred History of Present Illness Service Psychiatry Consult Requested By Emergency department Reason for Consult Crystal acted Primary Care Physician No Primary Care Physician HPI Ms. Waller is a 52-year-old female with a history of alcohol use disorder who presents in transfer from [facility] under a Rojas act. Documentation from outside hospital reviewed. Rojas Act alleges that patient "wants to kill herself" but the ED provider's note indicates that she is "non-suicidal." Her alcohol level on presentation to outside hospital was 420. Reviewing our electronic medical record, I note that the patient was seen most recently in consultation by Dr. Danielson in July 2016 with a diagnosis at that time of alcohol use disorder with associated mood disorder. Patient seen and examined. Chart reviewed. Case discussed with nursing staff. Per nursing staff, there has been no evidence of behavioral disturbance, no suicidality or homicidality while the patient has been under observation in the [facility]. On my examination this morning the patient is clinically sober. Affect is a little bit dysphoric but I can elicit no symptoms consistent with severe depressive or hypomanic/manic illness. She denies any suicidal or homicidal ideation, intent or plan on direct questioning and contracts for safety. She denies any audiovisual hallucinations. I can elicit no delusions: No paranoia, no ideas of reference, no thought insertion or withdrawal. Remainder of the psychiatric ROS is negative. No acute physical complaints. Patient is requesting discharge from the ER this morning. Past psychiatric history: Patient reports a history of depression. Chart suggests a history of alcohol use issues. Not presently seeing a psychiatrist. Most recent psychiatric admission was here at [place]. Denies a history of suicide attempts. No reported history of violent behavior. Family history: Family history of depression. Denies family history of suicide or substance use disorder. Chemical dependency history: Patient reports that she has been drinking 2 pints of liquor a day. She does have a history of DTs in the past but no history of withdrawal seizures. No withdrawal symptoms reported presently. No other substance use reported. When I suggest that she pursue chemical dependency treatment she says "I don't need [that]." Social history: Patient lives with daughter. She is . She has 2 daughters. She has some college education. She works doing maintenance work and cleaning. She denies any access to guns or firearms. She had a DUI in 2001 but denies any active legal issues. With regards to yazidism beliefs she says that she is "floundering." Review of Systems Except as stated in HPI: all other systems reviewed are Neg Past Family Social History Coded Allergies: Sulfa (Sulfonamide Antibiotics) (Unverified Allergy, Intermediate, Hives, 06/16/17) Past Medical History See electronic medical record Active Scripts Clonidine (Clonidine) 0.1 Mg Tab, 0.1 MG PO TID for Anxiety, #90 TAB 0 Refills Prov:Freddy Funes MD 08/13/16 Sertraline (Zoloft) 100 Mg Tab, 100 MG PO DAILY, #30 TAB 0 Refills Prov:Freddy Funes MD 08/13/16 Reported Medications Clonazepam (Clonazepam) 0.5 Mg Tab, 0.5 MG PO BID, #60 TAB 0 Refills 08/11/16 Patient's Strengths (min. 2) Able to access clinical care. Verbally fluent. Physical Exam Physical exam completed by ED provider. On my examination today, the patient appears to be in no acute physical distress. No signs of intoxication or withdrawal noted. No motor abnormalities noted. Appears to be attending to basic needs. Labs and vitals reviewed: Vital Signs Vital Signs Date Time Temp Pulse Resp B/P (MAP) Pulse Ox O2 Delivery O2 Flow Rate FiO2 07/17/17 06:27 98.7 105 17 176/81 (112) 95 Room Air Lab Results Laboratories from outside hospital reviewed: Alcohol level CDXX, downtrending. CBC unremarkable. CMP reveals mild transaminitis with an AST of 78 and an ALT of 48. Urine toxicology negative. Mental Status Examination Appearance: Disheveled (maintaining basic hygiene) Consciousness: Alert Orientation: x4 Motor Activity: Other (no motor abnormalities noted) Speech: Unremarkable Language: Adequate Fund of Knowledge: Adequate Attention and Concentration: Adequate Memory: Unremarkable Mood: Other (mildly dysphoric but not severely depressed) Affect: Other (consistent with mood) Thought Process & Associations: Intact, Logical, Linear Thought Content: Appropriate Hallucination Type: None Delusion Type: None Suicidal Ideation: No Suicidal Plan: No Suicidal Intention: No Homicidal Ideation: No Homicidal Plan: No Homicidal Intention: No Mental Status Exam Remarks Insight and judgment are fair to poor at best, particularly with respect to substance use issues. Assessment & Plan Problem List: (1) Alcohol dependence ICD Codes: F10.20 - Alcohol dependence, uncomplicated Status: Acute Assessment & Plan 52-year-old female with psychiatric history as detailed above who presents in transfer from outside hospital. Patient has a history of alcohol dependence. She is clinically sober presently. She denies any suicidal or homicidal ideation. There is no evidence of any unstable mental illness as defined under the Rojas act in this patient at this time. She appears to be attending to her basic needs. Synthesizing this information and based on the available evidence , I map plotter that the patient does not presently meet the Rojas act criteria. I' ve lifted the Rojas act. Patient is requesting discharge from the emergency room today, and I have no basis to hold her over her objection. Recommend outpatient chemical dependency follow-up, and nurse will provide the appropriate referrals. I have counseled the patient regarding warning signs for need to return to the psychiatric emergency room as part of a general safety plan. Patient is otherwise psychiatrically clear for discharge from the ED. Thank you very much for this consultation. Maurilio Acuna MD Jul 17, 2017 09:03
--- NOTE | 2017-07-17 09:53 | PD ---
Physical Exam Date Seen by Provider: Jul 17, 2017 Time Seen by Provider: 09:52 Narrative Patient was seen and evaluated by the psychiatrist. Rojas Act has been lifted by the psychiatrist. I was asked to discharge the patient. The patient denies any suicidal or homicidal thoughts. She feels comfortable going home. Data Data Last Documented VS Vital Signs Date Time Temp Pulse Resp B/P (MAP) Pulse Ox O2 Delivery O2 Flow Rate FiO2 07/17/17 06:27 98.7 105 17 176/81 (112) 95 Room Air Orders Orders Diet Regular Basic (07/17/17 Breakfast) MDM Supervised Visit with MARILEE: No Diagnosis Primary Impression: Alcohol dependence Qualified Codes: F10.29 - Alcohol dependence with unspecified alcohol-induced disorder Referrals: [facility] for appointment Patient Instructions: Alcohol Dependence (ED), General Instructions Additional Instruction: Follow up at [facility]. Return to the emergency department for any acute, worsening of symptoms. Med/Other Pt SpecificInfo: No Change to Meds Disposition: 01 DISCHARGE HOME Condition: Stable Loyda Harper Jul 17, 2017 09:53
== END 2017-07-17 10:17 | disposition home or self-care (01) ==
LOC: NEPJ 02:59
DX: F10.29 Alcohol dependence with unspecified alcohol-induced disorder (principal); F32.9 Major depressive disorder, single episode, unspecified; Y90.8 Blood alcohol level of 240 mg/100 ml or more; Z72.0 Tobacco use
CPT/HCPCS: 99284

== ENCOUNTER 2017-07-26 21:19 | Emergency (ER) | payer OTHER ==
[~2017-07-26] VITALS: Ht 172.7 cm; Wt 65.0 kg
--- NOTE | 2017-07-26 21:36 | PD ---
HPI Chief Complaint: Psychiatric Time Seen by Provider: 21:24 Travel History International Travel<30 days: No Contact w/Intl Traveler<30days: No Traveled to known affect area: No History of Present Illness HPI 52-year-old female was Rojas acted and brought in for psychiatric evaluation. Patient was threatening suicide. Patient states that she drank a liter of vodka daily including today. Patient was found with a kitchen knife threatened to harm herself. Patient was combative on the way to the ED. I am unable to get information regarding past apical history, medications, allergy from the patient. PFSH Past Medical History Anxiety: Yes Depression: Yes Cancer: No Cardiovascular Problems: Yes (SVT in january, cardioverted) Cerebrovascular Accident: No Diabetes: No Diminished Hearing: No Endocrine: No Gastrointestinal Disorders: No Genitourinary: No Headaches: No Implanted Vascular Access Dvce: No Kidney Stones: Yes Neurologic: No Psychiatric: Yes Reproductive: No Respiratory: No Immunizations Current: Yes Migraines: No Seizures: No Sickle Cell Disease: No Menopausal: Yes : 3 Para: 2 Miscarriage: 1 : 0 Tubal Ligation: Yes Past Surgical History Arteriovenous Shunt: No Section: Yes Gynecologic Surgery: Yes (tubal ligation) Insulin Pump: No Joint Replacement: No Oral Surgery: Yes (tonsilectomy) Pacemaker: No Other Surgery: Yes Social History Alcohol Use: Yes (binge) Tobacco Use: Yes Substance Use: Yes (CHRONIC ALCOHOL ABUSE) Allergies-Medications (Allergen,Severity, Reaction): Coded Allergies: Sulfa (Sulfonamide Antibiotics) (Unverified Allergy, Intermediate, Hives, 06/16/17) Reported Meds & Prescriptions Reported Meds & Active Scripts Active Clonidine (Clonidine HCl) 0.1 Mg Tab 0.1 Mg PO TID Zoloft (Sertraline HCl) 100 Mg Tab 100 Mg PO DAILY Reported Clonazepam 0.5 Mg Tab 0.5 Mg PO BID Review of Systems General / Constitutional: No: Fever Eyes: No: Visual changes HENT: No: Headaches Cardiovascular: No: Chest Pain or Discomfort Respiratory: No: Shortness of Breath Gastrointestinal: No: Abdominal Pain Genitourinary: No: Dysuria Musculoskeletal: No: Pain Skin: No Rash Neurologic: No: Weakness Psychiatric: No: Depression Endocrine: No: Polydipsia Hematologic/Lymphatic: No: Easy Bruising Physical Exam Narrative GENERAL: Well-nourished, well-developed patient. SKIN: Focused skin assessment warm/dry. HEAD: Normocephalic. EYES: No scleral icterus. No injection or drainage. NECK: Supple, trachea midline. No JVD or lymphadenopathy. CARDIOVASCULAR: Regular rate and rhythm without murmurs, gallops, or rubs. RESPIRATORY: Breath sounds equal bilaterally. No accessory muscle use. GASTROINTESTINAL: Abdomen soft, non-tender, nondistended. MUSCULOSKELETAL: No cyanosis, or edema. BACK: Nontender without obvious deformity. No CVA tenderness. Neurologic exam: Patient is intoxicated and combative. Patient moves all extremity well. No obvious focal neurologic deficit. Data Data Last Documented VS Vital Signs Date Time Temp Pulse Resp B/P (MAP) Pulse Ox O2 Delivery O2 Flow Rate FiO2 07/26/17 22:11 97.9 99 18 128/95 (106) 98 Orders Orders Complete Blood Count With Diff (07/26/17 21:29) Comprehensive Metabolic Panel (07/26/17 21:29) Thyroid Stimulating Hormone (07/26/17 21:29) Urinalysis - C+S If Indicated (07/26/17 21:29) Psych Screen (07/26/17 21:29) Drug Screen, Random Urine (07/26/17 21:29) Alcohol (Ethanol) (07/26/17 21:29) Ed Urine Pregnancytest Poc (07/26/17 21:29) Haloperidol Inj (Haldol Inj) (07/26/17 21:45) Lorazepam Inj (Ativan Inj) (07/26/17 21:45) Labs Laboratory Tests Test 07/26/17 21:35 White Blood Count 7.3 TH/MM3 Red Blood Count 4.14 MIL/MM3 Hemoglobin 12.3 GM/DL Hematocrit 36.8 % Mean Corpuscular Volume 88.8 FL Mean Corpuscular Hemoglobin 29.6 PG Mean Corpuscular Hemoglobin Concent 33.4 % Red Cell Distribution Width 15.2 % Platelet Count 198 TH/MM3 Mean Platelet Volume 7.9 FL Neutrophils (%) (Auto) 33.9 % Lymphocytes (%) (Auto) 51.0 % Monocytes (%) (Auto) 10.9 % Eosinophils (%) (Auto) 2.5 % Basophils (%) (Auto) 1.7 % Neutrophils # (Auto) 2.5 TH/MM3 Lymphocytes # (Auto) 3.7 TH/MM3 Monocytes # (Auto) 0.8 TH/MM3 Eosinophils # (Auto) 0.2 TH/MM3 Basophils # (Auto) 0.1 TH/MM3 CBC Comment AUTO DIFF Differential Comment AUTO DIFF CONFIRMED Platelet Estimate NORMAL Platelet Morphology Comment NORMAL Urine Color LIGHT-YELLOW Urine Turbidity CLEAR Urine pH 5.5 Urine Specific [place] 1.007 Urine Protein NEG mg/dL Urine Glucose (UA) NEG mg/dL Urine Ketones NEG mg/dL Urine Occult Blood NEG Urine Nitrite NEG Urine Bilirubin NEG Urine Urobilinogen LESS THAN 2.0 MG/DL Urine Leukocyte Esterase NEG Urine Squamous Epithelial Cells 2 /hpf Urine Bacteria OCC /hpf Microscopic Urinalysis Comment CULT NOT INDICATED Blood Urea Nitrogen 14 MG/DL Creatinine 0.50 MG/DL Random Glucose 102 MG/DL Total Protein 6.4 GM/DL Albumin 3.2 GM/DL Calcium Level 8.0 MG/DL Alkaline Phosphatase 55 U/L Aspartate Amino Transf (AST/SGOT) 129 U/L Alanine Aminotransferase (ALT/SGPT) 118 U/L Total Bilirubin 0.1 MG/DL Sodium Level 145 MEQ/L Potassium Level 3.5 MEQ/L Chloride Level 110 MEQ/L Carbon Dioxide Level 27.1 MEQ/L Anion Gap 8 MEQ/L Estimat Glomerular Filtration Rate 130 ML/MIN Thyroid Stimulating Hormone 3rd Gen 0.316 uIU/ML Urine Opiates Screen NEG Urine Barbiturates Screen NEG Urine Amphetamines Screen NEG Urine Benzodiazepines Screen NEG Urine Cocaine Screen NEG Urine Cannabinoids Screen NEG Ethyl Alcohol Level 465 MG/DL [facility] Medical Decision Making Medical Screen Exam Complete: Yes Emergency Medical Condition: Yes Interpretation(s) 22:27 PM. CBC within normal limits. WBC 7.3. 51 lymphocyte. Calcium 8.0. Total bili 0.1. AST 129. ALT 118. TSH 0.316. Alcohol 465. Urine drug screen negative. UA is negative. Differential Diagnosis Differential diagnosis including substance-induced mood disorder, depression, suicidal. Narrative Course 52-year-old female intoxicated and suicidal. Patient was Rojas acted. 22:29 PM. Patient is medically cleared for psychiatric evaluation. Junior Douglass MD Jul 26, 2017 21:36
[2017-07-26] MEDS ORDERED: LORazepam 2 MG/ML VIAL IM ONE (21:45)
[2017-07-26] MEDS ORDERED: HALOPERIDOL LACTATE 5 MG/ML AMP IM ONE (21:45)
[2017-07-26 21:49] LABS: AUTOMATED NEUTROPHIL # 2.5 TH/MM3 (1.8-7.7); BASOPHIL # 0.1 TH/MM3 (0-0.2); BASOPHIL % 1.7 % (0.0-2.0); EOSINOPHIL # 0.2 TH/MM3 (0-0.4); EOSINOPHIL % 2.5 % (0.0-4.0); HEMATOCRIT 36.8 % (35.0-46.0); HEMOGLOBIN 12.3 GM/DL (11.6-15.3); LYMPHOCYTE # 3.7 TH/MM3 (1.0-4.8); MEAN CELL VOLUME 88.8 FL (80.0-100.0); MEAN CORPUSCULAR HEMOGLOBIN 29.6 PG (27.0-34.0); MEAN CORPUSCULAR HGB CONC 33.4 % (32.0-36.0); MEAN PLATELET VOLUME 7.9 FL (7.0-11.0); MONO % 10.9 % (0.0-8.0); MONOCYTE # 0.8 TH/MM3 (0-0.9); NEUT % 33.9 % (16.0-70.0); PLATELET COUNT 198 TH/MM3 (150-450); RED BLOOD COUNT 4.14 MIL/MM3 (4.00-5.30); RED CELL DISTRIBUTION WIDTH 15.2 % (11.6-17.2); WHITE BLOOD COUNT 7.3 TH/MM3 (4.0-11.0)
[2017-07-26 21:57] LABS: BACTERIA, URINE OCC /hpf; BILIRUBIN, URINE NEG (NEG); BLOOD, URINE NEG (NEG); GLUCOSE,URINE NEG (NEG); KETONE, URINE NEG (NEG); NITRITE,URINE NEG (NEG); PH, URINE 5.5 (5.0-8.5); SQUAMOUS EPITHELIAL CELL URINE 2 /hpf (0-5); URINE COLOR LIGHT-YELLOW (YELLW/STRAW); URINE LEUKOCYTE ESTERASE NEG (NEG)
[2017-07-26 22:03] LABS: ALBUMIN 3.2 GM/DL (3.4-5.0); AST (GOT) 129 U/L (15-37); BICARBONATE 27.1 MEQ/L (21.0-32.0); BLOOD UREA NITROGEN 14 MG/DL (7-18); CHLORIDE 110 MEQ/L (98-107); GLOMERULAR FILTRATION RATE 130 ML/MIN (>89); GLUCOSE,RANDOM 102 MG/DL (74-106); SODIUM (NA) 145 MEQ/L (136-145)
[2017-07-26 22:05] LABS: ALT (GPT) 118 U/L (10-53)
[2017-07-26 22:11] VITALS: BP 128/95; PULSE 99; RESP 18; TEMP 97.9; O2SAT 98
[2017-07-26 22:14] LABS: ALKALINE PHOSPHATASE 55 U/L (45-117); TOTAL BILIRUBIN ADULT 0.1 MG/DL (0.2-1.0); TOTAL PROTEIN 6.4 GM/DL (6.4-8.2)
[2017-07-27] MEDS ORDERED: diphenhydrAMINE HCL 50 MG/ML VIAL IM ONE (05:45)
[2017-07-27] MEDS ORDERED: LORazepam 2 MG/ML VIAL IM ONE (05:45)
[2017-07-27 06:44] VITALS: BP 127/66; PULSE 87; RESP 18; O2SAT 96
--- NOTE | 2017-07-27 06:44 | PD ---
Data Data Last Documented VS Vital Signs Date Time Temp Pulse Resp B/P (MAP) Pulse Ox O2 Delivery O2 Flow Rate FiO2 07/26/17 22:11 97.9 99 18 128/95 (106) 98 Orders Orders Complete Blood Count With Diff (07/26/17 21:29) Comprehensive Metabolic Panel (07/26/17 21:29) Thyroid Stimulating Hormone (07/26/17 21:29) Urinalysis - C+S If Indicated (07/26/17 21:29) Psych Screen (07/26/17 21:29) Drug Screen, Random Urine (07/26/17 21:29) Alcohol (Ethanol) (07/26/17 21:29) Ed Urine Pregnancytest Poc (07/26/17 21:29) Haloperidol Inj (Haldol Inj) (07/26/17 21:45) Lorazepam Inj (Ativan Inj) (07/26/17 21:45) Lorazepam Inj (Ativan Inj) (07/27/17 05:45) Diphenhydramine Inj (Benadryl Inj) (07/27/17 05:45) Diet Regular Basic (07/27/17 Breakfast) Haloperidol Inj (Haldol Inj) (07/27/17 06:45) Restraints Violent (07/27/17 06:33) Labs Laboratory Tests Test 07/26/17 21:35 White Blood Count 7.3 TH/MM3 Red Blood Count 4.14 MIL/MM3 Hemoglobin 12.3 GM/DL Hematocrit 36.8 % Mean Corpuscular Volume 88.8 FL Mean Corpuscular Hemoglobin 29.6 PG Mean Corpuscular Hemoglobin Concent 33.4 % Red Cell Distribution Width 15.2 % Platelet Count 198 TH/MM3 Mean Platelet Volume 7.9 FL Neutrophils (%) (Auto) 33.9 % Lymphocytes (%) (Auto) 51.0 % Monocytes (%) (Auto) 10.9 % Eosinophils (%) (Auto) 2.5 % Basophils (%) (Auto) 1.7 % Neutrophils # (Auto) 2.5 TH/MM3 Lymphocytes # (Auto) 3.7 TH/MM3 Monocytes # (Auto) 0.8 TH/MM3 Eosinophils # (Auto) 0.2 TH/MM3 Basophils # (Auto) 0.1 TH/MM3 CBC Comment AUTO DIFF Differential Comment AUTO DIFF CONFIRMED Platelet Estimate NORMAL Platelet Morphology Comment NORMAL Urine Color LIGHT-YELLOW Urine Turbidity CLEAR Urine pH 5.5 Urine Specific [place] 1.007 Urine Protein NEG mg/dL Urine Glucose (UA) NEG mg/dL Urine Ketones NEG mg/dL Urine Occult Blood NEG Urine Nitrite NEG Urine Bilirubin NEG Urine Urobilinogen LESS THAN 2.0 MG/DL Urine Leukocyte Esterase NEG Urine Squamous Epithelial Cells 2 /hpf Urine Bacteria OCC /hpf Microscopic Urinalysis Comment CULT NOT INDICATED Blood Urea Nitrogen 14 MG/DL Creatinine 0.50 MG/DL Random Glucose 102 MG/DL Total Protein 6.4 GM/DL Albumin 3.2 GM/DL Calcium Level 8.0 MG/DL Alkaline Phosphatase 55 U/L Aspartate Amino Transf (AST/SGOT) 129 U/L Alanine Aminotransferase (ALT/SGPT) 118 U/L Total Bilirubin 0.1 MG/DL Sodium Level 145 MEQ/L Potassium Level 3.5 MEQ/L Chloride Level 110 MEQ/L Carbon Dioxide Level 27.1 MEQ/L Anion Gap 8 MEQ/L Estimat Glomerular Filtration Rate 130 ML/MIN Thyroid Stimulating Hormone 3rd Gen 0.316 uIU/ML Urine Opiates Screen NEG Urine Barbiturates Screen NEG Urine Amphetamines Screen NEG Urine Benzodiazepines Screen NEG Urine Cocaine Screen NEG Urine Cannabinoids Screen NEG Ethyl Alcohol Level 465 MG/DL [facility] Medical Record Reviewed: Yes Supervised Visit with MARILEE: No Narrative Course See Dr. Douglass's note for complete history of present illness. I became involved in this patient's case when she became increasingly agitated and hostile, requiring the use of chemical and physical restraints. Chidi Webster Jul 27, 2017 06:44
[2017-07-27] MEDS ORDERED: HALOPERIDOL LACTATE 5 MG/ML AMP IM ONE (06:45)
[2017-07-27 08:32] VITALS: BP 139/70; PULSE 84; RESP 16; TEMP 98.1; O2SAT 97
[2017-07-27 11:18] VITALS: BP 147/72; PULSE 92; RESP 18; O2SAT 96
[2017-07-27] MEDS ORDERED: LORazepam 2 MG/ML VIAL IV PUSH PRN ×4 (16:00)
[2017-07-27] MEDS ORDERED: FLUMAZENIL 0.5 MG/5 ML VIAL IV PUSH PRN (16:00)
[2017-07-27] MEDS ORDERED: LORazepam 2 MG TAB PO PRN (16:00)
[2017-07-27] MEDS ORDERED: LORazepam 1 MG TAB PO PRN (16:00)
--- NOTE | 2017-07-27 16:19 | PD ---
History of Present Illness Chief Complaint: Psychiatric Symptoms Time Seen by Provider: 15:50 Travel History International Travel<30 Days: No Contact w/Intl Traveler<30days: No Known affected area: No Legal Status Legal Status: Rojas Act History of Present Illness: History of Present Illness HPI 52-year-old female with history of alcohol use disorder who presents to the ED under a Rojas act initiated by law enforcement. The Rojas act alleges that the patient call 911 and advised them that she wanted to knifed herself. She reported that she drinks a liter of vodka a day. When the police arrived she was sitting on her living room floor next 1 8 inch kitchen knife. She refused to listen to officers and attempted to track the vodka she was then combative when officers attempted to stop her. Upon arrival to the ED the patient was combative. Her blood alcohol level on arrival was 465. The patient was allowed to sober up and monitored and secure environment. During her period of observation she presented no suicidality, no self injuries behaviors. Electronic medical record is reviewed. The patient has several visits to the ED with alcohol related issues. Her most recent visit was in July 17, 2017 in which she presented in an intoxicated manner. Her previous visit in June 2017 the patient was also intoxicated and she was sent to [facility] detox. This afternoon the patient is clinically sober. She had been sleeping and was given Ativan for symptoms of withdrawal as per [facility] protocol. She is dressed in [facility] with fair hygiene and grooming. Affect is congruent to mood. Mood is dysphoric. She denies feeling depressed. Patient speech is clear, logical, goal directed, of normal rate and tone. She does not appear internally stimulated. She denies any hallucinations, delusions or paranoia. Patient denies any suicidal or homicidal ideation, intent or plan. She admits to drinking large quantities of vodka but denies that she drinks on a daily basis. She reports that she has had periods of sobriety and that prior to this latest binge she had been sober for 10 months. Remainder of psychiatric review of system is negative. PFSH Past Medical History Anxiety: Yes Depression: Yes Cancer: No Cardiovascular Problems: Yes (SVT in january, cardioverted) Cerebrovascular Accident: No Diabetes: No Diminished Hearing: No Endocrine: No Gastrointestinal Disorders: No Genitourinary: No Headaches: No Implanted Vascular Access Dvce: No Kidney Stones: Yes Neurologic: No Psychiatric: Yes Reproductive: No Respiratory: No Immunizations Current: Yes Migraines: No Seizures: No Sickle Cell Disease: No Tetanus Vaccination: Unknown Influenza Vaccination: No ?: Not Menopausal: Yes : 3 Para: 2 Miscarriage: 1 : 0 Tubal Ligation: Yes Past Surgical History Arteriovenous Shunt: No Section: Yes Gynecologic Surgery: Yes (tubal ligation) Insulin Pump: No Joint Replacement: No Oral Surgery: Yes (tonsilectomy) Pacemaker: No Other Surgery: Yes Psychiatric History Psychiatric History Hx Psychiatric Treatment: PATIENT WAS LAST ADMITTED TO [facility] FOR SUBSTANCE INDUCED MOOD DISORDER AND DISCHARGED ON 08/13/16. Currently not under any psychiatric care. No previous history of suicide attempt. History of Inpatient Treatment: Yes Guns or firearms in home: No Social History Single, female. Lives with her adult daughter. She works intermittently as a director inbound sales. Hx Alcohol Use: Yes (CHRONIC EOTH USE) Hx Tobacco Use: Yes Hx Substance Use: Yes Substance Use Type: Alcohol Hx of Substance Use Treatment: Yes (Multiple admissions to various rehab facilities with the last one being in [facility] Family Psychiatric History Negative Allergies-Medications (Allergen,Severity, Reaction): Coded Allergies: Sulfa (Sulfonamide Antibiotics) (Unverified Allergy, Intermediate, Hives, 06/16/17) Reported Meds & Prescriptions Reported Meds & Active Scripts Active Clonidine (Clonidine HCl) 0.1 Mg Tab 0.1 Mg PO TID Zoloft (Sertraline HCl) 100 Mg Tab 100 Mg PO DAILY Reported Clonazepam 0.5 Mg Tab 0.5 Mg PO BID Review of Systems Constitutional: COMPLAINS OF: Weight loss Gastrointestinal: COMPLAINS OF: Nausea Psychiatric: DENIES: Anxiety, Confusion, Mood changes, Depression, Hallucinations, Agitation, Suicidal Ideation, Homicidal Ideation, Delusions Except as stated in HPI: all other systems reviewed are Neg Mental Status Examination Appearance: Appropriate Consciousness: Alert Orientation: x4 Motor Activity: Normal gait Speech: Unremarkable Language: Adequate Fund of Knowledge: Adequate Attention and Concentration: Adequate Memory: Unremarkable Mood: Appropriate Affect: Appropriate Thought Process & Associations: Logical, Goal directed Thought Content: Appropriate Hallucination Type: None Delusion Type: None Suicidal Ideation: No Suicidal Plan: No Suicidal Intention: No Homicidal Ideation: No Homicidal Plan: No Homicidal Intention: No Insight: Poor Judgment: Poor MDM Medical Decision Making Medical Record Reviewed: Yes Assessment/Plan 52-year-old female with history of alcohol use disorder who presents to the ED under a Rojas act initiated by law enforcement. The Rojas act alleges that the patient call 911 and advised them that she wanted to knifed herself. She reported that she drinks a liter of vodka a day. When the police arrived she was sitting on her living room floor next 1 8 inch kitchen knife. She refused to listen to officers and attempted to track the vodka she was then combative when officers attempted to stop her. Upon arrival to the ED the patient was combative. Her blood alcohol level on arrival was 465. The patient was allowed to sober up and monitored and secure environment. During her period of observation she presented no suicidality, no self injuries behaviors. After patient was allowed to sober up clinically she presented no evidence of any unstable mental illness has defined under the Rojas act. She admits to binge drinking large quantities of alcohol. At this time the patient is not receptive to substance abuse treatment. She is aware of resources available to her in the community. The Rojas act as lifted. Psychiatrically clear for discharge from the ED. Orders Orders Complete Blood Count With Diff (07/26/17 21:29) Comprehensive Metabolic Panel (07/26/17 21:29) Thyroid Stimulating Hormone (07/26/17 21:29) Urinalysis - C+S If Indicated (07/26/17 21:29) Psych Screen (07/26/17 21:29) Drug Screen, Random Urine (07/26/17 21:29) Alcohol (Ethanol) (07/26/17 21:29) Ed Urine Pregnancytest Poc (07/26/17 21:29) Haloperidol Inj (Haldol Inj) (07/26/17 21:45) Lorazepam Inj (Ativan Inj) (07/26/17 21:45) Lorazepam Inj (Ativan Inj) (07/27/17 05:45) Diphenhydramine Inj (Benadryl Inj) (07/27/17 05:45) Diet Regular Basic (07/27/17 Breakfast) Haloperidol Inj (Haldol Inj) (07/27/17 06:45) Restraints Violent (07/27/17 06:33) Diet Regular Basic (07/27/17 Lunch) Diet Regular Basic (07/27/17 Dinner) Alcohol Withdrawal Asmt-Ciwa ONCE (07/27/17 15:47) Flumazenil Inj (Romazicon Inj) (07/27/17 16:00) Lorazepam (Ativan) (07/27/17 16:00) Lorazepam Inj (Ativan Inj) (07/27/17 16:00) Lorazepam (Ativan) (07/27/17 16:00) Lorazepam Inj (Ativan Inj) (07/27/17 16:00) Lorazepam Inj (Ativan Inj) (07/27/17 16:00) Lorazepam Inj (Ativan Inj) (07/27/17 16:00) Results Vital Signs Date Time Temp Pulse Resp B/P (MAP) Pulse Ox O2 Delivery O2 Flow Rate FiO2 07/27/17 11:18 92 18 147/72 (97) 96 Room Air 07/27/17 08:32 98.1 84 16 139/70 (93) 97 Room Air 07/27/17 06:44 87 18 127/66 (86) 96 Room Air 07/26/17 22:11 97.9 99 18 128/95 (106) 98 Laboratory Tests Test 07/26/17 21:35 White Blood Count 7.3 Red Blood Count 4.14 Hemoglobin 12.3 Hematocrit 36.8 Mean Corpuscular Volume 88.8 Mean Corpuscular Hemoglobin 29.6 Mean Corpuscular Hemoglobin Concent 33.4 Red Cell Distribution Width 15.2 Platelet Count 198 Mean Platelet Volume 7.9 Neutrophils (%) (Auto) 33.9 Lymphocytes (%) (Auto) 51.0 Monocytes (%) (Auto) 10.9 Eosinophils (%) (Auto) 2.5 Basophils (%) (Auto) 1.7 Neutrophils # (Auto) 2.5 Lymphocytes # (Auto) 3.7 Monocytes # (Auto) 0.8 Eosinophils # (Auto) 0.2 Basophils # (Auto) 0.1 CBC Comment AUTO DIFF Differential Comment AUTO DIFF CONFIRMED Platelet Estimate NORMAL Platelet Morphology Comment NORMAL Urine Color LIGHT-YELLOW Urine Turbidity CLEAR Urine pH 5.5 Urine Specific [place] 1.007 Urine Protein NEG Urine Glucose (UA) NEG Urine Ketones NEG Urine Occult Blood NEG Urine Nitrite NEG Urine Bilirubin NEG Urine Urobilinogen LESS THAN 2.0 Urine Leukocyte Esterase NEG Urine Squamous Epithelial Cells 2 Urine Bacteria OCC Microscopic Urinalysis Comment CULT NOT INDICATED Blood Urea Nitrogen 14 Creatinine 0.50 Random Glucose 102 Total Protein 6.4 Albumin 3.2 Calcium Level 8.0 Alkaline Phosphatase 55 Aspartate Amino Transf (AST/SGOT) 129 Alanine Aminotransferase (ALT/SGPT) 118 Total Bilirubin 0.1 Sodium Level 145 Potassium Level 3.5 Chloride Level 110 Carbon Dioxide Level 27.1 Anion Gap 8 Estimat Glomerular Filtration Rate 130 Thyroid Stimulating Hormone 3rd Gen 0.316 Urine Opiates Screen NEG Urine Barbiturates Screen NEG Urine Amphetamines Screen NEG Urine Benzodiazepines Screen NEG Urine Cocaine Screen NEG Urine Cannabinoids Screen NEG Ethyl Alcohol Level 465 Diagnosis Primary Impression: Alcohol dependence with acute alcoholic intoxication Psychiatrically Cleared: Yes Med/ Other Pt Specific Info: No Meds Exist/No RX given Disposition: 01 DISCHARGE HOME Condition: Stable Problem Qualifiers Primary Impression: Alcohol dependence with acute alcoholic intoxication Qualified Codes: F10.220 - Alcohol dependence with intoxication, uncomplicated OscarArelyraul Terana Aston [facility] Jul 27, 2017 16:19
[2017-07-27] MEDS ORDERED: LORazepam 2 MG/ML VIAL IM PRN ×4 (16:45→20:00)
[2017-07-27 16:56] VITALS: BP 173/95; PULSE 92; RESP 18; TEMP 98.8; O2SAT 98
--- NOTE | 2017-07-27 16:58 | PD ---
Physical Exam Time Seen by Provider: 16:56 Gabe Mcgee has evaluated patient, lifted Rojas act and cleared patient for discharge. Data Data Last Documented VS Vital Signs Date Time Temp Pulse Resp B/P (MAP) Pulse Ox O2 Delivery O2 Flow Rate FiO2 07/27/17 16:56 98.8 92 18 173/95 (121) 98 Room Air Orders Orders Complete Blood Count With Diff (07/26/17 21:29) Comprehensive Metabolic Panel (07/26/17 21:29) Thyroid Stimulating Hormone (07/26/17 21:29) Urinalysis - C+S If Indicated (07/26/17 21:29) Psych Screen (07/26/17 21:29) Drug Screen, Random Urine (07/26/17 21:29) Alcohol (Ethanol) (07/26/17 21:29) Ed Urine Pregnancytest Poc (07/26/17 21:29) Haloperidol Inj (Haldol Inj) (07/26/17 21:45) Lorazepam Inj (Ativan Inj) (07/26/17 21:45) Lorazepam Inj (Ativan Inj) (07/27/17 05:45) Diphenhydramine Inj (Benadryl Inj) (07/27/17 05:45) Diet Regular Basic (07/27/17 Breakfast) Haloperidol Inj (Haldol Inj) (07/27/17 06:45) Restraints Violent (07/27/17 06:33) Diet Regular Basic (07/27/17 Lunch) Diet Regular Basic (07/27/17 Dinner) Alcohol Withdrawal Asmt-Ciwa ONCE (07/27/17 15:47) Flumazenil Inj (Romazicon Inj) (07/27/17 16:00) Lorazepam (Ativan) (07/27/17 16:00) Lorazepam Inj (Ativan Inj) (07/27/17 16:00) Lorazepam (Ativan) (07/27/17 16:00) Lorazepam Inj (Ativan Inj) (07/27/17 16:00) Lorazepam Inj (Ativan Inj) (07/27/17 16:00) Lorazepam Inj (Ativan Inj) (07/27/17 16:00) Lorazepam Inj (Ativan Inj) (07/27/17 20:00) Lorazepam Inj (Ativan Inj) (07/27/17 16:45) Lorazepam Inj (Ativan Inj) (07/27/17 17:00) Lorazepam Inj (Ativan Inj) (07/27/17 18:00) Ed Discharge Order (07/27/17 16:58) Labs Laboratory Tests Test 07/26/17 21:35 White Blood Count 7.3 TH/MM3 Red Blood Count 4.14 MIL/MM3 Hemoglobin 12.3 GM/DL Hematocrit 36.8 % Mean Corpuscular Volume 88.8 FL Mean Corpuscular Hemoglobin 29.6 PG Mean Corpuscular Hemoglobin Concent 33.4 % Red Cell Distribution Width 15.2 % Platelet Count 198 TH/MM3 Mean Platelet Volume 7.9 FL Neutrophils (%) (Auto) 33.9 % Lymphocytes (%) (Auto) 51.0 % Monocytes (%) (Auto) 10.9 % Eosinophils (%) (Auto) 2.5 % Basophils (%) (Auto) 1.7 % Neutrophils # (Auto) 2.5 TH/MM3 Lymphocytes # (Auto) 3.7 TH/MM3 Monocytes # (Auto) 0.8 TH/MM3 Eosinophils # (Auto) 0.2 TH/MM3 Basophils # (Auto) 0.1 TH/MM3 CBC Comment AUTO DIFF Differential Comment AUTO DIFF CONFIRMED Platelet Estimate NORMAL Platelet Morphology Comment NORMAL Urine Color LIGHT-YELLOW Urine Turbidity CLEAR Urine pH 5.5 Urine Specific [place] 1.007 Urine Protein NEG mg/dL Urine Glucose (UA) NEG mg/dL Urine Ketones NEG mg/dL Urine Occult Blood NEG Urine Nitrite NEG Urine Bilirubin NEG Urine Urobilinogen LESS THAN 2.0 MG/DL Urine Leukocyte Esterase NEG Urine Squamous Epithelial Cells 2 /hpf Urine Bacteria OCC /hpf Microscopic Urinalysis Comment CULT NOT INDICATED Blood Urea Nitrogen 14 MG/DL Creatinine 0.50 MG/DL Random Glucose 102 MG/DL Total Protein 6.4 GM/DL Albumin 3.2 GM/DL Calcium Level 8.0 MG/DL Alkaline Phosphatase 55 U/L Aspartate Amino Transf (AST/SGOT) 129 U/L Alanine Aminotransferase (ALT/SGPT) 118 U/L Total Bilirubin 0.1 MG/DL Sodium Level 145 MEQ/L Potassium Level 3.5 MEQ/L Chloride Level 110 MEQ/L Carbon Dioxide Level 27.1 MEQ/L Anion Gap 8 MEQ/L Estimat Glomerular Filtration Rate 130 ML/MIN Thyroid Stimulating Hormone 3rd Gen 0.316 uIU/ML Urine Opiates Screen NEG Urine Barbiturates Screen NEG Urine Amphetamines Screen NEG Urine Benzodiazepines Screen NEG Urine Cocaine Screen NEG Urine Cannabinoids Screen NEG Ethyl Alcohol Level 465 MG/DL MDM Supervised Visit with MARILEE: No Narrative Course Arely has evaluated patient, lifted Crystal damian and cleared patient for discharge. Patient contracts safety. Denies suicidal or homicidal ideations. Patient will be provided community resource packet to [facility] for follow-up. Has friends and family for support. Patient was medically cleared by alternate provider prior to psych screening. Patient has been evaluated by psychiatry and and is now cleared for discharge. Diagnosis Primary Impression: Alcohol dependence with acute alcoholic intoxication Qualified Codes: F10.220 - Alcohol dependence with intoxication, uncomplicated Referrals: [facility] (Out patient) [facility] [address] Primary Care Physician Psychiatrist [facility] Patient Instructions: General Instructions, Alcohol Dependence (ED) Departure Forms: Tests/Procedures Additional Instruction: Follow up with primary care physician. Stop drinking alcohol Follow up with [facility]. Return to [place] if symptoms persist, or worsen. Med/Other Pt SpecificInfo: No Change to Meds, No Meds Exist/No RX given Disposition: 01 DISCHARGE HOME Condition: Stable Emmy Juárez Jul 27, 2017 16:58
== END 2017-07-27 17:00 | disposition home or self-care (01) ==
LOC: NEPD 21:19 → NEPJ 07-27 17:00
DX: F10.220 Alcohol dependence with intoxication, uncomplicated (principal); Y90.8 Blood alcohol level of 240 mg/100 ml or more; R45.851 Suicidal ideations; F41.9 Anxiety disorder, unspecified; F32.9 Major depressive disorder, single episode, unspecified; Z72.0 Tobacco use; I47.1 Supraventricular tachycardia; Z78.1 Physical restraint status
CPT/HCPCS: 80053; 80307; 81001; 84443; 84703; 85025; 96372; 99285; J1200; J1630; J2060

== ENCOUNTER 2017-07-28 15:59 | Emergency (ER) | payer SELFPAY ==
[~2017-07-28] VITALS: Ht 157.5 cm; Wt 60.0 kg
[2017-07-28 16:27] VITALS: BP 125/68; PULSE 85; RESP 15; TEMP 97.8; O2SAT 94
--- NOTE | 2017-07-28 16:45 | PD ---
HPI . Alcohol intoxication Chief Complaint: Alcohol/Drug Intoxication Time Seen by Provider: 16:34 Travel History International Travel<30 days: No Contact w/Intl Traveler<30days: No Traveled to known affect area: No History of Present Illness HPI This patient was brought to us by the police department with alcohol intoxication. She states that she called the police herself because she wants help with her drinking. I asked her how much she drinks and she states "a lot. " PFSH Past Medical History Anxiety: Yes Depression: Yes Cancer: No Cardiovascular Problems: Yes (SVT in january, cardioverted) Cerebrovascular Accident: No Diabetes: No Diminished Hearing: No Endocrine: No Gastrointestinal Disorders: No Genitourinary: No Headaches: No Implanted Vascular Access Dvce: No Kidney Stones: Yes Neurologic: No Psychiatric: Yes Reproductive: No Respiratory: No Immunizations Current: Yes Migraines: No Seizures: No Sickle Cell Disease: No Tetanus Vaccination: Unknown Influenza Vaccination: No ?: Not Menopausal: Yes : 3 Para: 2 Miscarriage: 1 : 0 Tubal Ligation: Yes Past Surgical History Arteriovenous Shunt: No Section: Yes Gynecologic Surgery: Yes (tubal ligation) Insulin Pump: No Joint Replacement: No Oral Surgery: Yes (tonsilectomy) Pacemaker: No Tonsillectomy: Yes Other Surgery: Yes Social History Alcohol Use: Yes (1.5 pints of vodka per day) Tobacco Use: Yes (2 ppd) Substance Use: No (denies) Allergies-Medications (Allergen,Severity, Reaction): Coded Allergies: Sulfa (Sulfonamide Antibiotics) (Unverified Allergy, Intermediate, Hives, 06/16/17) Reported Meds & Prescriptions Reported Meds & Active Scripts Active No Active Prescriptions or Reported Medications Review of Systems ROS Limitations: Intoxication Physical Exam Narrative GENERAL: Awake and alert and in no acute distress. She smells of alcohol. SKIN: Warm and dry. HEAD: Normocephalic/atraumatic. EYES: Pupils are equal. Extraocular movements are intact. NECK: Normal range of motion. CARDIOVASCULAR: Regular rate and rhythm. RESPIRATORY: Nonlabored respirations. MUSCULOSKELETAL: Atraumatic. NEUROLOGICAL: Nonfocal. PSYCHIATRIC: Appropriate mood and affect. Data Data Last Documented VS Vital Signs Date Time Temp Pulse Resp B/P (MAP) Pulse Ox O2 Delivery O2 Flow Rate FiO2 07/28/17 16:27 97.8 85 15 125/68 (13) 94 MDM Medical Decision Making Medical Screen Exam Complete: Yes Emergency Medical Condition: Yes Differential Diagnosis Differential diagnosis includes alcohol desiccation, polysubstance abuse Narrative Course This patient was dropped off to us by the police department because of alcohol intoxication. The patient was seen here 2 days ago as a Rojas Act under very similar circumstances. At that time, she was found by the police with a knife at her side. The patient does not report any suicidal ideation today. The patient was just worked up here 2 days ago. I will not repeat labs today. She will be allowed to sleep it off. Diagnosis Primary Impression: Alcohol intoxication Qualified Codes: F10.920 - Alcohol use, unspecified with intoxication, uncomplicated Scripts No Active Prescriptions or Reported Meds Disposition: 01 DISCHARGE HOME Condition: Stable Heidy Hubbard MD Jul 28, 2017 16:45
== END 2017-07-28 18:42 | disposition home or self-care (01) ==
LOC: NEPD 15:59
DX: F10.129 Alcohol abuse with intoxication, unspecified (principal); F41.9 Anxiety disorder, unspecified; F32.9 Major depressive disorder, single episode, unspecified; I47.1 Supraventricular tachycardia; F17.200 Nicotine dependence, unspecified, uncomplicated
CPT/HCPCS: 99281

== ENCOUNTER 2017-08-14 13:17 | Emergency (ER) | payer SELFPAY ==
[~2017-08-14] VITALS: Ht 172.7 cm; Wt 72.0 kg
[2017-08-14 13:39] VITALS: BP 120/65; PULSE 80; RESP 15; TEMP 97.5; O2SAT 92
--- NOTE | 2017-08-14 13:43 | PD ---
HPI Chief Complaint: Alcohol/Drug Intoxication Time Seen by Provider: 13:34 Travel History International Travel<30 days: No Contact w/Intl Traveler<30days: No Traveled to known affect area: No History of Present Illness HPI 52-year-old female presents via EMS for evaluation of alcohol intoxication. She reports that she is an alcoholic and drinks 2 pints of liquor a day. She drank 2 pints of liquor this morning at home and then called EMS requesting help with detoxification. She reports that she lives alone, typically drinks at home. She denies any injury. Symptoms are moderate, aggravated by alcoholism with no alleviating factors. She has no other complaints at this time. [facility] Past Medical History Anxiety: Yes Depression: Yes Cancer: No Cardiovascular Problems: Yes (SVT in january, cardioverted) Cerebrovascular Accident: No Diabetes: No Diminished Hearing: No Endocrine: No Gastrointestinal Disorders: No Genitourinary: No Headaches: No Implanted Vascular Access Dvce: No Kidney Stones: Yes Neurologic: No Psychiatric: Yes Reproductive: No Respiratory: No Immunizations Current: Yes Migraines: No Seizures: No Sickle Cell Disease: No ?: Unknown Menopausal: Yes : 3 Para: 2 Miscarriage: 1 : 0 Tubal Ligation: Yes Past Surgical History Arteriovenous Shunt: No Section: Yes Gynecologic Surgery: Yes (tubal ligation) Insulin Pump: No Joint Replacement: No Oral Surgery: Yes (tonsilectomy) Pacemaker: No Tonsillectomy: Yes Other Surgery: Yes Social History Alcohol Use: Yes (1.5 pints of vodka per day) Tobacco Use: Yes (2 ppd) Substance Use: No (denies) Allergies-Medications (Allergen,Severity, Reaction): Coded Allergies: Sulfa (Sulfonamide Antibiotics) (Unverified Allergy, Intermediate, Hives, 06/16/17) Reported Meds & Prescriptions Reported Meds & Active Scripts Active No Active Prescriptions or Reported Medications Review of Systems ROS Limitations: Intoxication Except as stated in HPI: all other systems reviewed are Neg Physical Exam Exam Limitations: Intoxication Narrative GENERAL: Well-developed well-nourished female no acute distress. Sleeping but easily arousable. SKIN: Warm and dry. HEAD: Atraumatic. Normocephalic. EYES: Pupils equal and round. No scleral icterus. No injection or drainage. ENT: No nasal bleeding or discharge. Mucous membranes pink and moist. NECK: Trachea midline. No JVD. CARDIOVASCULAR: Regular rate and rhythm. No murmur appreciated. RESPIRATORY: No accessory muscle use. Clear to auscultation. Breath sounds equal bilaterally. GASTROINTESTINAL: Abdomen soft, non-tender, nondistended. Hepatic and splenic margins not palpable. MUSCULOSKELETAL: No obvious deformities. No clubbing. No cyanosis. No edema. NEUROLOGICAL: Awake and alert. No obvious cranial nerve deficits. Motor grossly within normal limits. Slurred speech. Poor finger to nose examination. Data Data Last Documented VS Vital Signs Date Time Temp Pulse Resp B/P (MAP) Pulse Ox O2 Delivery O2 Flow Rate FiO2 08/14/17 13:39 97.5 80 15 120/65 (83) 92 Room Air MDM Medical Decision Making Medical Screen Exam Complete: Yes Emergency Medical Condition: Yes Medical Record Reviewed: Yes Differential Diagnosis Alcoholism, alcohol intoxication, closed head injury Narrative Course 52-year-old female alcoholic presents intoxicated requesting help with detoxification. Once she is clinically sober she will be discharged. Discussed the importance of follow-up at a detoxification center such as [facility]. Diagnosis Primary Impression: Alcohol intoxication Referrals: [facility] Additional Instructions: Follow-up in a detoxification center such as [facility]. Return for any emergent medical conditions. Med/Other Pt SpecificInfo: No Change to Meds Scripts No Active Prescriptions or Reported Meds Disposition: 01 DISCHARGE HOME Condition: Stable Chidi Webster Aug 14, 2017 13:43
[2017-08-14 21:08] VITALS: BP 191/91; PULSE 92; RESP 18; O2SAT 99
[2017-08-14] MEDS ORDERED: PANTOPRAZOLE SODIUM 40 MG VIAL IV PUSH ONE (21:15)
[2017-08-14] MEDS ORDERED: ALUMINUM/MAGNESIUM/SIMETH 30 ML CUP PO ONE (21:15)
[2017-08-14] MEDS ORDERED: ATROPINE/SCOPOLAM/HYOSCYAM/PB ELIXIR 10 ML CUP PO ONE (21:15)
--- NOTE | 2017-08-14 21:18 | PD ---
HPI Chief Complaint: Alcohol/Drug Intoxication Time Seen by Provider: 21:08 Travel History International Travel<30 days: No Contact w/Intl Traveler<30days: No Traveled to known affect area: No History of Present Illness HPI 52-year-old female complains of chest pain. Patient states that the pain started about 2 hours ago. Patient was brought in by EMS for alcohol intoxication. Patient was seen by my statistical assistant. Patient did not complain of any chest pain or shortness of breath at that time. Patient was observed in the bed until she is awake alert oriented and waiting to be discharged. Patient started complaining of chest pain now. Patient states the pain is pressure pain substernally without radiation. Patient denies palpitation nausea diaphoresis. Patient denies any coughing congestion fever chills. Patient denies a history of CAD. Patient denies history hypertension, diabetes , hyperlipidemia. Patient drinks alcohol daily. Last drink was several hours ago. Patient is a smoker. On a scale from 1-10 the pain is a 10. PFSH Past Medical History Anxiety: Yes Depression: Yes Cancer: No Cardiovascular Problems: Yes (SVT in january, cardioverted) Cerebrovascular Accident: No Diabetes: No Diminished Hearing: No Endocrine: No Gastrointestinal Disorders: No Genitourinary: No Headaches: No Implanted Vascular Access Dvce: No Kidney Stones: Yes Medical other: Yes (MOST HX FROM PREVIOUS CHARTING, PT ONLY ANSWERING SOME. ) Neurologic: No Psychiatric: Yes Reproductive: No Respiratory: No Immunizations Current: Yes Migraines: No Seizures: No Sickle Cell Disease: No ?: Unknown Menopausal: Yes : 3 Para: 2 Miscarriage: 1 : 0 Tubal Ligation: Yes Past Surgical History Arteriovenous Shunt: No Section: Yes Gynecologic Surgery: Yes (tubal ligation) Insulin Pump: No Joint Replacement: No Oral Surgery: Yes (tonsilectomy) Pacemaker: No Tonsillectomy: Yes Other Surgery: Yes Social History Alcohol Use: Yes (1.5 pints of vodka per day) Tobacco Use: Yes (2 ppd) Substance Use: No (denies) Allergies-Medications (Allergen,Severity, Reaction): Coded Allergies: Sulfa (Sulfonamide Antibiotics) (Unverified Allergy, Intermediate, Hives, 06/16/17) Reported Meds & Prescriptions Reported Meds & Active Scripts Active No Active Prescriptions or Reported Medications Review of Systems General / Constitutional: No: Fever Eyes: No: Visual changes HENT: No: Headaches Cardiovascular: Positive: Chest Pain or Discomfort Respiratory: No: Shortness of Breath Gastrointestinal: No: Abdominal Pain Genitourinary: No: Dysuria Musculoskeletal: No: Pain Skin: No Rash Neurologic: No: Weakness Psychiatric: No: Depression Endocrine: No: Polydipsia Hematologic/Lymphatic: No: Easy Bruising Physical Exam Narrative GENERAL: Well-nourished, well-developed patient. SKIN: Focused skin assessment warm/dry. HEAD: Normocephalic. EYES: No scleral icterus. No injection or drainage. NECK: Supple, trachea midline. No JVD or lymphadenopathy. CARDIOVASCULAR: Regular rate and rhythm without murmurs, gallops, or rubs. RESPIRATORY: Breath sounds equal bilaterally. No accessory muscle use. GASTROINTESTINAL: Abdomen soft, non-tender, nondistended. MUSCULOSKELETAL: No cyanosis, or edema. BACK: Nontender without obvious deformity. No CVA tenderness. Neurologic exam normal. Data Data Last Documented VS Vital Signs Date Time Temp Pulse Resp B/P (MAP) Pulse Ox O2 Delivery O2 Flow Rate FiO2 08/14/17 21:45 08/14/17 21:08 92 18 99 Room Air 08/14/17 13:39 97.5 Orders Orders Complete Blood Count With Diff (08/14/17 21:09) Comprehensive Metabolic Panel (08/14/17 21:09) Creatine Kinase (Cpk) (08/14/17 21:09) Troponin I (08/14/17 21:09) Prothrombin Time / Inr (Pt) (08/14/17 21:09) Act Partial Throm Time (Ptt) (08/14/17 21:09) Lipase (08/14/17 21:09) Chest, Single Ap (08/14/17 21:09) Iv Access Insert/Monitor (08/14/17 21:09) Ecg Monitoring (08/14/17 21:09) Oximetry (08/14/17 21:09) Drug Screen, Random Urine (08/14/17 21:09) Alcohol (Ethanol) (08/14/17 21:09) Pantoprazole Inj (Protonix Inj) (08/14/17 21:15) Al-Mag Hy-Si 40-40-4 Mg/Ml Liq (Mag-Al P (08/14/17 21:15) Kffem-Maidoz-Cqqzhp-Pb Liq ( Liq (08/14/17 21:15) Pantoprazole (Protonix) (08/14/17 22:00) Electrocardiogram (08/14/17 21:00) Labs Laboratory Tests Test 08/14/17 21:15 White Blood Count 5.7 TH/MM3 Red Blood Count 4.67 MIL/MM3 Hemoglobin 13.5 GM/DL Hematocrit 40.6 % Mean Corpuscular Volume 86.8 FL Mean Corpuscular Hemoglobin 28.8 PG Mean Corpuscular Hemoglobin Concent 33.2 % Red Cell Distribution Width 16.0 % Platelet Count 220 TH/MM3 Mean Platelet Volume 8.1 FL Neutrophils (%) (Auto) 52.7 % Lymphocytes (%) (Auto) 38.1 % Monocytes (%) (Auto) 7.1 % Eosinophils (%) (Auto) 0.1 % Basophils (%) (Auto) 2.0 % Neutrophils # (Auto) 3.0 TH/MM3 Lymphocytes # (Auto) 2.2 TH/MM3 Monocytes # (Auto) 0.4 TH/MM3 Eosinophils # (Auto) 0.0 TH/MM3 Basophils # (Auto) 0.1 TH/MM3 CBC Comment DIFF FINAL Differential Comment Prothrombin Time 10.1 SEC Prothromb Time International Ratio 1.0 RATIO Activated Partial Thromboplast Time 28.5 SEC Blood Urea Nitrogen 17 MG/DL Creatinine 0.69 MG/DL Random Glucose 95 MG/DL Total Protein 7.1 GM/DL Albumin 3.2 GM/DL Calcium Level 8.5 MG/DL Alkaline Phosphatase 150 U/L Aspartate Amino Transf (AST/SGOT) 1238 U/L Alanine Aminotransferase (ALT/SGPT) 877 U/L Total Bilirubin 0.4 MG/DL Sodium Level 139 MEQ/L Potassium Level 4.0 MEQ/L Chloride Level 104 MEQ/L Carbon Dioxide Level 19.0 MEQ/L Anion Gap 16 MEQ/L Estimat Glomerular Filtration Rate 89 ML/MIN Total Creatine Kinase 79 U/L Troponin I LESS THAN 0.02 NG/ML Lipase 97 U/L Ethyl Alcohol Level 265 MG/DL MDM Medical Decision Making Medical Screen Exam Complete: Yes Emergency Medical Condition: Yes Interpretation(s) EKG shows sinus rhythm nonspecific ST-T wave change. Inverted T-wave in list 3 , aVF, V1, V2. Differential Diagnosis Differential diagnosis including musculoskeletal, esophageal spasm, pancreatitis , gastritis, PUD, colitis, UTI, pyelonephritis, nephrolithiasis, angina, OK, PE , pneumothorax. Narrative Course 52-year-old female with chest pain. History of alcohol abuse. I was informed by my nurse that patient requested IV to be removed and left without telling the nurse that she had left the room. Diagnosis Primary Impression: Alcohol intoxication Qualified Codes: F10.920 - Alcohol use, unspecified with intoxication, uncomplicated Additional Impression: Chest pain Referrals: [facility] Patient Instructions: General Instructions Departure Forms: Tests/Procedures Additional Instructions: Follow-up in a detoxification center such as [facility]. Return for any emergent medical conditions. Patient left AMA after complained of chest pain. Scripts No Active Prescriptions or Reported Meds Disposition: 07 AGAINST MEDICAL ADVICE Condition: Junior Lester MD Aug 14, 2017 21:18
[2017-08-14 21:39] LABS: BASOPHIL # 0.1 TH/MM3 (0-0.2); EOSINOPHIL % 0.1 % (0.0-4.0); HEMATOCRIT 40.6 % (35.0-46.0); HEMOGLOBIN 13.5 GM/DL (11.6-15.3); LYMPH % 38.1 % (9.0-44.0); LYMPHOCYTE # 2.2 TH/MM3 (1.0-4.8); MEAN CELL VOLUME 86.8 FL (80.0-100.0); MEAN CORPUSCULAR HEMOGLOBIN 28.8 PG (27.0-34.0); MEAN CORPUSCULAR HGB CONC 33.2 % (32.0-36.0); MEAN PLATELET VOLUME 8.1 FL (7.0-11.0); MONO % 7.1 % (0.0-8.0); MONOCYTE # 0.4 TH/MM3 (0-0.9); NEUT % 52.7 % (16.0-70.0); PLATELET COUNT 220 TH/MM3 (150-450); RED BLOOD COUNT 4.67 MIL/MM3 (4.00-5.30); WHITE BLOOD COUNT 5.7 TH/MM3 (4.0-11.0)
[2017-08-14 21:52] LABS: ALT (GPT) 877 U/L (10-53)
[2017-08-14 21:53] LABS: PROTHROMBIN TIME - PATIENT 10.1 SEC (9.8-11.6)
[2017-08-14] MEDS ORDERED: PANTOPRAZOLE SOD 40 MG DELAYED RELEASE TAB PO ONE (22:00)
[2017-08-14 22:02] LABS: ALBUMIN 3.2 GM/DL (3.4-5.0); ALKALINE PHOSPHATASE 150 U/L (45-117); AST (GOT) 1238 U/L (15-37); BLOOD UREA NITROGEN 17 MG/DL (7-18); CALCIUM 8.5 MG/DL (8.5-10.1); CHLORIDE 104 MEQ/L (98-107); CREATININE 0.69 MG/DL (0.50-1.00); GLOMERULAR FILTRATION RATE 89 ML/MIN (>89); GLUCOSE,RANDOM 95 MG/DL (74-106); SODIUM (NA) 139 MEQ/L (136-145); TOTAL BILIRUBIN ADULT 0.4 MG/DL (0.2-1.0); TOTAL PROTEIN 7.1 GM/DL (6.4-8.2); TROPONIN I LESS THAN 0.02 NG/ML (0.02-0.05)
--- NOTE | 2017-08-14 22:26 | RADRPT ---
EXAM DATE/TIME: 08/14/2017 21:15 [place] COMPARISON: No previous studies available for comparison. INDICATIONS : Chest pain, short of breath ETOH MEDICAL HISTORY : None. SURGICAL HISTORY : None. ENCOUNTER: Initial ACUITY: 1 day PAIN SCORE: 7/10 LOCATION: Bilateral chest FINDINGS: A single view of the chest demonstrates the lungs to be symmetrically aerated without evidence of mas s, infiltrate or effusion. The cardiomediastinal contours are unremarkable. Osseous structures are intact. CONCLUSION: No acute disease. Vasyl Kearney MD on August 14, 2017 at 22:24 Board Certified Radiologist. This report was verified electronically.
--- NOTE | 2017-08-15 10:34 | EKG ---
Date Performed: 08/14/2017 Time Performed: 21:00:26 PTAGE: 52 years EKG: Sinus rhythm POSSIBLE LEFT ATRIAL ENLARGEMENT BORDERLINE ECG Since the PREVIOUS TRACING , no significant change noted PREVIOUS TRACIN08/11/2016 16.15 DOCTOR: Maurilio Guajardo Interpretating Date/Time 08/15/2017 10:31:08
== END 2017-08-14 22:45 | disposition left against medical advice (07) ==
LOC: NEPD 13:17
DX: F10.129 Alcohol abuse with intoxication, unspecified (principal); R94.31 Abnormal electrocardiogram [ECG] [EKG]; F41.9 Anxiety disorder, unspecified; F32.9 Major depressive disorder, single episode, unspecified; F17.200 Nicotine dependence, unspecified, uncomplicated
CPT/HCPCS: 71045; 80053; 80307; 82550; 83690; 84484; 85025; 85610; 85730; 93005; 99285